=== PATIENT | female | born 1945 | race Caucasian/White ===

== ENCOUNTER 2020-08-12 20:52 | Inpatient (IN) | payer MEDICARE, SELFPAY ==
[2020-08-13] VITALS (10 sets, daily range): BP systolic 101–152; BP diastolic 46–88; PULSE 74–117; RESP 18–28; TEMP 36.3–37.1; O2SAT 94–100; BMI 12.9
[2020-08-13] MEDS: LORazepam 1 MG TABLET PO (00:25)
[2020-08-13] MEDS: methylPREDNISolone Sod Succ/PF 125 MG/2 ML VIAL 60 MG IVPUSH (05:23)
--- NOTE | 2020-08-13 05:42 | P.HPIM_ITS ---
History of Present Illness Date of Service: 08/12/20 Chief Complaint: shortness of breath this is a pleasant 74-year-old female who presents to the hospice with complaints of shortness of breath for the past 2 days. Patient has underlying COPD and is on baseline 2-3 L of oxygen she reports an increase in her cough and sputum production. She has no fever and chill, she is an active smoker, no recent sick contacts or travel. She denies any chest pain, any headache or change in vision, no palpitation, no abdominal pain nausea or vomiting, no urinary symptoms and no lower extremity edema. patient denies any melena or red blood per rectum On arrival to the ED patient hemodynamically stable with no significant abnormal vitals labs are significant for hemoglobin of 8.3 ( 11.7 on 07/02), hematocrit of 23 point and MCV of 96.3 guaiac negative patient received 1 unit of PRBC in the EDwill be admitted for COPD exacerbation and acute anemia past medical history: COPD, vertigo, anxiety and depression, past surgical history: I was unable to obtain this information social history: Comes from home, lives with her son,uses device to ambulate, currently smokes 5-10 cigarettes daily, denies any alcohol or illicit drugs Review of Systems Review of Systems: Yes all other systems are reviewed and are negative Meds Allergies Allergy/AdvReac Type Severity Reaction Status Date / Time No Known Allergies Allergy Unverified 07/30/20 14:53 [No Known Allergies*] Home Medications Medication Instructions Recorded Confirmed Type albuterol sulfate 1 inh INHALATION Q4-6H PRN 08/13/20 08/13/20 History buspirone 5 mg PO TID 08/13/20 08/13/20 History mgdyxzxvdvo-umjfdngug-lrroodml 1 puff INHALATION Q4-6H PRN 08/13/20 08/13/20 History ipratropium-albuterol 3 ml INHALATION Q6H PRN 08/13/20 08/13/20 History ipratropium-albuterol [Combivent 1 puff INHALATION BID 08/13/20 08/13/20 History Respimat] lorazepam 1 mg PO BEDTIME PRN 08/13/20 08/13/20 History meclizine 12.5 mg PO TID PRN 08/13/20 08/13/20 History metoprolol tartrate 12.5 mg PO BID 08/13/20 08/13/20 History omeprazole 20 mg PO DAILY 08/13/20 08/13/20 History oxycodone-acetaminophen 1 tab PO Q6H PRN 08/13/20 08/13/20 History Physical Exam Vital Signs and Narrative: Vital Signs: Last Vital Signs Temp 97.4 F 08/13/20 04:52 Pulse 117 H 08/13/20 04:52 Resp 28 H 08/13/20 04:52 BP 130/78 08/13/20 04:52 Pulse Ox 94 08/13/20 04:52 Body Mass Index 12.9 vital significant for temp of 99? per warm, pulse of 110, respiratory rate of 28, blood pressure 122/34, pulse ox 100% on 3 L of oxygen Eyes: General: appearance normal, both eyes and all related structures Resp: Other: tachycardia, minimal wheezing Results Labs Labs: Laboratory Tests 08/12/20 08/12/20 08/12/20 17:05 17:05 17:05 WBC 8.8 RBC 2.44 L Hgb 8.3 L Hct 23.5 L MCV 96.3 MCH 34.0 H MCHC 35.3 H RDW Coeff of Joe 18.0 H Plt Count 261 MPV 10.4 Immature Gran % (Auto) 0.3 Neut % (Auto) 62.1 Lymph % (Auto) 12.7 L [place] % (Auto) 9.5 Eos % (Auto) 14.7 H Baso % (Auto) 0.7 Abs Immat Gran (auto) 0.03 Absolute Lymphs (auto) 1.1 L Absolute Monos (auto) 0.8 Absolute Eos (auto) 1.3 H Absolute Basos (auto) 0.1 Absolute Nucleated RBC 0.000 Nucleated RBC % (auto) 0.0 Absolute Neutrophils 5.4 PT INR APTT Hold Blue Top Sodium 140 Potassium 3.9 Chloride 99 Bicarbonate 36 H Anion Gap 9 L BUN 7 L D Creatinine 0.58 Estimated Creat Clear 43.9 Est GFR (Non-Af Amer) > 60 Random Glucose 86 Lactic Acid Iron 49 TIBC 318 Iron Saturation 15 Ferritin 19 Total Bilirubin 1.1 H Direct Bilirubin 0.6 H AST 18 ALT 9 Alkaline Phosphatase 58 Troponin I High Sens < 3.5 D B-Natriuretic Peptide 126 H Total Protein 6.2 L Albumin 3.8 Vitamin B12 Folate Urine Color Urine Appearance Urine pH Ur Specific [place] Urine Protein Urine Glucose (UA) Urine Ketones Urine Blood Urine Nitrite Urine WBC (Auto) Stool Occult Blood ABO Group Blood Bank Comment 08/12/20 08/12/20 08/12/20 17:05 17:53 17:53 WBC RBC Hgb Hct MCV MCH MCHC RDW Coeff of Joe Plt Count MPV Immature Gran % (Auto) Neut % (Auto) Lymph % (Auto) [place] % (Auto) Eos % (Auto) Baso % (Auto) Abs Immat Gran (auto) Absolute Lymphs (auto) Absolute Monos (auto) Absolute Eos (auto) Absolute Basos (auto) Absolute Nucleated RBC Nucleated RBC % (auto) Absolute Neutrophils PT 13.5 H D INR 1.1 APTT 38.0 Hold Blue Top SEE NOTE Sodium Potassium Chloride Bicarbonate Anion Gap BUN Creatinine Estimated Creat Clear Est GFR (Non-Af Amer) Random Glucose Lactic Acid 0.6 Iron TIBC Iron Saturation Ferritin Total Bilirubin Direct Bilirubin AST ALT Alkaline Phosphatase Troponin I High Sens B-Natriuretic Peptide Total Protein Albumin Vitamin B12 Folate Urine Color YELLOW Urine Appearance CLEAR Urine pH 7.0 Ur Specific [place] 1.010 Urine Protein NEG Urine Glucose (UA) NEG Urine Ketones NEG Urine Blood NEG Urine Nitrite NEG Urine WBC (Auto) NEG Stool Occult Blood ABO Group Blood Bank Comment 08/12/20 08/12/20 08/12/20 19:03 19:50 19:59 WBC RBC Hgb Hct MCV MCH MCHC RDW Coeff of Joe Plt Count MPV Immature Gran % (Auto) Neut % (Auto) Lymph % (Auto) [place] % (Auto) Eos % (Auto) Baso % (Auto) Abs Immat Gran (auto) Absolute Lymphs (auto) Absolute Monos (auto) Absolute Eos (auto) Absolute Basos (auto) Absolute Nucleated RBC Nucleated RBC % (auto) Absolute Neutrophils PT INR APTT Hold Blue Top Sodium Potassium Chloride Bicarbonate Anion Gap BUN Creatinine Estimated Creat Clear Est GFR (Non-Af Amer) Random Glucose Lactic Acid Iron TIBC Iron Saturation Ferritin Total Bilirubin Direct Bilirubin AST ALT Alkaline Phosphatase Troponin I High Sens B-Natriuretic Peptide Total Protein Albumin Vitamin B12 Folate Urine Color Urine Appearance Urine pH Ur Specific [place] Urine Protein Urine Glucose (UA) Urine Ketones Urine Blood Urine Nitrite Urine WBC (Auto) Stool Occult Blood NEG ABO Group T&S/BLOOD AVAILABLE Blood Bank Comment PRODUCT AVAILABLE 08/13/20 08/13/20 07:00 07:00 WBC Cancelled RBC Cancelled Hgb Cancelled Hct Cancelled MCV Cancelled MCH Cancelled MCHC Cancelled RDW Coeff of Joe Cancelled Plt Count Cancelled MPV Cancelled Immature Gran % (Auto) Cancelled Neut % (Auto) Cancelled Lymph % (Auto) Cancelled [place] % (Auto) Cancelled Eos % (Auto) Cancelled Baso % (Auto) Cancelled Abs Immat Gran (auto) Cancelled Absolute Lymphs (auto) Cancelled Absolute Monos (auto) Cancelled Absolute Eos (auto) Cancelled Absolute Basos (auto) Cancelled Absolute Nucleated RBC Cancelled Nucleated RBC % (auto) Cancelled Absolute Neutrophils PT INR APTT Hold Blue Top Sodium Potassium Chloride Bicarbonate Anion Gap BUN Creatinine Estimated Creat Clear Est GFR (Non-Af Amer) Random Glucose Lactic Acid Iron TIBC Iron Saturation Ferritin Total Bilirubin Direct Bilirubin AST ALT Alkaline Phosphatase Troponin I High Sens B-Natriuretic Peptide Total Protein Albumin Vitamin B12 Cancelled Folate Cancelled Urine Color Urine Appearance Urine pH Ur Specific [place] Urine Protein Urine Glucose (UA) Urine Ketones Urine Blood Urine Nitrite Urine WBC (Auto) Stool Occult Blood ABO Group Blood Bank Comment Assessment and Plan (1) COPD with exacerbation: Status: Acute cough, dyspnea, sputum production on baseline 3 L of oxygen currently not requiring more chest x-ray negative for any acute infection or pulmonary congestion Plan: - Start patient on Solu-Medrol IV 40 b.i.d. had - DuoNeb q.i.d., schedule as well as p.r.n - O2 as required - azithromycin (2) Normocytic anemia: Status: Acute - unclear etiology at this time - hemoglobin dropped from 11 to 8 now within the span of 1 month - patient guaiac negative - denies taking any NSAIDs, denies any recent significant weight - no evidence of abdominal pain, GI bleed Plan - will obtain ferritin - B12 and folic acid - may need colonoscopy on outpatient basis (3) Anxiety: Status: Acute continue buspar and lorazepam
[2020-08-13 06:52] LABS: Basophils Percent Auto 0.3 % (0-2); Hematocrit 33.1 % (37-47); Hemoglobin 11.2 g/dl (12.0-16.0); Imm Gran Abs Auto 0.06 X10*3/uL (0.00-0.03); Imm Gran Pct Auto 0.8 % (0.0-0.4); Lymphocytes Absolute Auto 0.6 X10*3/uL (1.2-4.9); Lymphocytes Percent Auto 7.5 % (20-40); MANUAL DIFF FLAG SCAN; Mean Corpuscular HGB Conc 33.8 g/dl (31.0-35.0); Mean Corpuscular Hemoglobin 32.5 pg (27.0-33.0); Mean Corpuscular Volume 95.9 fL (80-98); Mean Platelet Volume 10.9 fL (9.4-12.3); Monocytes Absolute Auto 0.1 X10*3/uL (0.1-1.2); Monocytes Percent Auto 1.7 % (2-11); Neutrophils Absolute Auto 6.7 X10*3/uL (2.0-8.3); Neutrophils Percent Auto 89.7 % (45-73); Platelet Count 305 X10*3/uL (160-400); Red Blood Count 3.45 X10*6/uL (4.20-5.50); Red Cell Distribution Width 17.6 % (11.0-16.0); SCAN SMEAR FLAG 1; White Blood Count 7.4 X10*3/uL (4.8-10.8)
[2020-08-13] MEDS: 0.9 % Sodium Chloride Flush 3 ML SYRINGE 2 ML IVFLUSH ×3 (07:53→21:25)
[2020-08-13] MEDS: Metoprolol Tartrate 12.5 MG HALFTAB PO ×2 (07:55→21:25)
[2020-08-13] MEDS: busPIRone HCl 5 MG TABLET PO ×3 (07:57→21:32)
[2020-08-13 08:03] LABS: Folate 5.2 ng/mL (> or = 4.0); Vitamin B12 1099 pg/mL (200-900)
[2020-08-13] MEDS: Albuterol/Iprat 2.5/0.5MG 3 ML AMPUL.NEB INHALE ×4 (08:08→20:13)
[2020-08-13 08:22] LABS: SLIDE REVIEW VERIFIED
--- NOTE | 2020-08-13 10:08 | MHC.CM.PN ---
CM spoke with Son/HCP/Thien because Patient was sound asleep. Patient lives in a house with her Son and she has a walker PRN. Patient is active with [facility] and the goal is to return home with these services.CM has initiated and will follow for dc planning.Patient's O2 is from [facility]. IMM addressed and original will be mailed certified letter to Son and a copy has been placed on the chart.
--- NOTE | 2020-08-13 12:48 | P.PNIM_ITS ---
Subjective Subjective Date of Service: 08/13/20 Interval History: patient seen and examined at bedside patient still reporting shortness of breath patient was little anxious Constitutional Constitutional: Reports weakness Cardiovascular Cardiovascular: Reports dyspnea Respiratory Respiratory: Reports chest congestion and Reports dyspnea Neurologic Neurologic: Reports weakness Physical Exam Vital Signs and I&O and Narrative: Vital Signs and I&O: Vital Signs Temp 98.4 F 08/13/20 11:37 Pulse 83 08/13/20 11:37 Resp 20 08/13/20 11:37 BP 115/58 L 08/13/20 11:37 Pulse Ox 100 08/13/20 11:37 Intake & Output 08/12/20 08/13/20 08/13/20 18:59 06:59 18:59 Output Total 440 / 440 Balance -440 / -440 Urine Output (Aver age ml/kg/hr) 1.10 1.10 Weight 33.2 kg Output: Output, Urine Am ount 440 / 440 Other: Number of Incont inent Voids 1 Number of Bowel Movements 1 Urine Bedpan incontinet Urine Color Yellow Stool Bedpan Stool Color Dark Brown Stool Consistenc y Semi Formed Body Mass Index 12.9 Const: General: anxious Resp: Effort & Inspection: audible wheezes Auscultation: wheezes Cardio: Jugular venous distension: no JVD Objective Data Current Medications Generic Name Dose Route Start Last Admin Trade Name Freq PRN Reason Stop Dose Admin Acetaminophen 650 mg 08/13/20 03:41 Acetaminophen 325 Mg Tablet PO Q6H PRN Pain, Mild (Pain Scale 1-3) Albuterol/Ipratropium 3 ml 08/13/20 08:00 08/13/20 11:17 Albuterol/Iprat 2.5/0.5mg 3 Ml Ampul.Neb INHALE 3 ml RQ4H WHILE AWAKE MARCOS Administration Albuterol/Ipratropium 3 ml 08/13/20 03:42 Albuterol/Iprat 2.5/0.5mg 3 Ml Ampul.Neb INHALE RQ4H PRN Wheezing Buspirone HCl 5 mg 08/13/20 09:00 08/13/20 07:57 Buspirone Hcl 5 Mg Tablet PO 5 mg TID MARCOS Administration Docusate Sodium 100 mg 08/13/20 03:44 Docusate Sodium 100 Mg Capsule PO Q24H PRN Constipation Lorazepam 0.5 mg 08/13/20 03:45 Lorazepam 0.5 Mg Tablet PO DAILY PRN Anxiety Lorazepam 1 mg 08/13/20 21:00 08/13/20 00:25 Lorazepam 1 Mg Tablet PO 1 mg BEDTIME PRN Administration Sleep Meclizine HCl 12.5 mg 08/13/20 03:47 Meclizine Hcl 12.5 Mg Tablet PO TID PRN DIZZINESS Methylprednisolone Sodium Succinate 40 mg 08/13/20 08:30 08/13/20 09:19 Methylprednisolone Sod Succ/Pf 40 Mg/Ml Vial IVPUSH 40 mg Q12H MARCOS Administration Metoprolol Tartrate 12.5 mg 08/13/20 09:00 08/13/20 07:55 Metoprolol Tartrate 12.5 Mg Halftab PO 12.5 mg BID MARCOS Administration Protocol Omeprazole 20 mg 08/13/20 06:30 08/13/20 05:27 Omeprazole 20 Mg Capsule.Dr PO Not Given DAILY@0630 [facility] Ondansetron HCl 4 mg 08/13/20 03:49 Ondansetron Hcl 4 Mg/2 Ml Vial IVPUSH Q8H PRN Nausea and Vomiting Sodium Chloride 2 ml 08/13/20 08:00 08/13/20 07:53 0.9 % Sodium Chloride Flush 3 Ml Syringe IVFLUSH 2 ml QSHIFT [facility] Administration Labs CBC & Chem 7: 08/13/20 05:45 08/12/20 17:05 Labs: Laboratory Results - last 24 hr 08/12/20 08/12/20 08/12/20 17:05 17:05 17:05 MCV 96.3 MCH 34.0 H MCHC 35.3 H RDW RDW Coeff of Joe 18.0 H Plt Count 261 MPV 10.4 Immature Gran % (Auto) 0.3 Neut % (Auto) 62.1 Lymph % (Auto) 12.7 L [place] % (Auto) 9.5 Eos % (Auto) 14.7 H Baso % (Auto) 0.7 Neut # (Auto) Lymph # (Auto) [place] # (Auto) Eos # (Auto) Baso # (Auto) Abs Immat Gran (auto) 0.03 Absolute Lymphs (auto) 1.1 L Absolute Monos (auto) 0.8 Absolute Eos (auto) 1.3 H Absolute Basos (auto) 0.1 Absolute Nucleated RBC 0.000 Nucleated RBC % (auto) 0.0 Absolute Neutrophils 5.4 Smear Tech's Comments PT INR APTT Hold Blue Top Bicarbonate 36 H Anion Gap 9 L Estimated Creat Clear 43.9 Est GFR (Non-Af Amer) > 60 Random Glucose 86 Lactic Acid Iron 49 TIBC 318 Iron Saturation 15 Ferritin 19 Total Bilirubin 1.1 H Direct Bilirubin 0.6 H AST 18 ALT 9 Alkaline Phosphatase 58 Troponin I High Sens < 3.5 D B-Natriuretic Peptide 126 H Total Protein 6.2 L Albumin 3.8 Vitamin B12 Folate Urine Color Urine Appearance Urine pH Ur Specific [place] Urine Protein Urine Glucose (UA) Urine Ketones Urine Blood Urine Nitrite Urine WBC (Auto) Stool Occult Blood Blood Type ABO Group Antibody Screen Blood Bank Comment 08/12/20 08/12/20 08/12/20 17:05 17:53 17:53 MCV MCH MCHC RDW RDW Coeff of Joe Plt Count MPV Immature Gran % (Auto) Neut % (Auto) Lymph % (Auto) [place] % (Auto) Eos % (Auto) Baso % (Auto) Neut # (Auto) Lymph # (Auto) [place] # (Auto) Eos # (Auto) Baso # (Auto) Abs Immat Gran (auto) Absolute Lymphs (auto) Absolute Monos (auto) Absolute Eos (auto) Absolute Basos (auto) Absolute Nucleated RBC Nucleated RBC % (auto) Absolute Neutrophils Smear Tech's Comments PT 13.5 H D INR 1.1 APTT 38.0 Hold Blue Top SEE NOTE Bicarbonate Anion Gap Estimated Creat Clear Est GFR (Non-Af Amer) Random Glucose Lactic Acid 0.6 Iron TIBC Iron Saturation Ferritin Total Bilirubin Direct Bilirubin AST ALT Alkaline Phosphatase Troponin I High Sens B-Natriuretic Peptide Total Protein Albumin Vitamin B12 Folate Urine Color YELLOW Urine Appearance CLEAR Urine pH 7.0 Ur Specific [place] 1.010 Urine Protein NEG Urine Glucose (UA) NEG Urine Ketones NEG Urine Blood NEG Urine Nitrite NEG Urine WBC (Auto) NEG Stool Occult Blood Blood Type ABO Group Antibody Screen Blood Bank Comment 08/12/20 08/12/20 08/12/20 19:03 19:50 19:59 MCV MCH MCHC RDW RDW Coeff of Joe Plt Count MPV Immature Gran % (Auto) Neut % (Auto) Lymph % (Auto) [place] % (Auto) Eos % (Auto) Baso % (Auto) Neut # (Auto) Lymph # (Auto) [place] # (Auto) Eos # (Auto) Baso # (Auto) Abs Immat Gran (auto) Absolute Lymphs (auto) Absolute Monos (auto) Absolute Eos (auto) Absolute Basos (auto) Absolute Nucleated RBC Nucleated RBC % (auto) Absolute Neutrophils Smear Tech's Comments PT INR APTT Hold Blue Top Bicarbonate Anion Gap Estimated Creat Clear Est GFR (Non-Af Amer) Random Glucose Lactic Acid Iron TIBC Iron Saturation Ferritin Total Bilirubin Direct Bilirubin AST ALT Alkaline Phosphatase Troponin I High Sens B-Natriuretic Peptide Total Protein Albumin Vitamin B12 Folate Urine Color Urine Appearance Urine pH Ur Specific [place] Urine Protein Urine Glucose (UA) Urine Ketones Urine Blood Urine Nitrite Urine WBC (Auto) Stool Occult Blood NEG Blood Type ABO Group T&S/BLOOD AVAILABLE Antibody Screen Blood Bank Comment PRODUCT AVAILABLE 08/12/20 08/13/20 08/13/20 19:59 05:45 05:45 MCV 95.9 MCH 32.5 MCHC 33.8 RDW 17.6 H RDW Coeff of Joe Plt Count 305 MPV 10.9 Immature Gran % (Auto) 0.8 H Neut % (Auto) 89.7 H Lymph % (Auto) 7.5 L [place] % (Auto) 1.7 L Eos % (Auto) 0.0 Baso % (Auto) 0.3 Neut # (Auto) 6.7 Lymph # (Auto) 0.6 L [place] # (Auto) 0.1 Eos # (Auto) 0.0 Baso # (Auto) 0.0 Abs Immat Gran (auto) 0.06 H Absolute Lymphs (auto) Absolute Monos (auto) Absolute Eos (auto) Absolute Basos (auto) Absolute Nucleated RBC 0.000 Nucleated RBC % (auto) 0.0 Absolute Neutrophils Smear Tech's Comments VERIFIED PT INR APTT Hold Blue Top Bicarbonate Anion Gap Estimated Creat Clear Est GFR (Non-Af Amer) Random Glucose Lactic Acid Iron TIBC Iron Saturation Ferritin Total Bilirubin Direct Bilirubin AST ALT Alkaline Phosphatase Troponin I High Sens B-Natriuretic Peptide Total Protein Albumin Vitamin B12 1099 H Folate 5.2 Urine Color Urine Appearance Urine pH Ur Specific [place] Urine Protein Urine Glucose (UA) Urine Ketones Urine Blood Urine Nitrite Urine WBC (Auto) Stool Occult Blood Blood Type O Positive ABO Group Antibody Screen NEGATIVE Blood Bank Comment 08/13/20 08/13/20 07:00 07:00 MCV Cancelled MCH Cancelled MCHC Cancelled RDW RDW Coeff of Joe Cancelled Plt Count Cancelled MPV Cancelled Immature Gran % (Auto) Cancelled Neut % (Auto) Cancelled Lymph % (Auto) Cancelled [place] % (Auto) Cancelled Eos % (Auto) Cancelled Baso % (Auto) Cancelled Neut # (Auto) Lymph # (Auto) [place] # (Auto) Eos # (Auto) Baso # (Auto) Abs Immat Gran (auto) Cancelled Absolute Lymphs (auto) Cancelled Absolute Monos (auto) Cancelled Absolute Eos (auto) Cancelled Absolute Basos (auto) Cancelled Absolute Nucleated RBC Cancelled Nucleated RBC % (auto) Cancelled Absolute Neutrophils Smear Tech's Comments PT INR APTT Hold Blue Top Bicarbonate Anion Gap Estimated Creat Clear Est GFR (Non-Af Amer) Random Glucose Lactic Acid Iron TIBC Iron Saturation Ferritin Total Bilirubin Direct Bilirubin AST ALT Alkaline Phosphatase Troponin I High Sens B-Natriuretic Peptide Total Protein Albumin Vitamin B12 Cancelled Folate Cancelled Urine Color Urine Appearance Urine pH Ur Specific [place] Urine Protein Urine Glucose (UA) Urine Ketones Urine Blood Urine Nitrite Urine WBC (Auto) Stool Occult Blood Blood Type ABO Group Antibody Screen Blood Bank Comment
--- NOTE | 2020-08-13 15:10 | MHC.CLN ---
PT IS MODERATELY MALNOURISHED WILL ADD ESNURE TO INCREASE KCALS SEE ALSO NUTRITION ASSESSMENT
[2020-08-13] MEDS: oxyCODONE HCl Immed Release 5 MG TABLET 10 MG PO (17:16)
[2020-08-14] VITALS (10 sets, daily range): BP systolic 93–133; BP diastolic 45–64; PULSE 74–82; RESP 18–20; TEMP 36.6–37.2; O2SAT 92–99; BMI 14.7
[2020-08-14] MEDS: oxyCODONE HCl Immed Release 5 MG TABLET 10 MG PO ×4 (00:13→20:58)
[2020-08-14] MEDS: LORazepam 1 MG TABLET PO ×2 (00:37→20:13)
[2020-08-14] MEDS: Omeprazole 20 MG CAPSULE.DR PO (05:20)
[2020-08-14] MEDS: LORazepam 0.5 MG TABLET PO (05:22)
[2020-08-14] MEDS: Albuterol/Iprat 2.5/0.5MG 3 ML AMPUL.NEB INHALE ×3 (07:44→19:59)
[2020-08-14] MEDS: Flu Vacc QS2020-21(6mos up)/PF 0.5 ML SYRINGE IM (08:00)
[2020-08-14] MEDS: Metoprolol Tartrate 12.5 MG HALFTAB PO ×2 (08:01→20:12)
[2020-08-14] MEDS: 0.9 % Sodium Chloride Flush 3 ML SYRINGE 2 ML IVFLUSH ×2 (08:01→15:13)
[2020-08-14] MEDS: busPIRone HCl 5 MG TABLET PO ×3 (08:04→20:13)
--- NOTE | 2020-08-14 13:58 | HO.PM.IMPN ---
Subjective Subjective Date of Service: 08/13/20 Interval History: patient seen and examined at bedside patient still reporting shortness of breath some improvement Constitutional Constitutional: Reports weakness Cardiovascular Cardiovascular: Reports dyspnea Respiratory Respiratory: Reports chest congestion and Reports dyspnea Neurologic Neurologic: Reports weakness Physical Exam Vital Signs and I&O and Narrative: Vital Signs and I&O: Vital Signs Temp 98.6 F 08/14/20 11:29 Pulse 79 08/14/20 11:29 Resp 20 08/14/20 11:29 BP 114/53 L 08/14/20 11:29 Pulse Ox 96 08/14/20 11:29 Intake & Output 08/13/20 08/14/20 08/14/20 18:59 06:59 18:59 Intake Total 360 / 360 120 / 120 Output Total 0 / 1200 1200 / 1200 300 / 300 Balance 0 / -840 -840 / -840 -180 / -180 Urine Output (Aver age ml/kg/hr) 0.00 3.01 0.75 Weight 33.2 kg Intake: Intake, Oral [place] unt 360 / 360 120 / 120 Output: Output, Urine Am ount 0 / 1000 1000 / 1000 300 / 300 Output, Urine Am ount (Catheter) 200 / 200 Female Externa l 200 / 200 Other: Meal Refused No NPO No Lunch % Eaten 25% Dinner % Eaten 50% Number of Incont inent Voids 1 Number of Bowel Movements 3 Urine incontinet PUREWICK PUREWICK Urine Color Yellow Yellow Stool Bedpan Stool Color Black ([place]) Body Mass Index 12.9 Objective Data Current Medications Generic Name Dose Route Start Last Admin Trade Name Noeq PRN Reason Stop Dose Admin Acetaminophen 650 mg 08/13/20 03:41 Acetaminophen 325 Mg Tablet PO Q6H PRN Pain, Mild (Pain Scale 1-3) Albuterol/Ipratropium 3 ml 08/13/20 03:42 Albuterol/Iprat 2.5/0.5mg 3 Ml Ampul.Neb INHALE RQ4H PRN Wheezing Albuterol/Ipratropium 3 ml 08/14/20 08:00 08/14/20 11:31 Albuterol/Iprat 2.5/0.5mg 3 Ml Ampul.Neb INHALE 3 ml RQ4H WHILE AWAKE MARCOS Administration Buspirone HCl 5 mg 08/13/20 09:00 08/14/20 08:04 Buspirone Hcl 5 Mg Tablet PO 5 mg TID MARCOS Administration Docusate Sodium 100 mg 08/13/20 03:44 Docusate Sodium 100 Mg Capsule PO Q24H PRN Constipation Lorazepam 0.5 mg 08/13/20 03:45 08/14/20 05:22 Lorazepam 0.5 Mg Tablet PO 0.5 mg DAILY PRN Administration Anxiety Lorazepam 1 mg 08/13/20 21:00 08/14/20 00:37 Lorazepam 1 Mg Tablet PO 1 mg BEDTIME PRN Administration Sleep Lorazepam 1 mg 08/14/20 13:56 Lorazepam 1 Mg Tablet PO BEDTIME PRN Insomnia Meclizine HCl 12.5 mg 08/13/20 03:47 Meclizine Hcl 12.5 Mg Tablet PO TID PRN DIZZINESS Methylprednisolone Sodium Succinate 40 mg 08/13/20 08:30 08/14/20 08:01 Methylprednisolone Sod Succ/Pf 40 Mg/Ml Vial IVPUSH 40 mg Q12H MARCOS Administration Metoprolol Tartrate 12.5 mg 08/13/20 09:00 08/14/20 08:01 Metoprolol Tartrate 12.5 Mg Halftab PO 12.5 mg BID MARCOS Administration Protocol Omeprazole 20 mg 08/13/20 06:30 08/14/20 05:20 Omeprazole 20 Mg Capsule.Dr PO 20 mg DAILY@0630 MARCOS Administration Omeprazole 20 mg 08/15/20 09:00 Omeprazole 20 Mg/10 Ml Susp.Recon PO DAILY [facility] Ondansetron HCl 4 mg 08/13/20 03:49 Ondansetron Hcl 4 Mg/2 Ml Vial IVPUSH Q8H PRN Nausea and Vomiting Oxycodone HCl 10 mg 08/13/20 16:55 08/14/20 08:14 Oxycodone Hcl Immed Release 5 Mg Tablet PO 10 mg Q6H PRN Administration Pain, Moderate (Pain Scale 4-6 Sodium Chloride 2 ml 08/13/20 08:00 08/14/20 08:01 0.9 % Sodium Chloride Flush 3 Ml Syringe IVFLUSH 2 ml QSHIFT MARCOS Administration Labs CBC & Chem 7: 08/13/20 05:45 08/12/20 17:05 Assessment and Plan (1) COPD with exacerbation: Status: Acute Assessment and Plan: Still short of breath and wheezy some improvement continue IV steroids and nebulizer for 1 more day continue oxygen supplementation as need continue supportive management (2) Normocytic anemia: Status: Acute Assessment and Plan: hemoglobin was 8 on admission repeat hemoglobin around 11 no active bleeding monitor H&H (3) Anxiety: Status: Acute Assessment and Plan: continue home medication DVT prophylaxis mechanical devices given anemia
[2020-08-15] VITALS (10 sets, daily range): BP systolic 98–137; BP diastolic 48–56; PULSE 73–94; RESP 18–20; TEMP 36.3–37.2; O2SAT 95–100
[2020-08-15] MEDS: 0.9 % Sodium Chloride Flush 3 ML SYRINGE 2 ML IVFLUSH ×4 (00:17→23:53)
[2020-08-15] MEDS: oxyCODONE HCl Immed Release 5 MG TABLET 10 MG PO ×4 (05:03→23:52)
[2020-08-15] MEDS: busPIRone HCl 5 MG TABLET PO ×3 (07:30→20:18)
[2020-08-15] MEDS: Metoprolol Tartrate 12.5 MG HALFTAB PO ×2 (07:31→20:19)
[2020-08-15] MEDS: LORazepam 0.5 MG TABLET PO (07:34)
[2020-08-15] MEDS: Albuterol/Iprat 2.5/0.5MG 3 ML AMPUL.NEB INHALE ×4 (07:41→20:14)
--- NOTE | 2020-08-15 14:09 | HO.PM.IMPN ---
Subjective Subjective Interval History: patient seen and examined at bedside patient still reporting shortness of breath improving Physical Exam Vital Signs and I&O and Narrative: Vital Signs and I&O: Vital Signs Temp 97.8 F 08/15/20 11:44 Pulse 87 08/15/20 11:44 Resp 18 08/15/20 11:44 BP 137/56 L 08/15/20 11:44 Pulse Ox 95 08/15/20 11:44 Intake & Output 08/14/20 08/15/20 08/15/20 18:59 06:59 18:59 Intake Total 240 / 600 360 / 600 250 / 250 Output Total 300 / 1100 800 / 1100 550 / 550 Balance -60 / -500 -440 / -500 -300 / -300 Urine Output (Aver age ml/kg/hr) 0.75 1.76 1.21 Weight 37.8 kg Intake: Intake, Oral Anuj unt 240 / 360 120 / 360 250 / 250 Intake, Intraper itoneal Amount 240 / 240 Output: Output, Urine Am ount 300 / 1100 800 / 1100 550 / 550 Other: Meal Refused No Breakfast % Eate n 100% Lunch % Eaten 25% 50% Number of Incont inent Voids 1 Urine PUREWICK Bedpan Bedside Commode Urine Color Yellow Yellow Yellow Body Mass Index 14.7 Const: General: anxious Eyes: General: appearance normal, both eyes and all related structures Resp: Other: tachycardia, minimal wheezing Effort & Inspection: audible wheezes Auscultation: wheezes Cardio: Jugular venous distension: no JVD GI: Inspection: Yes normal to inspection Objective Data Current Medications Generic Name Dose Route Start Last Admin Trade Name Noeq PRN Reason Stop Dose Admin Acetaminophen 650 mg 08/13/20 03:41 Acetaminophen 325 Mg Tablet PO Q6H PRN Pain, Mild (Pain Scale 1-3) Albuterol/Ipratropium 3 ml 08/13/20 03:42 Albuterol/Iprat 2.5/0.5mg 3 Ml Ampul.Neb INHALE RQ4H PRN Wheezing Albuterol/Ipratropium 3 ml 08/14/20 08:00 08/15/20 11:22 Albuterol/Iprat 2.5/0.5mg 3 Ml Ampul.Neb INHALE 3 ml RQ4H WHILE AWAKE MARCOS Administration Buspirone HCl 5 mg 08/13/20 09:00 08/15/20 07:30 Buspirone Hcl 5 Mg Tablet PO 5 mg TID MARCOS Administration Docusate Sodium 100 mg 08/13/20 03:44 Docusate Sodium 100 Mg Capsule PO Q24H PRN Constipation Lorazepam 0.5 mg 08/13/20 03:45 08/15/20 07:34 Lorazepam 0.5 Mg Tablet PO 0.5 mg DAILY PRN Administration Anxiety Lorazepam 1 mg 08/13/20 21:00 08/14/20 20:13 Lorazepam 1 Mg Tablet PO 1 mg BEDTIME PRN Administration Sleep Lorazepam 1 mg 08/14/20 13:56 Lorazepam 1 Mg Tablet PO BEDTIME PRN Insomnia Meclizine HCl 12.5 mg 08/13/20 03:47 Meclizine Hcl 12.5 Mg Tablet PO TID PRN DIZZINESS Methylprednisolone Sodium Succinate 40 mg 08/13/20 08:30 08/15/20 07:30 Methylprednisolone Sod Succ/Pf 40 Mg/Ml Vial IVPUSH 40 mg Q12H MARCOS Administration Metoprolol Tartrate 12.5 mg 08/13/20 09:00 08/15/20 07:31 Metoprolol Tartrate 12.5 Mg Halftab PO 12.5 mg BID MARCOS Administration Protocol Omeprazole 20 mg 08/15/20 06:30 08/15/20 05:05 Omeprazole 20 Mg/10 Ml Susp.Recon PO 20 mg DAILY@0630 MARCOS Administration Ondansetron HCl 4 mg 08/13/20 03:49 Ondansetron Hcl 4 Mg/2 Ml Vial IVPUSH Q8H PRN Nausea and Vomiting Oxycodone HCl 10 mg 08/13/20 16:55 08/15/20 11:16 Oxycodone Hcl Immed Release 5 Mg Tablet PO 10 mg Q6H PRN Administration Pain, Moderate (Pain Scale 4-6 Sodium Chloride 2 ml 08/13/20 08:00 08/15/20 07:31 0.9 % Sodium Chloride Flush 3 Ml Syringe IVFLUSH 2 ml QSHIFT MARCOS Administration Labs CBC & Chem 7: 08/13/20 05:45 08/12/20 17:05 Assessment and Plan (1) COPD with exacerbation: Status: Acute Assessment and Plan: shortness of breath and wheezing improving continue IV steroids and nebulizer for 1 more day continue oxygen supplementation as need continue supportive management (2) Normocytic anemia: Status: Acute Assessment and Plan: hemoglobin was 8 on admission repeat hemoglobin around 11 no active bleeding monitor H&H (3) Anxiety: Status: Acute Assessment and Plan: continue home medication DVT prophylaxis mechanical devices given anemia
[2020-08-15] MEDS: LORazepam 1 MG TABLET PO (20:18)
[2020-08-16 04:00] VITALS: BP 110/52; PULSE 76; RESP 17; TEMP 36.4; O2SAT 100
[2020-08-16] MEDS: oxyCODONE HCl Immed Release 5 MG TABLET 10 MG PO (05:56)
[2020-08-16 07:32] VITALS: BP 100/50; PULSE 73; RESP 20; TEMP 36.7; O2SAT 95
[2020-08-16] MEDS: Albuterol/Iprat 2.5/0.5MG 3 ML AMPUL.NEB INHALE ×2 (07:46→11:21)
[2020-08-16] MEDS: 0.9 % Sodium Chloride Flush 3 ML SYRINGE 2 ML IVFLUSH (09:40)
[2020-08-16 09:41] VITALS: PULSE 88
[2020-08-16] MEDS: LORazepam 0.5 MG TABLET PO (09:41)
[2020-08-16] MEDS: Metoprolol Tartrate 12.5 MG HALFTAB PO (09:41)
[2020-08-16] MEDS: busPIRone HCl 5 MG TABLET PO (09:41)
[2020-08-16 11:40] VITALS: BP 125/69; PULSE 73; RESP 20; TEMP 36.6; O2SAT 96
--- NOTE | 2020-08-16 12:03 | PM.DS ---
DS: Providers Provider Date of admission: 08/12/20 20:52 Primary care physician: Ca Hurst MD DS: Diagnosis Discharge Diagnosis (1) COPD with exacerbation: Status: Acute (2) Normocytic anemia: Status: Acute (3) Anxiety: Status: Acute (4) Anticoagulated on Coumadin: Status: Acute DS: Summary Hospital Course Hospital Course: 74-year-old female admitted with COPD exacerbation , patient was started on IV steroid nebulizer treatment and oxygen supplementation, shortness of breath and wheezing improved slowly, patient was stable switched to p.o. prednisone and doxycycline on discharge patient was also found to have anemia with hemoglobin around 8.2, previous hemoglobin was 9.3, patient was given 1 unit of PRBCs in the ER, hemoglobin improved to 11, no active bleeding was found, stool occult was negative. H&H remained stable, patient was continued on PPI, and started on iron tablets, patient was continued on Coumadin on discharge, patient will need follow-up with Gastroenterology as outpatient, patient will need repeat CBC and PT INR next week ordered on patient was stable discharged home with resumption of visiting nurse services Time Spent with Patient Time attestation: Total time spent providing and/or coordinating discharge services: Physical Exam Vital Signs and I&O and Narrative: Vital Signs and I&O: Vital Signs Temp 97.8 F 08/16/20 11:40 Pulse 73 08/16/20 11:40 Resp 20 08/16/20 11:40 BP 125/69 08/16/20 11:40 Pulse Ox 96 08/16/20 11:40 Intake & Output 08/15/20 08/16/20 08/16/20 18:59 06:59 18:59 Intake Total 370 / 850 480 / 850 Output Total 550 / 750 200 / 750 Balance -180 / 100 280 / 100 Urine Output (Aver age ml/kg/hr) 1.21 0.44 Intake: Intake, Oral [place] unt 370 / 850 480 / 850 Output: Output, Urine Am ount 550 / 750 200 / 750 Other: Meal Refused No Breakfast % Eate n 100% Lunch % Eaten 50% Dinner % Eaten 75% Urine Bedside Commode Bedside Commode Urine Color Yellow Yellow Body Mass Index 14.7 Discharge Plan Discharge Patient Disposition: Home Health Service Referrals: [facility] [Outside] aC Hurst MD [Primary Care Provider] - Discharge Medications: New lorazepam 1 mg Tablet 1 mg PO BEDTIME PRN (Reason: Insomnia) 10 Days RF: 0 prednisone 20 mg tablet 40 mg PO DAILY Qty: 10 RF: 0 doxycycline hyclate 100 mg capsule 100 mg PO BID Qty: 10 RF: 0 ferrous sulfate 325 mg (65 mg iron) tablet 325 mg PO BID Qty: 60 RF: 0 Continued buspirone 5 mg Tablet 5 mg PO TID RF: 0 ipratropium-albuterol 0.5 mg-3 mg(2.5 mg base)/3 mL Solution For Nebulization 3 ml INHALATION Q6H PRN (Reason: Dyspnea) RF: 0 meclizine 12.5 mg Tablet 12.5 mg PO TID PRN (Reason: Dizziness) RF: 0 oxycodone-acetaminophen 10-325 mg Tablet 1 tab PO Q6H PRN (Reason: Mild Pain (Scale Score 1-4)) RF: 0 albuterol sulfate 90 mcg/actuation Hfa Aerosol Inhaler 1 inh INHALATION Q4-6H PRN (Reason: Dyspnea) RF: 0 metoprolol tartrate 25 mg Tablet 12.5 mg PO BID RF: 0 Combivent Respimat 20-100 mcg/actuation Mist 1 puff INHALATION BID RF: 0 [id number] 1 puff inhalation Q4-6H PRN (Reason: Dyspnea) RF: 0 omeprazole 20 mg Capsule,Delayed Release(Dr/Ec) 20 mg PO DAILY Qty: 30 RF: 0 Discharge Orders: Discharge Order (Routine); Ordered 08/16/20 Ordered By: Fito Coley Diet: advance to your usual diet Activity on Discharge: As tolerated Patient Instructions: Iron Supplements (By mouth), Doxycycline (By mouth), Lorazepam (By mouth), Prednisone (By mouth) Stand Alone Forms: Community Support Discharge Date/Time: 08/16/20 14:57 Other Ambulatory Orders: Complete Blood Count Auto Diff (Routine) Timeframe: 20200819 Facility: [facility] - Location: [address]-Lab Ordered By: Fito Coley Prothrombin Time INR (Routine) Timeframe: 20200820 Facility: [facility] - Location: [address]-Lab Ordered By: Fito Coley Visit Report Forms: Patient Portal Discharge page Care Plan Goals: see discharge instructions Health Concerns: see discharge instructions Plan of Treatment: see discharge instructions
--- NOTE | 2020-08-16 12:07 | MHC.CM.PN ---
Patient has been medically cleared for dc to home today with resumption of [facility], who has been notified of today's dc.Second IMM addressed.
== END 2020-08-16 14:57 | disposition home health service (06) | DRG 192 ==
LOC: HO.ED 23:13 → HO.IMC 08-13 00:14
PROVIDERS: Admitting Provider Internal Medicine; Emergency Provider Internal Medicine; PCP Internal Medicine; Visit Provider Internal Medicine
DX: J44.1 Chronic obstructive pulmonary disease with (acute) exacerbation (principal); D64.9 Anemia, unspecified; F41.9 Anxiety disorder, unspecified; F17.210 Nicotine dependence, cigarettes, uncomplicated; Z71.6 Tobacco abuse counseling; Z99.81 Dependence on supplemental oxygen; Z79.51 Long term (current) use of inhaled steroids; Z79.891 Long term (current) use of opiate analgesic; Z79.899 Other long term (current) drug therapy; Z23 Encounter for immunization
CPT/HCPCS: 36415; 71045; 80051; 80076; 81003; 82272; 82565; 82607; 82728; 82746; 82947; 83540; 83550; 83605; 83880; 84484; 84520; 85025; 85610; 85730; 86850; 86900; 86901; 87040; 90471; 90686; 94640; 96365; 96367; 96375; 97162; 99285; J2920; J2930; P9016

== ENCOUNTER 2020-10-01 12:10 | Inpatient (IN) | payer MEDICARE, SELFPAY ==
[2020-10-01] VITALS (9 sets, daily range): BP systolic 96–109; BP diastolic 32–52; PULSE 80–105; RESP 16–20; TEMP 36.4–36.9; O2SAT 97–100; BMI 12.8
--- NOTE | 2020-10-01 12:18 | ED_ITS ---
HPI - Weakness General Chief complaint: Weakness Stated complaint: abnormal labs, weakness Time Seen by Provider: 10/01/20 12:17 Source: patient Mode of arrival: ambulatory History of Present Illness HPI Narrative: 74 y/o female with history of COPD on 3L NC, active smoker, vertigo, anxiety, depression, afib on Eliquis who presents from home with anemia and generalized weakness. She states about 1 week ago she had blood work done by here PCP and she was called today and told that her counts were low. She was admitted here in August, was found to be anemic with H/H 8.3/23.5 and was given 1 unit PRBC with improvement to 11.2/33.1 Guiaic stool was negative, she was continued on Coumadin on discharge. She was changed to Elqiuis a few days ago per her report because the INR monitoring was too much for me. She denies melena, BRBPR, hematuria. She has not had a BM in 2-3 days. She also reports a fall in the bathroom about 1 week ago as well. She states she fell onto her left side when she stood up. She denies dizziness, lightheadedness at the time and does not recall why she fell. She denies hitting her head or losing consciousness. She reports left sided rib pain since the fall. No abdominal pain, no extremity pain, no headaches. She has had a significant decrease in appetite per family. Related Data Home Medications Medication Instructions Recorded Confirmed Combivent Respimat 1 puff INHALATION BID 08/13/20 08/13/20 albuterol sulfate 1 inh INHALATION Q4-6H PRN 08/13/20 08/13/20 buspirone 5 mg PO TID 08/13/20 08/13/20 [id number] 1 puff INHALATION Q4-6H PRN 08/13/20 08/13/20 ipratropium-albuterol 3 ml INHALATION Q6H PRN 08/13/20 08/13/20 meclizine 12.5 mg PO TID PRN 08/13/20 08/13/20 metoprolol tartrate 12.5 mg PO BID 08/13/20 08/13/20 oxycodone-acetaminophen 1 tab PO Q6H PRN 08/13/20 08/13/20 Previous Rx's Medication Instructions Recorded doxycycline hyclate 100 mg PO BID #10 cap 08/16/20 ferrous sulfate 325 mg PO BID #60 tab 08/16/20 lorazepam 1 mg PO BEDTIME PRN 10 Days tab 08/16/20 omeprazole 20 mg PO DAILY #30 cap 08/16/20 prednisone 40 mg PO DAILY #10 tab 08/16/20 Allergies Allergy/AdvReac Type Severity Reaction Status Date / Time No Known Allergies Allergy Unverified 07/30/20 14:53 [No Known Allergies*] Review of Systems Review of Systems: Constitutional: No Fever, + Chills ENT/Mouth: No sore throat, No Rhinorrhea, No Swallowing Difficulty Eyes: No Eye Pain, No Swelling, No Redness Cardiovascular: + Chest Pain, No SOB, No Orthopnea, No Edema Respiratory: + Cough, + Sputum, No Wheezing, No dyspnea Gastrointestinal: No Nausea, No Vomiting, No Diarrhea, No abdominal Pain, No Hematochezia, No Melena Genitourinary: No Dysuria, No Urinary Frequency, No Hematuria Musculoskeletal: No joint pain, No Myalgias Skin: No Skin Lesions, No rash Neuro: + Weakness, No Numbness, No Dizziness, No Headache Psych: No Anxiety/Panic, No Depression Heme/Lymph: + Bruising, No Lymphadenopathy Endocrine: No Polyuria, No Polydipsia PMFSH Past Medical History Attestation statement: The following information was validated with the patient. Medical History (Updated 10/01/20 @ 14:55 by GUS Brooks) Atrial fibrillation Chronic respiratory failure with hypoxia COPD (chronic obstructive pulmonary disease) Normocytic anemia Vertigo Social History Social History Household Members: Children Housing: House Alcohol intake: never Smoking Status: Current every day smoker Tobacco Type: Cigarette Second Hand Smoke Exposure: No Use of substances other than those prescribed or required for medical reasons: No Advance Directives: No Advance Directives Information Provided: Yes service: No Current occupational status: retired Physical Exam Vital Signs: Vital Signs: Last Vital Signs Temp 98.4 F 10/01/20 12:16 Pulse 105 H 10/01/20 12:16 Resp 18 10/01/20 12:16 BP 97/37 L 10/01/20 12:16 Pulse Ox 100 10/01/20 12:16 Body Mass Index 12.8 Appearance: Alert. Oriented X3. No acute distress. Cachectic, frail elderly female. Eyes: Pupils equal, round and reactive to light. ENT: Pharynx normal. Neck: Normal inspection. Neck supple. CVS: tachycardic, irregularly irregular. Pulses normal. Respiratory: No respiratory distress. Breath sounds coarse throughout. Abdomen: Softly distended and nontender. decreased +BS x4. Rectal exam: palpable stool ball deep in rectal vault, soft, dark brown in color. Skin: Skin warm and dry. Normal skin color. Normal skin turgor. No rashes. Extremities: No lower extremity edema. thin, warm. small scattered ecchymotic areas on bilateral upper extremitites Neuro: Oriented X 3. Generalized weakenss. No sensory deficit. Course Course Course Narrative: 74 y/o female with COPD on oxygen, afib on eliquis presenting with anemia and generalized weakness, s/p fall 1 week ago. Stool is dark brown, possible occult GI bleed however concern for possible RP bleed given recent trauma. Will panscan to evaluate for this as well as rib fractures and ICH. Slightly tachycardic on arrival with BP 90/50's, AAO x3. Will gently hydrate. Type and screen ordered along with basic blood work. Anticipate admission. Reevaluation(s) Reevaluation #1: CT scans negative for RP bleed or traumatic injury from fall. Hemoglobin 6.8. No signs of active bleeding. 1 unit PRBC ordered for now. Will admit for symptomatic anemia. Reevaluation #2: Spoke with Hospitalist who accepts. MDM - Weakness Differential Diagnosis Differential diagnosis: Likely UTI, anemia and dehydration Lab Data Attestation: I reviewed the patient's lab results. Result diagrams: 10/01/20 12:40 10/01/20 12:40 Labs: Lab Results 10/01/20 10/01/20 10/01/20 Range/Units 12:40 12:40 12:41 WBC 8.7 (4.8-10.8) X10*3/uL RBC 2.02 L D (4.20-5.50) X10*6/uL Hgb 6.8 L* D (12.0-16.0) g/dl Hct 19.7 L* D (37-47) % MCV 97.5 (80-98) fL MCH 33.7 H (27.0-33.0) pg MCHC 34.5 (31.0-35.0) g/dl RDW 18.2 H (11.0-16.0) % Plt Count 239 (160-400) X10*3/uL MPV 10.6 (9.4-12.3) fL Immature Gran % (Auto) 1.0 H (0.0-0.4) % Neut % (Auto) 75.9 H (45-73) % Lymph % (Auto) 7.9 L (20-40) % [place] % (Auto) 10.1 (2-11) % Eos % (Auto) 4.6 H (0-4) % Baso % (Auto) 0.5 (0-2) % Lymph # (Auto) 0.7 L (1.2-4.9) X10*3/uL [place] # (Auto) 0.9 (0.1-1.2) X10*3/uL Eos # (Auto) 0.4 (0.0-0.4) X10*3/uL Baso # (Auto) 0.0 (0.0-0.2) X10*3/uL Abs Immat Gran (auto) 0.09 H (0.00-0.03) X10*3/uL Absolute Neuts (auto) 6.6 (2.0-8.3) X10*3/uL Absolute Nucleated RBC 0.000 (0.0-0.012) X10*3/uL Nucleated RBC % (auto) 0.0 (0.0-0.2) /100WBC Smear Tech's Comments VERIFIED PT 13.7 H (10.8-13.0) SEC INR 1.2 H (0.9-1.1) APTT 35.9 (24.1-38.0) SEC Sodium 143 (135-145) mmol/L Potassium 3.8 (3.3-5.1) mmol/l Chloride 98 (96-108) mmol/L Carbon Dioxide 38 H (22-29) mmol/L Anion Gap 11 L (12-20) BUN 20 H (9-16) mg/dL Creatinine 0.82 (0.5-1.4) mg/dL Estim Creat Clear Calc 29.7 Estimated GFR > 60 Random Glucose 93 (60-115) mg/dL Calcium 8.6 (8.4-10.2) mg/dL Magnesium 1.9 (1.6-2.6) mg/dL Total Bilirubin 1.5 H (0.0-1.0) mg/dL Direct Bilirubin 0.6 H (0.0-0.5) mg/dL AST 12 (5-31) U/L ALT 6 (0-31) U/L Alkaline Phosphatase 60 (39-117) U/L Troponin I High Sens (<3.5-17.0) ng/L Total Protein 6.0 L (6.5-8.0) g/dL Albumin 3.7 (3.5-5.0) g/dL Stool Occult Blood (NEG) COVID-19 (NASEEM) (Negative) COVID-19 Clin Com Blood Type Antibody Screen Crossmatch 10/01/20 10/01/20 10/01/20 Range/Units 12:41 12:41 12:45 WBC (4.8-10.8) X10*3/uL RBC (4.20-5.50) X10*6/uL Hgb (12.0-16.0) g/dl Hct (37-47) % MCV (80-98) fL MCH (27.0-33.0) pg MCHC (31.0-35.0) g/dl RDW (11.0-16.0) % Plt Count (160-400) X10*3/uL MPV (9.4-12.3) fL Immature Gran % (Auto) (0.0-0.4) % Neut % (Auto) (45-73) % Lymph % (Auto) (20-40) % [place] % (Auto) (2-11) % Eos % (Auto) (0-4) % Baso % (Auto) (0-2) % Lymph # (Auto) (1.2-4.9) X10*3/uL [place] # (Auto) (0.1-1.2) X10*3/uL Eos # (Auto) (0.0-0.4) X10*3/uL Baso # (Auto) (0.0-0.2) X10*3/uL Abs Immat Gran (auto) (0.00-0.03) X10*3/uL Absolute Neuts (auto) (2.0-8.3) X10*3/uL Absolute Nucleated RBC (0.0-0.012) X10*3/uL Nucleated RBC % (auto) (0.0-0.2) /100WBC Smear Tech's Comments PT (10.8-13.0) SEC INR (0.9-1.1) APTT (24.1-38.0) SEC Sodium (135-145) mmol/L Potassium (3.3-5.1) mmol/l Chloride (96-108) mmol/L Carbon Dioxide (22-29) mmol/L Anion Gap (12-20) BUN (9-16) mg/dL Creatinine (0.5-1.4) mg/dL Estim Creat Clear Calc Estimated GFR Random Glucose (60-115) mg/dL Calcium (8.4-10.2) mg/dL Magnesium (1.6-2.6) mg/dL Total Bilirubin (0.0-1.0) mg/dL Direct Bilirubin (0.0-0.5) mg/dL AST (5-31) U/L ALT (0-31) U/L Alkaline Phosphatase (39-117) U/L Troponin I High Sens 8.2 (<3.5-17.0) ng/L Total Protein (6.5-8.0) g/dL Albumin (3.5-5.0) g/dL Stool Occult Blood NEG (NEG) COVID-19 (NASEEM) Negative (Negative) COVID-19 Clin Com See Note Blood Type Antibody Screen Crossmatch 10/01/20 Range/Units 13:42 WBC (4.8-10.8) X10*3/uL RBC (4.20-5.50) X10*6/uL Hgb (12.0-16.0) g/dl Hct (37-47) % MCV (80-98) fL MCH (27.0-33.0) pg MCHC (31.0-35.0) g/dl RDW (11.0-16.0) % Plt Count (160-400) X10*3/uL MPV (9.4-12.3) fL Immature Gran % (Auto) (0.0-0.4) % Neut % (Auto) (45-73) % Lymph % (Auto) (20-40) % [place] % (Auto) (2-11) % Eos % (Auto) (0-4) % Baso % (Auto) (0-2) % Lymph # (Auto) (1.2-4.9) X10*3/uL [place] # (Auto) (0.1-1.2) X10*3/uL Eos # (Auto) (0.0-0.4) X10*3/uL Baso # (Auto) (0.0-0.2) X10*3/uL Abs Immat Gran (auto) (0.00-0.03) X10*3/uL Absolute Neuts (auto) (2.0-8.3) X10*3/uL Absolute Nucleated RBC (0.0-0.012) X10*3/uL Nucleated RBC % (auto) (0.0-0.2) /100WBC Smear Tech's Comments PT (10.8-13.0) SEC INR (0.9-1.1) APTT (24.1-38.0) SEC Sodium (135-145) mmol/L Potassium (3.3-5.1) mmol/l Chloride (96-108) mmol/L Carbon Dioxide (22-29) mmol/L Anion Gap (12-20) BUN (9-16) mg/dL Creatinine (0.5-1.4) mg/dL Estim Creat Clear Calc Estimated GFR Random Glucose (60-115) mg/dL Calcium (8.4-10.2) mg/dL Magnesium (1.6-2.6) mg/dL Total Bilirubin (0.0-1.0) mg/dL Direct Bilirubin (0.0-0.5) mg/dL AST (5-31) U/L ALT (0-31) U/L Alkaline Phosphatase (39-117) U/L Troponin I High Sens (<3.5-17.0) ng/L Total Protein (6.5-8.0) g/dL Albumin (3.5-5.0) g/dL Stool Occult Blood (NEG) COVID-19 (NASEEM) (Negative) COVID-19 Clin Com Blood Type O Positive Antibody Screen NEGATIVE Crossmatch See Detail ECG Data Attestation: I personally reviewed and interpreted this ECG as follows: Interpretation: sinus rhythm with marked sinus arrythmia, possible multifocal atrial tachycardia, HR 99 bpm, normal UT interval, normal QTc Critical Care Time Critical Care Time Critical Care Time: Yes Total Critical Care Time: 35 Attestation: I attest to Critical Care time taking care of this patient. Discharge Plan Discharge Clinical Impression: Symptomatic anemia Patient Disposition: Admitted As Inpatient
--- NOTE | 2020-10-01 12:20 | ECG_ITS ---
Test Reason : WEAKNESS Blood Pressure : / mmHG Vent. Rate : 099 BPM Atrial Rate : 099 BPM P-R Int : 156 ms QRS Dur : 082 ms QT Int : 320 ms P-R-T Axes : 055 071 066 degrees QTc Int : 410 ms Sinus rhythm with marked sinus arrhythmia with occasional Premature atrial complexes Moderate voltage criteria for LVH, may be normal variant Cannot rule out Septal infarct (cited on or before 17-JUN-2020) Abnormal ECG When compared with ECG of 12-AUG-2020 17:04, No significant change was found Referred By: Alyson Canchola Electronically Signed By:HUMPHREY ALBRIGHT MD
--- NOTE | 2020-10-01 12:33 | CT_ITS ---
EXAMINATION: CT CHEST WITHOUT CONTRAST CT ABDOMEN AND PELVIS WITHOUT CONTRAST CLINICAL INFORMATION: Fall with left-sided rib pain. Acute anemia. COMPARISON: 06/24/2020 and TECHNIQUE: Multidetector volumetric imaging was performed through the chest, abdomen and pelvis without contrast. Sagittal and coronal reformatted images were obtained on the technologist's workstation. Axial MIP volume rendering provided. This CT examination was performed using dose optimization techniques as appropriate, variously including the following: *Automated exposure control *Adjustment of mA and/or kV according to patient size (this includes techniques or standardized protocols for targeted exams where dose is matched to indication/reason for exam; i.e. extremities or head) *Use of iterative reconstruction technique DLP: 374 mGy-cm. FINDINGS: CHEST: Lungs: Secretions noted in the trachea. The central airways are otherwise patent. Bronchial filling defects are noted in the left lower lobe. There is severe centrilobular and paraseptal emphysema, greatest in the upper lobes. Patchy left lower lobe consolidation. This is mostly new from prior. Minimal right basilar patchy opacities as well dependently. Biapical scarring is again noted. No pneumothorax or pleural effusion. Mediastinum: The heart is of normal size. There is no pericardial effusion. Coronary artery calcifications are present. No hilar or mediastinal lymphadenopathy. Chest Wall/Axilla: No lymphadenopathy. No chest wall mass. ABDOMEN/PELVIS: Liver, Gallbladder, Biliary Tree: The liver is normal in size, shape, and attenuation. There is a 1 cm cyst in the right lobe of the liver. No intrahepatic biliary ductal dilatation is present. The gallbladder is not seen. Dilated common bile duct measuring 0.9 cm. No ductal filling defect. Pancreas: Lack of intra-abdominal fat limits evaluation. No gross pancreatic abnormality. Spleen: Unremarkable. Adrenal Glands: Unremarkable. Kidneys and Ureters: The kidneys are normal in size, shape, and attenuation. No hydronephrosis, hydroureter or calculi seen. No perinephric stranding. Bladder: Unremarkable. Gastrointestinal Tract: Lack of intra-abdominal fat and lack of IV contrast limits evaluation. The stomach is grossly unremarkable. Normal caliber small bowel. There is no obstruction. Stool distends the rectum. Scattered diverticulosis without diverticulitis. No colonic wall thickening. No free air. No significant free fluid. There is stranding in the presacral fat. Abdominal Wall: There is no significant hernia seen. Minimal subcutaneous fat is present. Mild atrophy of the paraspinal musculature 11/20/2016. No retroperitoneal hematoma. Lymphovascular Structures: Lymph nodes: Normal. Vascular: Normal caliber aorta with moderate atherosclerotic calcification. There is significant calcification resulting in stenosis at the upper abdominal aorta. This appears to have progressed since the 2017 study. Pelvic Viscera: Uterus is not seen. No adnexal mass. OSSEOUS STRUCTURES: No acute fracture is seen. The visualized ribs are intact. Scoliotic curvature of the spine. Multilevel thoracic vertebral body mild compression deformities are noted. This includes T5, T6, T7, T8, and T12. Compression at T5, T7, and T12 appear new from 11/20/2016, but are unchanged from 06/24/2020. There is kyphoplasty cement in place at L3. The pelvis is intact. Osteopenia. Mild degenerative changes at the hips. CT/CT abdomen pelvis wo con IMPRESSION: No acute traumatic finding of the chest, abdomen, or pelvis. No acute rib fracture. There are multiple thoracic vertebral body compression deformities, unchanged from prior. Moderate atherosclerotic calcifications throughout the aorta. This includes prominent calcification within the lumen of the upper abdominal aorta causing progressive stenosis from prior imaging. Bronchial filling defects within the left lower lobe with increased consolidation. This may represent pneumonia or aspiration. Severe emphysema. No retroperitoneal hematoma.
--- NOTE | 2020-10-01 12:33 | CT_ITS ---
EXAMINATION: CT HEAD WITHOUT CONTRAST CLINICAL INFORMATION: Fall, trauma. On Eliquis. COMPARISON: Report MRI brain 06/19/2006. TECHNIQUE: Contiguous axial imaging was performed from the skull base to vertex without intravenous administration of contrast. Additional 2-D coronal and sagittal reformatted images are generated on the CT workstation and uploaded to PACS. This CT examination was performed using dose optimization techniques as appropriate, variously including the following: *Automated exposure control *Adjustment of mA and/or kV according to patient size (this includes techniques or standardized protocols for targeted exams where dose is matched to indication/reason for exam; i.e. extremities or head) *Use of iterative reconstruction technique DLP: 626 mGy-cm FINDINGS: There is no intracranial hemorrhage, hematoma, or extra-axial fluid collection. The ventricles are normal in size. There is no hydrocephalus, edema, or mass effect. The avila-white matter differentiation appears symmetric. There is no visible acute territorial infarct or mass lesion. The calvarium appears intact. There is no pneumocephalus or orbital emphysema. The visualized sinuses and middle ears and mastoid air cells show no significant mucosal thickening. There are no air-fluid levels. CT/CT head/brain wo con IMPRESSION: No acute intracranial abnormality.
[2020-10-01 12:53] LABS: OBS Int Ctl Valid YES; OBS1 NEG (NEG)
[2020-10-01 12:55] LABS: Basophils Percent Auto 0.5 % (0-2); Eosinophils Absolute Auto 0.4 X10*3/uL (0.0-0.4); Eosinophils Percent Auto 4.6 % (0-4); Imm Gran Abs Auto 0.09 X10*3/uL (0.00-0.03); Lymphocytes Absolute Auto 0.7 X10*3/uL (1.2-4.9); Lymphocytes Percent Auto 7.9 % (20-40); MANUAL DIFF FLAG SCAN; Mean Corpuscular HGB Conc 34.5 g/dl (31.0-35.0); Mean Corpuscular Hemoglobin 33.7 pg (27.0-33.0); Mean Corpuscular Volume 97.5 fL (80-98); Mean Platelet Volume 10.6 fL (9.4-12.3); Monocytes Absolute Auto 0.9 X10*3/uL (0.1-1.2); Monocytes Percent Auto 10.1 % (2-11); Neutrophils Absolute Auto 6.6 X10*3/uL (2.0-8.3); Neutrophils Percent Auto 75.9 % (45-73); Platelet Count 239 X10*3/uL (160-400); Red Blood Count 2.02 X10*6/uL (4.20-5.50); Red Cell Distribution Width 18.2 % (11.0-16.0); SCAN SMEAR FLAG 1; White Blood Count 8.7 X10*3/uL (4.8-10.8)
[2020-10-01 12:57] LABS: INTERNATIONAL NORM RATIO 1.2 (0.9-1.1); Prothrombin Time 13.7 SEC (10.8-13.0)
[2020-10-01 13:00] LABS: Partial Thromboplastin Time 35.9 SEC (24.1-38.0)
[2020-10-01 13:08] LABS: COVID-19 Test Negative (Negative)
[2020-10-01 13:09] LABS: Hematocrit 19.7 % (37-47); Hemoglobin 6.8 g/dl (12.0-16.0)
[2020-10-01 13:16] LABS: Alanine Aminotransferase 6 U/L (0-31); Albumin Level 3.7 g/dL (3.5-5.0); Alkaline Phosphatase 60 U/L (39-117); Anion Gap 11 (12-20); Aspartate Amino Transferase 12 U/L (5-31); Bilirubin Direct 0.6 mg/dL (0.0-0.5); Bilirubin Total 1.5 mg/dL (0.0-1.0); Blood Urea Nitrogen 20 mg/dL (9-16); Calcium 8.6 mg/dL (8.4-10.2); Carbon Dioxide 38 mmol/L (22-29); Chloride 98 mmol/L (96-108); Creatinine Clr Calc Pharmacy 29.7; Estimated Glomerular Filt Rate > 60; Glucose Random 93 mg/dL (60-115); Magnesium 1.9 mg/dL (1.6-2.6); Potassium 3.8 mmol/l (3.3-5.1); Sodium 143 mmol/L (135-145)
[2020-10-01 13:20] LABS: Troponin-I High Sensitivity 8.2 ng/L (<3.5-17.0)
[2020-10-01 13:35] LABS: SLIDE REVIEW VERIFIED
--- NOTE | 2020-10-01 13:47 | PC.NURSE ---
consent obtained for blood admin
--- NOTE | 2020-10-01 16:18 | P.HPHOSP_ITS ---
History of Present Illness Date of Service: 10/01/20 Chief Complaint: weakness, anemia this is a 74-year-old female who was sent to the emergency department today due to abnormal labs. She was recently changed from Coumadin to Eliquis for her atrial fibrillation. She had routine labs checked as an outpatient and was noted to be anemic. She reports generalized weakness. She denies any chest pain, shortness of breath, dizziness. She denies any dark or bloody stools. H/ H in the ED was 6.8/19.7 which is down from 11.2/33.1 on August 13. 1 unit of blood was ordered to the emergency department. Of note patient was admitted in August for anemia and received blood transfusion. But she was discharged home the plan was for her to follow up with GI. She has not yet done so. of note she did fall this past weekend and therefore she had a CT scan of her chest and abdomen which did not show any retroperitoneal hematoma or other injury. Her brain CT was also negative for bleed. She denies ever having a colonoscopy in the past. Review of Systems Review of Systems: generalized weakness Yes all other systems are reviewed and are negative Constitutional: Constitutional: Denies chills and Denies fever(s) Cardiovascular: Cardiovascular: Denies chest pain Respiratory: Respiratory: Denies cough Gastrointestinal: Gastrointestinal: Denies abdominal pain [facility] Medical History (Updated 10/01/20 @ 16:23 by GUS Marks) Atrial fibrillation Chronic respiratory failure with hypoxia COPD (chronic obstructive pulmonary disease) Depression GERD (gastroesophageal reflux disease) Normocytic anemia Vertigo Pertinent family history: no h/o colon ca Family history: reviewed and not pertinent Social History (Updated 10/01/20 @ 16:24 by GUS Marks) Household Members: Children Housing: House Alcohol intake: never Smoking Status: Current every day smoker Tobacco Type: Cigarette Packs Per Day: 1 Second Hand Smoke Exposure: No Use of substances other than those prescribed or required for medical reasons: No Advance Directives: No Advance Directives Information Provided: Yes service: No Current occupational status: retired Meds Allergies Allergy/AdvReac Type Severity Reaction Status Date / Time No Known Allergies Allergy Unverified 07/30/20 14:53 [No Known Allergies*] Home Medications Medication Instructions Recorded Confirmed Type Combivent Respimat 1 puff INHALATION BID 08/13/20 10/01/20 History albuterol sulfate 1 inh INHALATION Q4-6H PRN 08/13/20 10/01/20 History buspirone 5 mg PO TID 08/13/20 10/01/20 History meclizine 12.5 mg PO TID PRN 08/13/20 10/01/20 History metoprolol tartrate 12.5 mg PO BID 08/13/20 10/01/20 History oxycodone-acetaminophen 1 tab PO Q6H PRN 08/13/20 10/01/20 History apixaban [Eliquis] 1 tab PO BID 10/01/20 10/01/20 History riokaiorcsi-kmuztecbq-fcmniphw 1 inh INHALATION DAILY 10/01/20 10/01/20 History [Trelegy Ellipta] lorazepam 1 tab PO Q8H PRN 10/01/20 10/01/20 History zolpidem 1 tab PO BEDTIME PRN 10/01/20 10/01/20 History Physical Exam Vital Signs and Narrative: Vital Signs: Last Vital Signs Temp 98.4 F 10/01/20 12:16 Pulse 105 H 10/01/20 12:16 Resp 18 10/01/20 12:16 BP 97/37 L 10/01/20 12:16 Pulse Ox 100 10/01/20 12:16 Body Mass Index 12.8 Const: Nutritional Appearance: cachectic Orientation/consciousness: patient oriented x3 HENMT: Head: Yes normocephalic and Yes atraumatic Eyes: Sclerae: sclerae normal Chest: Chest palpation & inspection: normal inspection of the chest Resp: Effort & Inspection: normal respiratory effort and no respiratory distress Auscultation: clear to auscultation bilaterally Cardio: Rate: regular rate Rhythm: regular rhythm GI: Palpation (GI): Soft to palpation and nontender Skin: General skin exam: no rashes or lesions noted Neuro: General: patient oriented x3 Cranial nerves: Yes CN's II-XII intact bilaterally and Yes Bilaterally intact EOM present Extrem: General: Yes normal to inspection Results Labs CBC and Chem 7: 10/01/20 12:40 10/01/20 12:40 Labs: Laboratory Results - last 24 hr 10/01/20 10/01/20 10/01/20 12:40 12:40 12:41 MCV 97.5 MCH 33.7 H MCHC 34.5 RDW 18.2 H Plt Count 239 MPV 10.6 Immature Gran % (Auto) 1.0 H Neut % (Auto) 75.9 H Lymph % (Auto) 7.9 L [place] % (Auto) 10.1 Eos % (Auto) 4.6 H Baso % (Auto) 0.5 Lymph # (Auto) 0.7 L [place] # (Auto) 0.9 Eos # (Auto) 0.4 Baso # (Auto) 0.0 Abs Immat Gran (auto) 0.09 H Absolute Neuts (auto) 6.6 Absolute Nucleated RBC 0.000 Nucleated RBC % (auto) 0.0 Smear Tech's Comments VERIFIED PT 13.7 H INR 1.2 H APTT 35.9 Anion Gap 11 L Estim Creat Clear Calc 29.7 Estimated GFR > 60 Random Glucose 93 Calcium 8.6 Magnesium 1.9 Total Bilirubin 1.5 H Direct Bilirubin 0.6 H AST 12 ALT 6 Alkaline Phosphatase 60 Troponin I High Sens Total Protein 6.0 L Albumin 3.7 Stool Occult Blood COVID-19 (NASEEM) COVID-Welocalize Blood Type Antibody Screen Crossmatch 10/01/20 10/01/20 10/01/20 12:41 12:41 12:45 MCV MCH MCHC RDW Plt Count MPV Immature Gran % (Auto) Neut % (Auto) Lymph % (Auto) [place] % (Auto) Eos % (Auto) Baso % (Auto) Lymph # (Auto) [place] # (Auto) Eos # (Auto) Baso # (Auto) Abs Immat Gran (auto) Absolute Neuts (auto) Absolute Nucleated RBC Nucleated RBC % (auto) Smear Tech's Comments PT INR APTT Anion Gap Estim Creat Clear Calc Estimated GFR Random Glucose Calcium Magnesium Total Bilirubin Direct Bilirubin AST ALT Alkaline Phosphatase Troponin I High Sens 8.2 Total Protein Albumin Stool Occult Blood NEG COVID-19 (NASEEM) Negative COVID-Welocalize See Note Blood Type Antibody Screen Crossmatch 10/01/20 13:42 MCV MCH MCHC RDW Plt Count MPV Immature Gran % (Auto) Neut % (Auto) Lymph % (Auto) [place] % (Auto) Eos % (Auto) Baso % (Auto) Lymph # (Auto) [place] # (Auto) Eos # (Auto) Baso # (Auto) Abs Immat Gran (auto) Absolute Neuts (auto) Absolute Nucleated RBC Nucleated RBC % (auto) Smear Tech's Comments PT INR APTT Anion Gap Estim Creat Clear Calc Estimated GFR Random Glucose Calcium Magnesium Total Bilirubin Direct Bilirubin AST ALT Alkaline Phosphatase Troponin I High Sens Total Protein Albumin Stool Occult Blood COVID-19 (NASEEM) COVID-19 Clin Com Blood Type O Positive Antibody Screen NEGATIVE Crossmatch See Detail Imaging Radiologist's Impressions: Impressions Abdomen/Pelvis CT 10/01/20 12:33 IMPRESSION: No acute traumatic finding of the chest, abdomen, or pelvis. No acute rib fracture. There are multiple thoracic vertebral body compression deformities, unchanged from prior. Moderate atherosclerotic calcifications throughout the aorta. This includes prominent calcification within the lumen of the upper abdominal aorta causing progressive stenosis from prior imaging. Bronchial filling defects within the left lower lobe with increased consolidation. This may represent pneumonia or aspiration. Severe emphysema. No retroperitoneal hematoma. Chest CT 10/01/20 12:33 IMPRESSION: No acute traumatic finding of the chest, abdomen, or pelvis. No acute rib fracture. There are multiple thoracic vertebral body compression deformities, unchanged from prior. Moderate atherosclerotic calcifications throughout the aorta. This includes prominent calcification within the lumen of the upper abdominal aorta causing progressive stenosis from prior imaging. Bronchial filling defects within the left lower lobe with increased consolidation. This may represent pneumonia or aspiration. Severe emphysema. No retroperitoneal hematoma. Head CT 10/01/20 12:33 IMPRESSION: No acute intracranial abnormality. Assessment and Plan (1) Normocytic anemia: Status: Acute This is a 74-year-old female with a history of chronic respiratory failure on 3 L of home oxygen who presents to the emergency department after being found to be anemic as an outpatient. Normocytic anemia Heme neg, denies rectal bleeding blood transfusion, 1 unit ordered follow CBC iron studies, retic count continue iron supplementation atrial fibrillation Continue metoprolol continue anticoagulation with Eliquis for now GERD continue omeprazole chronic vertigo continue meclizine mood Continue buspirone, Ativan COPD no acute exacerbation continue home inhalers sleep patient was recently started on Ambien, she has had multiple falls since starting will hold DVT prophylaxis -Eliquis Code status-DNR /DNI This case was discussed with Dr. Corrigan
--- NOTE | 2020-10-01 17:02 | PM.EVENT ---
Event Note Date of Service: 10/01/20 Event Note: Admission note the patient was seen and evaluated with GUS Pittman. I agree with her note, assessment and plan with the following. In summary, a 74 years old lady with PMH of AFib on Eliquis, COPD on O2, depression, GERD among other who presents to the hospital with increased lethargy and weakness. She had routine labs check as outpatient which was concerning for drop in her hemoglobin to 6.8 from baseline of around 10-11. No source of bleeding identified according to the patient. She never had colonoscopy done before. She did receive blood transfusion on prior admissions. Occult blood came back negative. Admitted for further evaluation and treatment. Symptomatic anemia Secondary to bleeding, bone marrow disorder, Transfuse a unit of blood to check iron studies, retic count continue iron supplement To repeat occult stool in the morning To get Hematology evaluation Rest of evaluations by PA note.
--- NOTE | 2020-10-01 17:36 | PC.NURSE ---
attempt to give report to s3
[2020-10-01 18:20] LABS: Iron 81 mcg/dL (30-160); Percent Iron Saturation 38 % (15-50); Total Iron Binding Capacity 214 mcg/dL (228-428); Unsaturated Iron Binding 133 ug/dL
[2020-10-01 18:31] LABS: Immature Retic Fraction 13.2 % (3.0-15.9); Reticulocyte Percent 6.4 % (0.5-1.8); Reticulocytes Absolute 0.128 X10*6/uL (0.026-0.095)
[2020-10-01] MEDS: oxyCODONE HCl Immed Release 5 MG TABLET 10 MG PO (18:34)
[2020-10-01] MEDS: 0.9 % Sodium Chloride Flush 3 ML SYRINGE IVFLUSH ×2 (18:36→21:10)
[2020-10-01 18:41] LABS: Ferritin 169 ng/mL (10-250)
[2020-10-01] MEDS: Ferrous Sulfate 324 MG TABLET.DR PO (21:09)
[2020-10-01] MEDS: Apixaban 2.5 MG TABLET PO (21:09)
[2020-10-01] MEDS: busPIRone HCl 5 MG TABLET PO (21:09)
[2020-10-01] MEDS: Albuterol/Iprat 2.5/0.5MG 3 ML AMPUL.NEB 1 ML INHALE (23:18)
[2020-10-02] VITALS (7 sets, daily range): BP systolic 94–99; BP diastolic 43–48; PULSE 70–94; RESP 16–18; TEMP 36.5–37.2; O2SAT 90–100; BMI 12.8
[2020-10-02] MEDS: oxyCODONE HCl Immed Release 5 MG TABLET 10 MG PO ×3 (01:21→13:44)
[2020-10-02 03:16] LABS: Glucose Urine UA NEG (NEG); Leukocyte Esterase Urine NEG (NEG); Nitrite Urine NEG (NEG); Urine Blood NEG (NEG); Urine Ketones NEG (NEG); Urine Protein TRACE MG/DL (NEG-TRACE)
[2020-10-02 03:45] LABS: Appearance Urine CLEAR; Color Urine YELLOW
[2020-10-02] MEDS: Omeprazole 20 MG CAPSULE.DR PO (05:50)
[2020-10-02] MEDS: Acetaminophen 325 MG TABLET 650 MG PO (05:52)
[2020-10-02 06:13] LABS: Basophils Percent Auto 0.3 % (0-2); Eosinophils Absolute Auto 0.3 X10*3/uL (0.0-0.4); Eosinophils Percent Auto 3.5 % (0-4); Hematocrit 23.7 % (37-47); Hemoglobin 8.2 g/dl (12.0-16.0); Imm Gran Abs Auto 0.07 X10*3/uL (0.00-0.03); Imm Gran Pct Auto 0.8 % (0.0-0.4); Lymphocytes Absolute Auto 0.5 X10*3/uL (1.2-4.9); Lymphocytes Percent Auto 5.9 % (20-40); MANUAL DIFF FLAG SCAN; Mean Corpuscular HGB Conc 34.6 g/dl (31.0-35.0); Mean Corpuscular Hemoglobin 33.7 pg (27.0-33.0); Mean Corpuscular Volume 97.5 fL (80-98); Mean Platelet Volume 10.9 fL (9.4-12.3); Monocytes Absolute Auto 0.7 X10*3/uL (0.1-1.2); Monocytes Percent Auto 7.7 % (2-11); Neutrophils Absolute Auto 7.3 X10*3/uL (2.0-8.3); Neutrophils Percent Auto 81.8 % (45-73); Platelet Count 202 X10*3/uL (160-400); Red Blood Count 2.43 X10*6/uL (4.20-5.50); Red Cell Distribution Width 17.2 % (11.0-16.0); SCAN SMEAR FLAG 1
[2020-10-02] MEDS: Albuterol/Iprat 2.5/0.5MG 3 ML AMPUL.NEB INHALE ×2 (06:25→11:16)
[2020-10-02 06:47] LABS: Anion Gap 9 (12-20); Blood Urea Nitrogen 16 mg/dL (9-16); Carbon Dioxide 39 mmol/L (22-29); Chloride 100 mmol/L (96-108); Creatinine Clr Calc Pharmacy 35.3; Estimated Glomerular Filt Rate > 60; Glucose Random 84 mg/dL (60-115); Potassium 3.8 mmol/l (3.3-5.1); Sodium 144 mmol/L (135-145)
[2020-10-02 07:22] LABS: SLIDE REVIEW VERIFIED
[2020-10-02] MEDS: Ferrous Sulfate 324 MG TABLET.DR PO (07:32)
[2020-10-02] MEDS: busPIRone HCl 5 MG TABLET PO ×2 (07:32→13:44)
[2020-10-02] MEDS: Apixaban 2.5 MG TABLET PO (07:32)
[2020-10-02] MEDS: 0.9 % Sodium Chloride Flush 3 ML SYRINGE IVFLUSH (07:35)
[2020-10-02 08:06] LABS: Lactate Dehydrogenase 134 U/L (122-220)
--- NOTE | 2020-10-02 08:14 | P.CNHO_ITS ---
Subjective - Subjective Chief complaint: consult for anemia. Patient: new to practice Consult date: 10/02/20 Requesting Physician: Fabricio Palmer. Primary Care Provider: michelle. Medical Summary: DIAGNOSIS: ANEMIA. GI BLEEDING. ON WARFARIN. HPI - Consult Narrative Reason for consult: ANEMIA. Narrative: Obdulia Finney is a pleasant 74 year old lady who was sent to the emergency department yesterday due to abnormal labs. She was recently changed from Coumadin to Eliquis for her atrial fibrillation. She Tells me that she had not been sleeping well. Ambien was prescribed. She tells me, that did me in. She was confused. She mentions that she fell. She tells me she had left rib fractures. That hurts her. She had routine labs checked as an outpatient and was noted to be Anemic. She reports generalized weakness. She denies any chest pain, shortness of breath, dizziness. She denies abdominal pain nausea vomiting heartburn or indigestion. She denies any dark or bloody stools. H/ H in the ED was 6.8/19.7 which is down from 11.2/33.1 on August 13. One unit of blood was given in the ER, 1 unit on the floor. Of note patient was admitted in August for anemia and received blood transfusion. But she was discharged home the plan was for her to follow up with GI. She has not yet done so. She denies ever having a colonoscopy in the past. CBC from 10/01: WBC 8.7, HGB 6.8, HCT 19.7, MCV is 97.5, PLT 239. Retic 6.4, LDH 139. Iron studies: 81/214/38/169. PT 13.7, INR 1.2. PTT 35.9. Chest CT 10/01/20 12:33 IMPRESSION: No acute traumatic finding of the chest, abdomen, or pelvis. No acute rib fra cture. There are multiple thoracic vertebral body compression deformities, unchanged from prior. Moderate atherosclerotic calcifications throughout the aorta. This includes prominent calcification within the lumen of the upper abdominal aorta causing progressive stenosis from prior imaging. Bronchial filling defects within the left lower lobe with increased consolidation. This may represent pneumonia or aspiration. Severe emphysema. No retroperitoneal hematoma. Head CT 10/01/20 12:33 IMPRESSION: No acute intracranial abnormality. Review of Systems - Constitutional Reports anorexia, Reports fatigue, Reports lack of energy, Reports malaise, Reports weakness, Reports weight loss, Denies fever(s) - Eyes Denies blurry vision - ENT Reports system reviewed and no additional complaints, except as documented - Cardiovascular Reports lightheadedness, Reports shortness of breath, Denies chest pain at rest - Respiratory Denies chest congestion - Gastrointestinal Reports constipation, Denies abdominal pain, Denies change in bowel habits, Denies coffee ground vomit - Genitourinary Comments: decreased frequency of micturition - Musculoskeletal Reports joint pain Comments: right shoulder pain left chest pain from fall leading to rib fractures - Integumentary/Breasts Skin/Breast: Denies bleeding lesions - Neurologic Reports system reviewed and no additional complaints, except as documented Comments: leg weakness - Psychiatric Reports change in appetite, Denies anxiety - Endocrine Denies cold intolerance - Hematologic/Lymphatic Reports easy bleeding, Denies easy bruising - Allergic/Immunologic Denies GI upset with certain foods PMFSH Medical History: Medical History (Last Updated 10/01/20 @ 16:23 by GUS Marks) Atrial fibrillation Chronic respiratory failure with hypoxia COPD (chronic obstructive pulmonary disease) Depression GERD (gastroesophageal reflux disease) Normocytic anemia Vertigo Functional capacity: uses cane/walker Patient : No Family history: reviewed and not pertinent Smoking status: Current every day smoker Home Medications and Allergies Current Medications: Current Medications Generic Name Dose Route Start Last Admin Trade Name Freq PRN Reason Stop Dose Admin Acetaminophen 650 mg 10/01/20 18:00 10/02/20 05:52 Acetaminophen 325 Mg Tablet PO 650 mg Q6H PRN Administration Pain, Mild (Pain Scale 1-3) Albuterol Sulfate 1 puff 10/01/20 18:00 Albuterol Sulfate 90 Mcg 8 Gm Inhaler INHALE Q4H PRN Dyspnea Albuterol/Ipratropium 3 ml 10/02/20 06:00 10/02/20 06:25 Albuterol/Iprat 2.5/0.5mg 3 Ml Ampul.Neb INHALE 3 ml RQ6H MARCOS Administration Apixaban 2.5 mg 10/01/20 21:00 10/02/20 07:32 Apixaban 2.5 Mg Tablet PO 2.5 mg BID MARCOS Administration Buspirone HCl 5 mg 10/01/20 21:00 10/02/20 07:32 Buspirone Hcl 5 Mg Tablet PO 5 mg TID [facility] Administration Docusate Sodium 100 mg 10/01/20 18:00 Docusate Sodium 100 Mg Capsule PO DAILY PRN Constipation Ferrous Sulfate 324 mg 10/01/20 21:00 10/02/20 07:32 Ferrous Sulfate 324 Mg Tablet. PO 324 mg BID [facility] Administration Fluticasone/Vilanterol 1 puff 10/02/20 08:00 Fluticasone/Vilanterol 100/25 Blst.W.Dev INHALE RDAILY [facility] Lorazepam 0.5 mg 10/01/20 18:00 Lorazepam 0.5 Mg Tablet PO Q8H PRN anxiety Meclizine HCl 12.5 mg 10/01/20 18:00 Meclizine Hcl 12.5 Mg Tablet PO TID PRN Dizziness Metoprolol Tartrate 12.5 mg 10/01/20 21:00 10/02/20 07:32 Metoprolol Tartrate 25 Mg Tablet PO Not Given BID [facility] Protocol Omeprazole 20 mg 10/02/20 06:30 10/02/20 05:50 Omeprazole 20 Mg Capsule. PO 20 mg DAILY@0630 [facility] Administration Ondansetron HCl 4 mg 10/01/20 18:00 Ondansetron Hcl 4 Mg/2 Ml Vial IVPUSH Q8H PRN Nausea and Vomiting Oxycodone HCl 10 mg 10/01/20 18:22 10/02/20 07:31 Oxycodone Hcl Immed Release 5 Mg Tablet PO 10 mg Q6H PRN Administration Mild Pain (Scale Score 1-4) Sodium Chloride 3 ml 10/01/20 18:00 10/02/20 07:35 0.9 % Sodium Chloride Flush 3 Ml Syringe IVFLUSH 3 ml QSHIFT [facility] Administration Tiotropium [place] 1 puff 10/02/20 08:00 Tiotropium [place] 18 Mcg Cap.W.Dev INHALE RDAILY [facility] Home Medications Medication Instructions Recorded Confirmed Type Combivent Respimat 1 puff INHALATION BID 08/13/20 10/01/20 History albuterol sulfate 1 inh INHALATION Q4-6H PRN 08/13/20 10/01/20 History buspirone 5 mg PO TID 08/13/20 10/01/20 History meclizine 12.5 mg PO TID PRN 08/13/20 10/01/20 History metoprolol tartrate 12.5 mg PO BID 08/13/20 10/01/20 History oxycodone-acetaminophen 1 tab PO Q6H PRN 08/13/20 10/01/20 History Eliquis 1 tab PO BID 10/01/20 10/01/20 History Trelegy Ellipta 1 inh INHALATION DAILY 10/01/20 10/01/20 History lorazepam 1 tab PO Q8H PRN 10/01/20 10/01/20 History zolpidem 1 tab PO BEDTIME PRN 10/01/20 10/01/20 History Allergies Allergy/AdvReac Type Severity Reaction Status Date / Time No Known Allergies Allergy Unverified 07/30/20 14:53 [No Known Allergies*] Physical Exam Vital signs: Vital Signs Temp 97.8 F 10/02/20 07:22 Pulse 82 10/02/20 07:22 Resp 16 10/02/20 07:22 BP 94/44 L 10/02/20 07:22 Pulse Ox 100 10/02/20 07:22 Intake & Output 10/01/20 10/02/20 10/02/20 18:59 06:59 18:59 Intake Total 280 / 790 510 / 790 Output Total 200 / 200 Balance 280 / 590 310 / 590 Urine Output (Average ml/kg/hr) 0.52 Intake: Intake, Oral Amount 510 / 510 Intake (Blood Product) Amount 280 / 280 Red Blood Cells Aph ([id number]) 280 / 280 Unit [id number] Output: Output, Urine Amount 200 / 200 Other: Urine Bathroom Urine Color [place] Tinged Weight 31.751 kg Weight 31.751 kg - Constitutional Present: no acute distress - Routine HEENT Exam Head: Present: normal inspection ENT: Present: mucous membranes moist - Routine Neck Exam Present: supple - Routine Respiratory Exam Present: CTAB - Routine Cardiovascular Exam Cardiovascular: Present: RRR, S1, S2, irregularly irregular - Routine Abdominal Exam Present: soft, nontender - Routine Extremities Exam Present: nontender - Routine Skin Exam Present: intact - Routine Neurological Exam Present: alert, oriented X3 - Detailed Neurological Exam: Coma Scale Eye Opening: Spontaneous (4) Verbal Response: Oriented (5) Motor Response: Obeys commands (6) Charlie Coma Scale Total: 15 - Routine Psychiatric Exam Present: normal affect Hem/Onc Consult Result - Labs CBC & Chem 7: 10/02/20 05:50 10/02/20 05:50 Labs: Short CBC 10/01/20 10/02/20 Range/Units 12:40 05:50 WBC 8.7 9.0 (4.8-10.8) X10*3/uL Hgb 6.8 L* D 8.2 L D (12.0-16.0) g/dl Hct 19.7 L* D 23.7 L D (37-47) % Plt Count 239 202 (160-400) X10*3/uL BMP 10/01/20 10/02/20 12:40 05:50 Sodium 143 144 Potassium 3.8 3.8 Chloride 98 100 Carbon Dioxide 38 H 39 H BUN 20 H 16 Creatinine 0.82 0.69 Calcium 8.6 8.0 L D Liver Function 10/01/20 Range/Units 12:40 Total Bilirubin 1.5 H (0.0-1.0) mg/dL Direct Bilirubin 0.6 H (0.0-0.5) mg/dL AST 12 (5-31) U/L ALT 6 (0-31) U/L Alkaline Phosphatase 60 (39-117) U/L Albumin 3.7 (3.5-5.0) g/dL Urine 10/02/20 Range/Units 02:32 Urine Color YELLOW Urine Appearance CLEAR Urine pH 6.0 (5.0-8.0) Ur Specific [place] 1.020 (1.005-1.025) Urine Protein TRACE (NEG-TRACE) MG/DL Urine Glucose (UA) NEG (NEG) MG/DL Assessment and Plan (1) Symptomatic anemia Status: Acute This is a pleasant 74-year-old lady who tells me she presented after a fall. She mentions that some ribs were cracked. She was noted to be significantly anemic with a hemoglobin of 6.8. She was given blood transfusion. She has a history of chronic respiratory failure on 3 L of home oxygen who presents to the emergency department after being found to be anemic as an outpatient. Normocytic anemia: Differential Diagnosis: 1. IRON DEFICIENCY ANEMIA: from occult GI bleeding. However she is Heme neg, Denies rectal bleeding. blood transfusion, 2 units given follow iron studies. Continue iron supplementation 2. HEMOLYTIC ANEMIA: possible : check retic count, hapto, LDH. 3. ACD: rellated to Kidney disease. 4. MYELO-INFILTRATIVE DO: MDS, VS M.M: check SIEP. PLAN: Will proceed with work up as outlined above. If concern is for Myelo-infiltrative DO, will proceed with a Bone Marrow exam. I will follow up as an out patient, if pt is planning to go home. Thanks. CC:
--- NOTE | 2020-10-02 08:51 | P.CDIC_ITS ---
CDI Concurrent Query Service Date: 10/02/20 Documentation Clarification: Please clarify if you are treating a proba ble/suspected/likely or confirmed: Acute blood loss anemia Please specify if known Provider Response: Other Other Diagnosis: Symptomatic anemia of unclear etiology PLEASE DO NOT DELETE/MODIFY EXISTING CONTENT Additional information is needed in order to code to the highest accuracy and a ppropriate Severity of Illness (SOI). Please clarify the information noted below in your progress notes and discharge summary. Risk Factors/Clinical Indicators/Treatments Symptomatic anemia, dehydration, generalized weakness, given 1 unit PRBC in ED. HGB 6.8 improved w transfusion 8.2 HCT 19.7 BP 94/44 Falling at home, smoker PN: Symptomatic anemia, secondary to bleeding, bone marrow disorder. Oncology: Diagnosis: Anemia, GI bleed on Warfarin. CDS: Payton Conrad CCS, CDIS Contact Number: [phone] Please Review the information above and exercise your independent professional judgment in responding to the query. If you concur, pleas document in the PROGRESS NOTES and DISCHARGE SUMMARY. If you do not agree with the query, please document in the query above. THIS QUERY IS PART OF THE PERMANENT MEDICAL RECORD
--- NOTE | 2020-10-02 08:57 | P.CDIC_ITS ---
CDI Concurrent Query Service Date: 10/02/20 Documentation Clarification: Please clarify if you are treating a proba ble/suspected/likely or confirmed: BODY MASS INDEX: Protein calorie malnutrition, mild, moderate or severe Underweight Please specify if known Provider Response: Moderate Protein-Calorie Malnutrition PLEASE DO NOT DELETE/MODIFY EXISTING CONTENT Additional information is needed in order to code to the highest accuracy and appropriate Severity of Illness (SOI). Please clarify the information noted below in your progress notes and discharge summary. Risk Factors/Clinical Indicators/Treatments BMI: 12.8 generalized weakness, falling, cachectic, anemia BP 94/44 Total protein 6.0 Albumin 3.7 CDS: Payton Conrad CCS, CDIS Contact Number: [phone] Please Review the information above and exercise your independent professional judgment in responding to the query. If you concur, pleas document in the PROGRESS NOTES and DISCHARGE SUMMARY. If you do not agree with the query, please document in the query above. THIS QUERY IS PART OF THE PERMANENT MEDICAL RECORD
[2020-10-02 10:19] LABS: Folate 3.8 ng/mL (> or = 4.0); Vitamin B12 1140 pg/mL (200-900)
[2020-10-02] MEDS: Fluticasone/Vilanterol 100/25 BLST.W.DEV 1 PUFF INHALE (11:08)
--- NOTE | 2020-10-02 13:11 | MHC.CM.PN ---
Met with pt. Very pleasant and talkative. Pt currently has services with [facility] and has home O2 through [facility]. Pt's son lives with her and is he HCP, Thien ([phone]). She has no other services. IMM reviewed and signed.Referral placed with [facility]. She is active with them and they will follow. Per MD rounds, will check in with hematology and possible D/C home later this afternoon. Transportation will be provided by son, Thien. CM to call him when pt is discharged.
[2020-10-02] MEDS: LORazepam 0.5 MG TABLET PO (13:44)
--- NOTE | 2020-10-02 13:59 | MHC.CM.PN ---
Pt states her PCP is Dr. Hurst
--- NOTE | 2020-10-02 14:38 | MHC.CLN ---
PT IS SEVERELY MALNOURISHED WILL START ENSURE BID TO INCREASE KCALS SEE ALSO NUTRITION ASSESSMENT
--- NOTE | 2020-10-02 15:14 | P.DS_ITS ---
DS: Providers Provider Date of admission: 10/01/20 16:00 Primary care physician: Unknown Physician Consults: 10/01/20 17:07 Consult to Hematology / Oncology Routine Consulting Provider: Billie Yusuf Reason for consultation: Symptomatic anemia, on anticoagulation no GI bleed, for your kind pe[place] DS: Diagnosis Discharge Diagnosis (1) Symptomatic anemia: Status: Acute (2) Atrial fibrillation: Status: Acute (3) Chronic respiratory failure with hypoxia: Status: Acute (4) Moderate protein malnutrition: Status: Acute DS: Medications Discharge Medications Home Medications: Home Medications Medication Instructions Recorded Confirmed Combivent Respimat 1 puff INHALATION BID 08/13/20 10/01/20 albuterol sulfate 1 inh INHALATION Q4-6H PRN 08/13/20 10/01/20 buspirone 5 mg PO TID 08/13/20 10/01/20 meclizine 12.5 mg PO TID PRN 08/13/20 10/01/20 metoprolol tartrate 12.5 mg PO BID 08/13/20 10/01/20 oxycodone-acetaminophen 1 tab PO Q6H PRN 08/13/20 10/01/20 Eliquis 1 tab PO BID 10/01/20 10/01/20 Trelegy Ellipta 1 inh INHALATION DAILY 10/01/20 10/01/20 lorazepam 1 tab PO Q8H PRN 10/01/20 10/01/20 zolpidem 1 tab PO BEDTIME PRN 10/01/20 10/01/20 Previous Rx's Medication Instructions Recorded ferrous sulfate 325 mg PO BID #60 tab 08/16/20 omeprazole 20 mg PO DAILY #30 cap 08/16/20 DS: Summary Hospital Course Hospital Course: Admission note HPI this is a 74-year-old female who was sent to the emergency department today due to abnormal labs. She was recently changed from Coumadin to Eliquis for her atrial fibrillation. She had routine labs checked as an outpatient and was noted to be anemic. She reports generalized weakness. She denies any chest pain, shortness of breath, dizziness. She denies any dark or bloody stools. H/ H in the ED was 6.8/19.7 which is down from 11.2/33.1 on August 13. 1 unit of blood was ordered to the emergency department. Of note patient was admitted in August for anemia and received blood transfusion. But she was discharged home the plan was for her to follow up with GI. She has not yet done so. of note she did fall this past weekend and therefore she had a CT scan of her chest and abdomen which did not show any retroperitoneal hematoma or other injury. Her brain CT was also negative for bleed. She denies ever having a colonoscopy in the past. Hospital course The patient was admitted to the hospital for evaluation of symptomatic anemia as her hemoglobin dropped from 10-11 baseline to 6.8 at time of presentation. No clear source of bleeding identified. Images were negative for any hematoma. She tested negative for occult stool. She received a unit of blood with good response as her hemoglobin improved above 8. Hematology consulted and recommended outpatient follow-up as the rest of her blood test still pending. Advised to continue home medications at this point To repeat blood test area next week Advised to come back to the emergency for any shortness of breath or bleeding Time Spent with Patient Time attestation: Total time spent providing and/or coordinating discharge services: Physical Exam Vital Signs: Vital Signs: Last Vital Signs Temp 98.9 F 10/02/20 11:46 Pulse 70 10/02/20 12:13 Resp 16 10/02/20 11:46 BP 99/48 L 10/02/20 11:46 Pulse Ox 100 10/02/20 11:46 Body Mass Index 12.8 Constitutional : Alert, oriented, not in distress, very thin and looks malnourished Neck : Normal inspection, Supple Cardiovascular : RRR, S1 S2, no lower extremity edema Respiratory : Good bilateral air entry, no crackles, wheezes or rhonchi Gastrointestinal: soft, lax, Normal bowel sounds, Non tender Skin : Warm/Dry, No rash Neurological : Alert & oriented x3, No focal deficit DS: Data Data Completed and Pending Completed studies during hospitalization [Text1]: Procedures Transfusion of Nonautologous Red Blood Cells into Peripheral Vein, Percutaneous Approach (08/12/20) Labs on day of discharge: 10/01/20 12:20 ECG 12 lead EKG Stat EKG Documentation DIRECTED 10/01/20 12:33 CT abdomen pelvis wo con Stat CT chest wo con Stat CT head/brain wo con Stat 10/01/20 12:40 Basic Metabolic Panel Stat Ferritin Stat IRON PROFILE Stat Liver Panel Stat Magnesium Stat 10/01/20 12:41 COVID-19 ID NOW (Go) Stat Partial Thromboplastin Time Stat Prothrombin Time INR Stat Troponin-I High Sensitivity Stat 10/01/20 12:45 [id number] Stat 10/01/20 13:42 Red Blood Cells Stat Type and Screen Stat 10/01/20 15:54 Transfer Order Routine 10/01/20 16:32 Consult Rx Perform Med Rec 1 each MISCELLANE ONCE PRN 10/01/20 18:21 Add Laboratory Test Stat 10/01/20 22:40 UA CC w/rflx Micro + Cult Stat 10/02/20 00:00 Albuterol/Iprat 2.5/0.5MG 3 ML [Duoneb] 1 ml INHALE RQ6H 10/02/20 05:50 Basic Metabolic Panel DAILY@0600 Complete Blood Count Auto Diff DAILY@0600 Lactate Dehydrogenase Routine SLIDE REVIEW Routine Vitamin B12 and Folate Routine 10/02/20 07:58 Add Laboratory Test Urgent 10/02/20 08:00 Albuterol/Iprat 2.5/0.5MG 3 ML [Duoneb] 3 ml INHALE RQ6H WHILE AWAKE 10/02/20 09:00 [id number] [Trelegy Ellipta] 1 inhalation INHALE DAILY 10/02/20 09:28 Add Laboratory Test Routine Laboratory Last Values WBC 9.0 X10*3/uL (4.8-10.8) 10/02/20 05:50 RBC 2.43 X10*6/uL (4.20-5.50) L D 10/02/20 05:50 Hgb 8.2 g/dl (12.0-16.0) L D 10/02/20 05:50 Hct 23.7 % (37-47) L D 10/02/20 05:50 MCV 97.5 fL (80-98) 10/02/20 05:50 MCH 33.7 pg (27.0-33.0) H 10/02/20 05:50 MCHC 34.6 g/dl (31.0-35.0) 10/02/20 05:50 RDW 17.2 % (11.0-16.0) H 10/02/20 05:50 Plt Count 202 X10*3/uL (160-400) 10/02/20 05:50 MPV 10.9 fL (9.4-12.3) 10/02/20 05:50 Immature Gran % (Auto) 0.8 % (0.0-0.4) H 10/02/20 05:50 Neut % (Auto) 81.8 % (45-73) H 10/02/20 05:50 Lymph % (Auto) 5.9 % (20-40) L 10/02/20 05:50 [place] % (Auto) 7.7 % (2-11) 10/02/20 05:50 Eos % (Auto) 3.5 % (0-4) 10/02/20 05:50 Baso % (Auto) 0.3 % (0-2) 10/02/20 05:50 Lymph # (Auto) 0.5 X10*3/uL (1.2-4.9) L 10/02/20 05:50 [place] # (Auto) 0.7 X10*3/uL (0.1-1.2) 10/02/20 05:50 Eos # (Auto) 0.3 X10*3/uL (0.0-0.4) 10/02/20 05:50 Baso # (Auto) 0.0 X10*3/uL (0.0-0.2) 10/02/20 05:50 Abs Immat Gran (auto) 0.07 X10*3/uL (0.00-0.03) H 10/02/20 05:50 Absolute Neuts (auto) 7.3 X10*3/uL (2.0-8.3) 10/02/20 05:50 Absolute Nucleated RBC 0.000 X10*3/uL (0.0-0.012) 10/02/20 05:50 Nucleated RBC % (auto) 0.0 /100WBC (0.0-0.2) 10/02/20 05:50 Smear Tech's Comments VERIFIED 10/02/20 05:50 Absolute Retic 0.128 X10*6/uL (0.026-0.095) H 10/01/20 12:40 Percent Retic 6.4 % (0.5-1.8) H 10/01/20 12:40 Immature Retic Fraction 13.2 % (3.0-15.9) 10/01/20 12:40 Retic Hgb Equivalent 36.0 pg (30.0-35.0) H 10/01/20 12:40 PT 13.7 SEC (10.8-13.0) H 10/01/20 12:41 INR 1.2 (0.9-1.1) H 10/01/20 12:41 APTT 35.9 SEC (24.1-38.0) 10/01/20 12:41 Sodium 144 mmol/L (135-145) 10/02/20 05:50 Potassium 3.8 mmol/l (3.3-5.1) 10/02/20 05:50 Chloride 100 mmol/L (96-108) 10/02/20 05:50 Carbon Dioxide 39 mmol/L (22-29) H 10/02/20 05:50 Anion Gap 9 (12-20) L 10/02/20 05:50 BUN 16 mg/dL (9-16) 10/02/20 05:50 Creatinine 0.69 mg/dL (0.5-1.4) 10/02/20 05:50 Estim Creat Clear Calc 35.3 10/02/20 05:50 Estimated GFR > 60 10/02/20 05:50 Random Glucose 84 mg/dL (60-115) 10/02/20 05:50 Calcium 8.0 mg/dL (8.4-10.2) L D 10/02/20 05:50 Magnesium 1.9 mg/dL (1.6-2.6) 10/01/20 12:40 Iron 81 mcg/dL (30-160) 10/01/20 12:40 TIBC 214 mcg/dL (228-428) L 10/01/20 12:40 % Saturation 38 % (15-50) 10/01/20 12:40 Unsat Iron Binding 133 ug/dL 10/01/20 12:40 Ferritin 169 ng/mL (10-250) 10/01/20 12:40 Total Bilirubin 1.5 mg/dL (0.0-1.0) H 10/01/20 12:40 Direct Bilirubin 0.6 mg/dL (0.0-0.5) H 10/01/20 12:40 AST 12 U/L (5-31) 10/01/20 12:40 ALT 6 U/L (0-31) 10/01/20 12:40 Alkaline Phosphatase 60 U/L (39-117) 10/01/20 12:40 Lactate Dehydrogenase 134 U/L (122-220) 10/02/20 05:50 Troponin I High Sens 8.2 ng/L (<3.5-17.0) 10/01/20 12:41 Total Protein 6.0 g/dL (6.5-8.0) L 10/01/20 12:40 Albumin 3.7 g/dL (3.5-5.0) 10/01/20 12:40 Vitamin B12 1140 pg/mL (200-900) H 10/02/20 05:50 Folate 3.8 ng/mL (> or = 4.0) L 10/02/20 05:50 Urine Color YELLOW 10/02/20 02:32 Urine Appearance CLEAR 10/02/20 02:32 Urine pH 6.0 (5.0-8.0) 10/02/20 02:32 Ur Specific [employer] 1.020 (1.005-1.025) 10/02/20 02:32 Urine Protein TRACE MG/DL (NEG-TRACE) 10/02/20 02:32 Urine Glucose (UA) NEG MG/DL (NEG) 10/02/20 02:32 Urine Ketones NEG MG/DL (NEG) 10/02/20 02:32 Urine Blood NEG (NEG) 10/02/20 02:32 Urine Nitrite NEG (NEG) 10/02/20 02:32 Ur Leukocyte Esterase NEG (NEG) 10/02/20 02:32 Stool Occult Blood NEG (NEG) 10/01/20 12:45 COVID-19 (NASE[facility]) Negative (Negative) 10/01/20 12:41 COVID-19 Clin Com See Note 10/01/20 12:41 Blood Type O Positive 10/01/20 13:42 Antibody Screen NEGATIVE 10/01/20 13:42 Crossmatch See Detail 10/01/20 13:42 Discharge Plan Discharge Patient Disposition: Home, Self-Care Referrals: Physician,Unknown [Primary Care Provider] - Discharge Medications: Continued buspirone 5 mg Tablet 5 mg PO TID RF: 0 meclizine 12.5 mg Tablet 12.5 mg PO TID PRN (Reason: Dizziness) RF: 0 oxycodone-acetaminophen 10-325 mg Tablet 1 tab PO Q6H PRN (Reason: Mild Pain (Scale Score 1-4)) RF: 0 albuterol sulfate 90 mcg/actuation Hfa Aerosol Inhaler 1 inh INHALATION Q4-6H PRN (Reason: Dyspnea) RF: 0 metoprolol tartrate 25 mg Tablet 12.5 mg PO BID RF: 0 Combivent Respimat 20-100 mcg/actuation Mist 1 puff INHALATION BID RF: 0 omeprazole 20 mg Capsule,Delayed Release(Dr/Ec) 20 mg PO DAILY Qty: 30 RF: 0 ferrous sulfate 325 mg (65 mg iron) tablet 325 mg PO BID Qty: 60 RF: 0 lorazepam 0.5 mg tablet 1 tab PO Q8H PRN (Reason: anxiety) RF: 0 zolpidem 5 mg tablet 1 tab PO BEDTIME PRN (Reason: insomnia) RF: 0 Eliquis 2.5 mg tablet 1 tab PO BID RF: 0 Trelegy Ellipta 100-62.5-25 mcg blister with device 1 inh inhalation DAILY RF: 0 Discharge Orders: Discharge Order (Routine); Ordered 10/02/20 Ordered By: Russ Corrigan Diet: advance to usual diet Activity on Discharge: As tolerated Visit Report Forms: Patient Portal Discharge page Care Plan Goals: To read below Health Concerns: Read below Plan of Treatment: You were admitted to the hospital for evaluation of acute anemia. Blood work did not show any source of bleeding. You received 1 unit of blood with fair response. Continue home medications as prescribed To follow-up with Dr. Yusuf in the clinic. Please call [phone] for appointment Please come back to the hospital for any worsening shortness of breath or blood with the stool
--- NOTE | 2020-10-02 15:34 | MHC.CM.PN ---
Pt to be discharged. Pt callled son, Thien to pick her up at 1630.
[2020-10-03 17:16] LABS: Haptoglobin 68 mg/dL (43-212)
[2020-10-06 12:22] LABS: IgA 261 mg/dL (70-320); IgG 882 mg/dL (600-1540); IgM 82 mg/dL (50-300)
== END 2020-10-02 17:18 | disposition home or self-care (01) | DRG 812 ==
LOC: HO.ED 14:55 → HO.S3 17:02
PROVIDERS: Internal Medicine Medical Oncology; Physician Assistant; Physician Assistant Medical; Admitting Provider Student in an Organized Health Care Education/Training Program; Emergency Provider Emergency Medicine; Visit Provider Student in an Organized Health Care Education/Training Program
DX: D64.9 Anemia, unspecified (principal); N39.0 Urinary tract infection, site not specified; J96.11 Chronic respiratory failure with hypoxia; E44.0 Moderate protein-calorie malnutrition; Z68.1 Body mass index [BMI] 19.9 or less, adult; I48.91 Unspecified atrial fibrillation; F17.210 Nicotine dependence, cigarettes, uncomplicated; Z71.6 Tobacco abuse counseling; K21.9 Gastro-esophageal reflux disease without esophagitis; Z20.828 Contact with and (suspected) exposure to other viral communicable diseases; F41.9 Anxiety disorder, unspecified; F32.9 Major depressive disorder, single episode, unspecified; Z99.81 Dependence on supplemental oxygen; J44.9 Chronic obstructive pulmonary disease, unspecified; E86.0 Dehydration; Z79.01 Long term (current) use of anticoagulants; Z79.891 Long term (current) use of opiate analgesic; Z79.899 Other long term (current) drug therapy; Z66 Do not resuscitate
CPT/HCPCS: 36415; 36430; 70450; 71250; 74176; 80048; 80076; 81003; 82272; 82607; 82728; 82746; 82784; 83010; 83540; 83615; 83735; 84484; 85025; 85045; 85060; 85610; 85730; 86334; 86850; 86900; 86901; 86920; 86923; 87635; 93005; 94640; 99285; 99291; P9016

== ENCOUNTER 2020-10-21 15:30 | Inpatient (IN) | payer MEDICARE, SELFPAY ==
--- NOTE | 2020-10-21 | ECG_ITS ---
Test Reason : AFIB Blood Pressure : / mmHG Vent. Rate : 092 BPM Atrial Rate : 092 BPM P-R Int : 164 ms QRS Dur : 068 ms QT Int : 336 ms P-R-T Axes : 070 080 077 degrees QTc Int : 415 ms Sinus rhythm with Premature atrial complexes Septal infarct , age undetermined Abnormal ECG When compared with ECG of 21-OCT-2020 16:28, No significant changes seen Referred By: Naif Bell Electronically Signed By:SHANIQUE DE OLIVEIRA
[2020-10-21 15:41] VITALS: BP 92/35; BP 99/46; PULSE 89; PULSE 95; RESP 22; TEMP 36.9; O2SAT 98; O2SAT 99; BMI 12.2
[2020-10-21 15:50] VITALS: BP 92/35; PULSE 83; RESP 17; TEMP 36.9; O2SAT 99
--- NOTE | 2020-10-21 16:12 | ECG_ITS ---
Test Reason : SOB Blood Pressure : / mmHG Vent. Rate : 082 BPM Atrial Rate : 082 BPM P-R Int : 178 ms QRS Dur : 068 ms QT Int : 352 ms P-R-T Axes : 079 069 060 degrees QTc Int : 411 ms Normal sinus rhythm Normal ECG When compared with ECG of 01-OCT-2020 13:33, Premature atrial complexes are no longer Present Referred By: Naif Bell Electronically Signed By:SHANIQUE DE OLIVEIRA
--- NOTE | 2020-10-21 16:12 | XR_ITS ---
EXAMINATION: XR CHEST CLINICAL INFORMATION: Shortness of breath COMPARISON: Chest radiograph 08/12/[address] 10/01/2020 TECHNIQUE: Frontal view of the chest was obtained. FINDINGS: Again noted is hyperinflation and COPD. Coarse interstitial markings remain. Slight increased density seen overlying the right first rib most likely secondary to a compilation of shadows and/or apical scarring which was seen on the CT scan. No focal consolidations or effusions are seen. Vertebral plasty changes again noted in the lumbar spine. No acute finding is seen XR/XR chest 1V IMPRESSION: COPD with no acute intrathoracic disease.
--- NOTE | 2020-10-21 16:24 | ED.GENADULT ---
HPI - General Adult General Chief complaint: General Medical Stated complaint: SOB X 2 DAYS Time Seen by Provider: 10/21/20 15:49 Source: patient and EMS Mode of arrival: ambulatory Limitations: no limitations History of Present Illness HPI narrative: 74 y/o female presents to ED for SOB and SCHAFER x 2 days, one episode of substernal chest pain yesterday which was mild and lasted 15 minutes without associated symptoms, constipation x1 week and bilateral leg swelling. The patient has a history of COPD on 2.5 L via NC who continues to smoke 1/2 pack per day. The patient states that she has worsening SOB and SCHAFER above her baseline. She has an occasional cough productive of yellow sputum. She has chronic constipation. She has not moved her bowels in over 1 week.She states that she can walk with a walker but can only walk 10 feet before becoming SOB. Her son lives with her, she has not left her house in over 1 year. MD complaint: shortness of breath Onset (ago): day(s) (2) Related Data Home Medications Medication Instructions Recorded Confirmed Combivent Respimat 1 puff INHALATION QID PRN 08/13/20 10/21/20 albuterol sulfate 1 inh INHALATION Q4-6H PRN 08/13/20 10/21/20 buspirone 5 mg PO TID 08/13/20 10/21/20 meclizine 12.5 mg PO TID PRN 08/13/20 10/21/20 metoprolol tartrate 12.5 mg PO BID 08/13/20 10/21/20 oxycodone-acetaminophen 1 tab PO Q6H PRN 08/13/20 10/21/20 Eliquis 2.5 mg PO BID 10/01/20 10/21/20 Trelegy Ellipta 1 inh INHALATION DAILY 10/01/20 10/21/20 lorazepam 0.5 mg PO Q8H PRN 10/01/20 10/21/20 zolpidem 5 mg PO BEDTIME PRN 10/01/20 10/21/20 [id number] 1 puff PO DAILY 10/21/20 10/21/20 [Trelegy Ellipta] prednisone 10 mg PO DAILY 10/21/20 10/21/20 warfarin 1 - 2 tab PO DAILY 10/21/20 10/21/20 Previous Rx's Medication Instructions Recorded ferrous sulfate 325 mg PO BID #60 tab 08/16/20 omeprazole 20 mg PO DAILY #30 cap 08/16/20 Allergies Allergy/AdvReac Type Severity Reaction Status Date / Time No Known Allergies Allergy Unverified 07/30/20 14:53 [No Known Allergies*] Review of Systems Review of Systems: Yes all other systems are reviewed and are negative Constitutional: Constitutional: Reports as per HPI Eyes: Eyes: Reports as per HPI ENT: Reports as per HPI Cardiovascular: Cardiovascular: Reports as per HPI Respiratory: Respiratory: Reports as per HPI Gastrointestinal: Gastrointestinal: Reports as per HPI Genitourinary: Genitourinary: Reports as per HPI Musculoskeletal: Musculoskeletal: Reports as per HPI Integumentary/Breasts: Skin/Breast: Reports as per HPI Neurologic: Reports as per HPI and Reports Abnormal speech present Psychiatric: Psychiatric: Reports as per HPI Allergic/Immunologic: Allergic/Immunologic: Reports as per HPI [facility] Past Medical History [facility] Narrative: The patient's son lives with her. She continues to smoke 1/2 pack of cigarettes per day, denies tobacco alcohol use. Medical History Atrial fibrillation Chronic respiratory failure with hypoxia COPD (chronic obstructive pulmonary disease) Depression GERD (gastroesophageal reflux disease) Normocytic anemia Symptomatic anemia Vertigo Social History Social History Household Members: Children Housing: House Alcohol intake: never Smoking Status: Current every day smoker Tobacco Type: Cigarette Packs Per Day: 1 Smoked in Last 30 Days: No Second Hand Smoke Exposure: No Use of substances other than those prescribed or required for medical reasons: No Advance Directives: No Advance Directives Information Provided: No service: No Current occupational status: retired Physical Exam Vital Signs: Vital Signs: Last Vital Signs Temp 98.1 F 10/21/20 22:05 Pulse 79 10/21/20 22:05 Resp 11 L 10/21/20 22:05 BP 97/40 L 10/21/20 22:05 Pulse Ox 99 10/21/20 22:05 Body Mass Index 12.2 Const: General: cooperative, no acute distress, alert and awake Nutritional Appearance: thin (Cachectic) Orientation/consciousness: oriented to person and oriented to place Limitations: no limitations HENMT: Head: Yes normal to inspection, Yes normocephalic and Yes atraumatic Ears: external ears normal General nose exam: Normal external nose present Face and sinus: Yes normal facial exam Mouth: Normal oral and palatal mucosa present Throat: Yes posterior oropharynx normal Eyes: General: appearance normal, both eyes and all related structures Periorbital: periorbital findings normal Eyelids: Yes eyelids normal Conjunctivae: conjunctivae normal Sclerae: sclerae normal Corneas: corneas normal Pupils: Equal, round and reactive pupils present Direct Ophthalmoscopy: normal light reflex Neck: Neck: Yes normal visual inspection and Yes supple Lymphatic: no lymphadenopathy noted Chest: Chest palpation & inspection: normal inspection of the chest and normal palpation of entire chest wall Resp: Effort & Inspection: normal respiratory effort, abnormal respiratory pattern, no audible wheezes and no respiratory distress Auscultation: clear to auscultation bilaterally, no crackles, no rales, no rhonchi and no wheezes Cardio: Rate: regular rate Rhythm: regular rhythm Heart sounds: S1 normal heart sound present, S2 normal heart sound present and no murmurs GI: Inspection: No distended Palpation (GI): Soft to palpation, nontender, no guarding and No hepatosplenomegaly present Auscultation: normal bowel sounds Rectal Exam - Female: other (Dark, loose stool independent, patient was impacted with hard stool) : General: Yes no CVA tenderness Back/Spine/Pelvis: Back: no CVA tenderness Skin: General skin exam: no rashes or lesions noted Lesions: no lesions Rashes: no rashes Wounds: no wounds Neuro: General: oriented to person and oriented to place Cranial nerves: Yes CN's II-XII intact bilaterally and Yes Equal, round and reactive pupils present Cognition (Neuro): normal cognition Speech: Abnormal speech present Motor exam (neuro): 5/5 motor strength present throughout Extrem: General: Yes normal to inspection, Yes full ROM, Yes no pedal edema and Yes no calf tenderness Psych: Appearance: grossly normal Mental Status: mental status grossly normal Speech and movement: Clear speech present Affect: normal affect Thought process: Normal thought process present Course Course Course Narrative: 74-year-old female who presents to the emergency department for evaluation of shortness of breath x2 days, worsening dyspnea on exertion, occasional productive cough, no bowel movement x1 week. Physical examination did reveal a cachectic elderly woman. Rectal examination did reveal dark stool which was Hemoccult positive, she also had hard stool and I disempact her. The patient's laboratory evaluation [place] [id number] and anemia with an H&H of 7.5 and 22.1. Patient also has a slight elevation in BUN of 26. The patient had similar anemia 1 month prior. The patient's troponin was not elevated. Her urinalysis was negative. Her chest x-ray did reveal interstitial infiltrates but I suspect that this is more consistent with her COPD as opposed to an infectious process. She was COVID-19 negative. Her lactate was not elevated. I did discuss the patient's presentation with the covering hospitalist, Dr. Alarcon. Given her dyspnea on exertion I am concerned that her symptoms may be secondary to anemia especially since she is Hemoccult positive. It is possible that she may have an infectious process however I think this is less likely. Given the fact that she does have COPD with an occasional cough she will be treated with Zithromax 500 mg orally for possible bronchitis. This patient does meet SIRS criteria but he did not think that she has sepsis and that her symptoms are better explained by her severe anemia. Medical Decision Making Lab Data Result diagrams: 10/21/20 17:03 10/21/20 17:03 Labs: Lab Results 10/21/20 10/21/20 10/21/20 Range/Units 17:03 17:03 17:03 WBC 12.1 H (4.8-10.8) X10*3/uL RBC 2.16 L (4.20-5.50) X10*6/uL Hgb 7.5 L (12.0-16.0) g/dl Hct 22.1 L (37-47) % MCV 102.3 H (80-98) fL MCH 34.7 H (27.0-33.0) pg MCHC 33.9 (31.0-35.0) g/dl RDW 19.5 H (11.0-16.0) % Plt Count 259 D (160-400) X10*3/uL MPV 11.2 (9.4-12.3) fL Immature Gran % (Auto) Cancelled Neut % (Auto) Cancelled Lymph % (Auto) Cancelled [place] % (Auto) Cancelled Eos % (Auto) Cancelled Baso % (Auto) Cancelled Lymph # (Auto) Cancelled [place] # (Auto) Cancelled Eos # (Auto) Cancelled Baso # (Auto) Cancelled Abs Immat Gran (auto) Cancelled Absolute Neuts (auto) Cancelled Absolute Nucleated RBC 0.000 (0.0-0.012) X10*3/uL Nucleated RBC % (auto) 0.0 (0.0-0.2) /100WBC Neutrophils % (Manual) 96 H (45-73) % Band Neutrophils % 2 L (3-5) % Monocytes % (Manual) 2 (2-11) % Abs Neuts (Manual) 11.9 H (2.2-7.9) X10*3/uL Monocytes # (Manual) 0.2 (0.0-1.2) X10*3/uL Platelet Estimate NORMAL (NORMAL) Plt Morphology Comment NORMAL RBC Morphology NORMAL PT 14.8 H (10.8-13.0) SEC INR 1.2 H (0.9-1.1) APTT 33.6 (24.1-38.0) SEC Sodium 141 (135-145) mmol/L Potassium 4.7 D (3.3-5.1) mmol/l Chloride 94 L (96-108) mmol/L Carbon Dioxide 38 H (22-29) mmol/L Anion Gap 14 (12-20) BUN 26 H D (9-16) mg/dL Creatinine 0.77 (0.5-1.4) mg/dL Estim Creat Clear Calc 30.3 Estimated GFR > 60 Random Glucose 101 (60-115) mg/dL Lactic Acid (0.5-2.0) mmol/L Calcium 8.5 D (8.4-10.2) mg/dL Total Bilirubin 2.0 H (0.0-1.0) mg/dL Direct Bilirubin 0.8 H (0.0-0.5) mg/dL AST 18 D (5-31) U/L ALT 9 (0-31) U/L Alkaline Phosphatase 77 D (39-117) U/L Troponin I High Sens (<3.5-17.0) ng/L B-Natriuretic Peptide (<100) pg/mL Total Protein 6.5 (6.5-8.0) g/dL Albumin 4.1 (3.5-5.0) g/dL Urine Color Urine Appearance Urine pH (5.0-8.0) Ur Specific [place] (1.005-1.025) Urine Protein (NEG-TRACE) MG/DL Urine Glucose (UA) (NEG) MG/DL Urine Ketones (NEG) MG/DL Urine Blood (NEG) Urine Nitrite (NEG) Ur Leukocyte Esterase (NEG) Urine RBC (0) /HPF Urine WBC (0-4) /HPF Ur Squamous Epith Cells /LPF Urine Bacteria /LPF Stool Occult Blood (NEG) Coronavirus (PCR) (Negative) Influenza Type A (PCR) (Negative) Influenza Type B (PCR) (Negative) RSV RNA Qual (PCR) (Negative) 10/21/20 10/21/20 10/21/20 Range/Units 17:03 17:03 17:03 WBC (4.8-10.8) X10*3/uL RBC (4.20-5.50) X10*6/uL Hgb (12.0-16.0) g/dl Hct (37-47) % MCV (80-98) fL MCH (27.0-33.0) pg MCHC (31.0-35.0) g/dl RDW (11.0-16.0) % Plt Count (160-400) X10*3/uL MPV (9.4-12.3) fL Immature Gran % (Auto) Neut % (Auto) Lymph % (Auto) [place] % (Auto) Eos % (Auto) Baso % (Auto) Lymph # (Auto) [place] # (Auto) Eos # (Auto) Baso # (Auto) Abs Immat Gran (auto) Absolute Neuts (auto) Absolute Nucleated RBC (0.0-0.012) X10*3/uL Nucleated RBC % (auto) (0.0-0.2) /100WBC Neutrophils % (Manual) (45-73) % Band Neutrophils % (3-5) % Monocytes % (Manual) (2-11) % Abs Neuts (Manual) (2.2-7.9) X10*3/uL Monocytes # (Manual) (0.0-1.2) X10*3/uL Platelet Estimate (NORMAL) Plt Morphology Comment RBC Morphology PT (10.8-13.0) SEC INR (0.9-1.1) APTT (24.1-38.0) SEC Sodium (135-145) mmol/L Potassium (3.3-5.1) mmol/l Chloride (96-108) mmol/L Carbon Dioxide (22-29) mmol/L Anion Gap (12-20) BUN (9-16) mg/dL Creatinine (0.5-1.4) mg/dL Estim Creat Clear Calc Estimated GFR Random Glucose (60-115) mg/dL Lactic Acid 0.9 (0.5-2.0) mmol/L Calcium (8.4-10.2) mg/dL Total Bilirubin (0.0-1.0) mg/dL Direct Bilirubin (0.0-0.5) mg/dL AST (5-31) U/L ALT (0-31) U/L Alkaline Phosphatase (39-117) U/L Troponin I High Sens 6.9 (<3.5-17.0) ng/L B-Natriuretic Peptide 69 (<100) pg/mL Total Protein (6.5-8.0) g/dL Albumin (3.5-5.0) g/dL Urine Color Urine Appearance Urine pH (5.0-8.0) Ur Specific [place] (1.005-1.025) Urine Protein (NEG-TRACE) MG/DL Urine Glucose (UA) (NEG) MG/DL Urine Ketones (NEG) MG/DL Urine Blood (NEG) Urine Nitrite (NEG) Ur Leukocyte Esterase (NEG) Urine RBC (0) /HPF Urine WBC (0-4) /HPF Ur Squamous Epith Cells /LPF Urine Bacteria /LPF Stool Occult Blood (NEG) Coronavirus (PCR) NEGATIVE (Negative) Influenza Type A (PCR) NEGATIVE (Negative) Influenza Type B (PCR) NEGATIVE (Negative) RSV RNA Qual (PCR) NEGATIVE (Negative) 10/21/20 10/21/20 Range/Units 19:04 19:24 WBC (4.8-10.8) X10*3/uL RBC (4.20-5.50) X10*6/uL Hgb (12.0-16.0) g/dl Hct (37-47) % MCV (80-98) fL MCH (27.0-33.0) pg MCHC (31.0-35.0) g/dl RDW (11.0-16.0) % Plt Count (160-400) X10*3/uL MPV (9.4-12.3) fL Immature Gran % (Auto) Neut % (Auto) Lymph % (Auto) [place] % (Auto) Eos % (Auto) Baso % (Auto) Lymph # (Auto) [place] # (Auto) Eos # (Auto) Baso # (Auto) Abs Immat Gran (auto) Absolute Neuts (auto) Absolute Nucleated RBC (0.0-0.012) X10*3/uL Nucleated RBC % (auto) (0.0-0.2) /100WBC Neutrophils % (Manual) (45-73) % Band Neutrophils % (3-5) % Monocytes % (Manual) (2-11) % Abs Neuts (Manual) (2.2-7.9) X10*3/uL Monocytes # (Manual) (0.0-1.2) X10*3/uL Platelet Estimate (NORMAL) Plt Morphology Comment RBC Morphology PT (10.8-13.0) SEC INR (0.9-1.1) APTT (24.1-38.0) SEC Sodium (135-145) mmol/L Potassium (3.3-5.1) mmol/l Chloride (96-108) mmol/L Carbon Dioxide (22-29) mmol/L Anion Gap (12-20) BUN (9-16) mg/dL Creatinine (0.5-1.4) mg/dL Estim Creat Clear Calc Estimated GFR Random Glucose (60-115) mg/dL Lactic Acid (0.5-2.0) mmol/L Calcium (8.4-10.2) mg/dL Total Bilirubin (0.0-1.0) mg/dL Direct Bilirubin (0.0-0.5) mg/dL AST (5-31) U/L ALT (0-31) U/L Alkaline Phosphatase (39-117) U/L Troponin I High Sens (<3.5-17.0) ng/L B-Natriuretic Peptide (<100) pg/mL Total Protein (6.5-8.0) g/dL Albumin (3.5-5.0) g/dL Urine Color YELLOW Urine Appearance CLEAR Urine pH 7.0 (5.0-8.0) Ur Specific [place] 1.010 (1.005-1.025) Urine Protein 1+ H (NEG-TRACE) MG/DL Urine Glucose (UA) NEG (NEG) MG/DL Urine Ketones NEG (NEG) MG/DL Urine Blood 1+ H (NEG) Urine Nitrite NEG (NEG) Ur Leukocyte Esterase NEG (NEG) Urine RBC 1-4 (0) /HPF Urine WBC 0 (0-4) /HPF Ur Squamous Epith Cells NONE /LPF Urine Bacteria 1+ /LPF Stool Occult Blood POS (NEG) Coronavirus (PCR) (Negative) Influenza Type A (PCR) (Negative) Influenza Type B (PCR) (Negative) RSV RNA Qual (PCR) (Negative) Discharge Plan Discharge Clinical Impression: Anemia, Weakness, Bronchitis Patient Disposition: Admitted As Inpatient Prescriptions: No Action buspirone 5 mg Tablet 5 mg PO TID RF: 0 meclizine 12.5 mg Tablet 12.5 mg PO TID PRN (Reason: Dizziness) RF: 0 oxycodone-acetaminophen 10-325 mg Tablet 1 tab PO Q6H PRN (Reason: Mild Pain (Scale Score 1-4)) RF: 0 albuterol sulfate 90 mcg/actuation Hfa Aerosol Inhaler 1 inh INHALATION Q4-6H PRN (Reason: Dyspnea) RF: 0 metoprolol tartrate 25 mg Tablet 12.5 mg PO BID RF: 0 Combivent Respimat 20-100 mcg/actuation Mist 1 puff INHALATION QID PRN (Reason: Shortness Of Breath) RF: 0 omeprazole 20 mg Capsule,Delayed Release(Dr/Ec) 20 mg PO DAILY Qty: 30 RF: 0 ferrous sulfate 325 mg (65 mg iron) tablet 325 mg PO BID Qty: 60 RF: 0 prednisone 10 mg tablet 10 mg PO DAILY RF: 0 warfarin 2.5 mg tablet 1 - 2 tab PO DAILY RF: 0 Trelegy Ellipta 100-62.5-25 mcg blister with device 1 puff PO DAILY RF: 0 lorazepam 0.5 mg tablet 0.5 mg PO Q8H PRN (Reason: anxiety) RF: 0 zolpidem 5 mg tablet 5 mg PO BEDTIME PRN (Reason: insomnia) RF: 0 Eliquis 2.5 mg tablet 2.5 mg PO BID RF: 0 Trelegy Ellipta 100-62.5-25 mcg blister with device 1 inh inhalation DAILY RF: 0
[2020-10-21 17:24] LABS: Hematocrit 22.1 % (37-47); Hemoglobin 7.5 g/dl (12.0-16.0); Mean Corpuscular HGB Conc 33.9 g/dl (31.0-35.0); Mean Corpuscular Hemoglobin 34.7 pg (27.0-33.0); Mean Corpuscular Volume 102.3 fL (80-98); Mean Platelet Volume 11.2 fL (9.4-12.3); Platelet Count 259 X10*3/uL (160-400); Red Blood Count 2.16 X10*6/uL (4.20-5.50); Red Cell Distribution Width 19.5 % (11.0-16.0); White Blood Count 12.1 X10*3/uL (4.8-10.8)
[2020-10-21 17:25] LABS: INTERNATIONAL NORM RATIO 1.2 (0.9-1.1); Prothrombin Time 14.8 SEC (10.8-13.0)
[2020-10-21 17:28] LABS: Partial Thromboplastin Time 33.6 SEC (24.1-38.0)
[2020-10-21 17:44] LABS: Lactic Acid 0.9 mmol/L (0.5-2.0)
[2020-10-21 17:48] LABS: Alanine Aminotransferase 9 U/L (0-31); Albumin Level 4.1 g/dL (3.5-5.0); Alkaline Phosphatase 77 U/L (39-117); Anion Gap 14 (12-20); Aspartate Amino Transferase 18 U/L (5-31); Bilirubin Direct 0.8 mg/dL (0.0-0.5); Blood Urea Nitrogen 26 mg/dL (9-16); Calcium 8.5 mg/dL (8.4-10.2); Carbon Dioxide 38 mmol/L (22-29); Chloride 94 mmol/L (96-108); Creatinine Clr Calc Pharmacy 30.3; Estimated Glomerular Filt Rate > 60; Glucose Random 101 mg/dL (60-115); Potassium 4.7 mmol/l (3.3-5.1); Sodium 141 mmol/L (135-145); Total Protein 6.5 g/dL (6.5-8.0)
[2020-10-21 17:53] LABS: B Type Natriuretic Peptide 69 pg/mL (<100); Troponin-I High Sensitivity 6.9 ng/L (<3.5-17.0)
[2020-10-21 17:57] LABS: Band Neutrophils Percent 2 % (3-5); Monocytes Absolute Manual 0.2 X10*3/uL (0.0-1.2); Monocytes Percent Manual 2 % (2-11); Neutrophils Absolute Manual 11.9 X10*3/uL (2.2-7.9); Neutrophils Percent Manual 96 % (45-73)
[2020-10-21 17:58] LABS: Platelet Estimate NORMAL (NORMAL); Platelet Morphology Comment NORMAL; RBC Morphology NORMAL
[2020-10-21 18:25] LABS: Influenza A PCR NEGATIVE (Negative); Influenza B PCR NEGATIVE (Negative); Resp Syncy Virus RNA Qual PCR NEGATIVE (Negative); SARS COV2 PCR INHOUSE NEGATIVE (Negative)
[2020-10-21 18:56] VITALS: BP 101/29; PULSE 92; RESP 14; TEMP 37.1; O2SAT 98
[2020-10-21 19:05] VITALS: BP 101/35; PULSE 90
[2020-10-21 19:25] VITALS: BP 98/70; PULSE 75
[2020-10-21 20:07] LABS: Appearance Urine CLEAR; Color Urine YELLOW; Glucose Urine UA NEG (NEG); Leukocyte Esterase Urine NEG (NEG); Nitrite Urine NEG (NEG); Urine Blood 1+ (NEG); Urine Ketones NEG (NEG); Urine Protein 1+ MG/DL (NEG-TRACE)
[2020-10-21 20:10] LABS: OBS Int Ctl Valid YES; OBS1 POS (NEG)
[2020-10-21 20:15] LABS: Bacteria Urine 1+ /LPF; WBC Urine 0 /HPF (0-4)
--- NOTE | 2020-10-21 20:37 | PC.NURSE ---
PT'S DAUGHTER JUNIOR CALLS AT THIS TIME FOR UPDATE. RN INDISPOSED AND JUNIOR LEFT CALL BACK NUMBER [phone]
[2020-10-21] MEDS: Acetaminophen 325 MG TABLET 975 MG PO (20:55)
--- NOTE | 2020-10-21 21:06 | PC.NURSE ---
pt medicated per order
--- NOTE | 2020-10-21 21:26 | PC.NURSE ---
spoke with daughter Susan.
[2020-10-21 22:05] VITALS: BP 97/40; PULSE 79; RESP 11; TEMP 36.7; O2SAT 99
--- NOTE | 2020-10-21 22:33 | PC.NURSE ---
As per patient, no further information to be given to daughters only son.
[2020-10-21] MEDS: Azithromycin 500 MG TABLET PO (22:47)
[2020-10-22] VITALS (17 sets, daily range): BP systolic 93–108; BP diastolic 34–51; PULSE 70–94; RESP 15–18; TEMP 36.3–36.8; O2SAT 94–100; BMI 11.3
--- NOTE | 2020-10-22 00:23 | PC.NURSE ---
Pt resting in bed at this time, awake and alert, speaking full sentences. Pt denies SOB at this time, c/o chronic back pain due to L3 fusion. VSS. Awaiting bed assignment. Call duran within reach, continue to monitor.
--- NOTE | 2020-10-22 00:32 | PC.NURSE ---
This RN calling [facility], [facility] unable to take report at this time.
--- NOTE | 2020-10-22 01:38 | P.HPHOSP_ITS ---
History of Present Illness Date of Service: 10/21/20 Chief Complaint: Weakness, This is a 74-year-old female with past medical history of AFib, COPD, anxiety who presents to the hospital complaints of progressive shortness of breath. Patient is also complaining of increased cough and sputum production. She has n o fever but has some chills, she has stabbing chest pain that occurred few days ago but is no longer present, she is constipated for more than a week, patient has no recent travel, no recent sick contacts. She has no headache, change in vision, abdominal pain nausea or vomiting, no lower extremity, no urinary symptoms. Of note patient was discharged in September after be worked up for acute anemia. At that time hemoccult was negative and patient was supposed to follow-up with Hematology-Oncology outpatient pain On arrival to the ED hemodynamically stable no significant abnormal vitals excep t for a blood pressure of 92/35 other vitals within normal range blood pressure slightly better Labs are significant for hemoglobin of 7.5 which is around the same as the discharge in September, sodium of 141, chloride of 94, BUN of 26, total bili of 2, direct bili of 0.8, UA positive for protein some blood, negative COVID-19, Chest x-ray shows COPD with no acute intrathoracic disease. Patient was manually disimpacted in the ED on stool was Hemoccult positive. Past medical history: COPD, AFib Past surgical history: Cholecystectomy, total hysterectomy Family history: Denies Social history: Comes from home, smokes about 1 pack every 2 days, denies alcohol Review of Systems Review of Systems: Yes all other systems are reviewed and are negative Neurologic: Reports as per HPI and Reports Abnormal speech present [facility] Medical History Atrial fibrillation Chronic respiratory failure with hypoxia COPD (chronic obstructive pulmonary disease) Depression GERD (gastroesophageal reflux disease) Normocytic anemia Symptomatic anemia Vertigo Social History Household Members: Family Housing: House Alcohol intake: never Smoking Status: Current every day smoker Tobacco Type: Cigarette Packs Per Day: 0.5 Cigarettes Per Day: 10.0 Smoked in Last 30 Days: Yes Second Hand Smoke Exposure: No Use of substances other than those prescribed or required for medical reasons: No Advance Directives: No Advance Directives Information Provided: No Do you have thoughts of harming others: None Do you have a plan to hurt others: No Plan Recently lost weight without trying: Unsure service: No Current occupational status: retired [employer] Allergies Allergy/AdvReac Type Severity Reaction Status Date / Time No Known Allergies Allergy Verified 10/22/20 02:38 [No Known Allergies*] Home Medications Medication Instructions Recorded Confirmed Type Combivent Respimat 1 puff INHALATION QID PRN 08/13/20 10/21/20 History albuterol sulfate 1 inh INHALATION Q4-6H PRN 08/13/20 10/21/20 History buspirone 5 mg PO TID 08/13/20 10/21/20 History meclizine 12.5 mg PO TID PRN 08/13/20 10/21/20 History metoprolol tartrate 12.5 mg PO BID 08/13/20 10/21/20 History oxycodone-acetaminophen 1 tab PO Q6H PRN 08/13/20 10/21/20 History Eliquis 2.5 mg PO BID 10/01/20 10/21/20 History Trelegy Ellipta 1 inh INHALATION DAILY 10/01/20 10/21/20 History lorazepam 0.5 mg PO Q8H PRN 10/01/20 10/21/20 History zolpidem 5 mg PO BEDTIME PRN 10/01/20 10/21/20 History wooajdxmxqu-oqvztkbnc-nhdbcmug 1 puff PO DAILY 10/21/20 10/21/20 History [Trelegy Ellipta] prednisone 10 mg PO DAILY 10/21/20 10/21/20 History warfarin 1 - 2 tab PO DAILY 10/21/20 10/21/20 History Physical Exam Vital Signs and Narrative: Vital Signs: Last Vital Signs Temp 97.6 F 10/22/20 01:11 Pulse 75 10/22/20 00:19 Resp 18 10/22/20 01:11 BP 98/46 L 10/22/20 01:11 Pulse Ox 100 10/22/20 01:11 Body Mass Index 12.2 Const: Other: Appears significantly cachectic General: cooperative and no acute distress Orientation/consciousness: patient oriented x3 Eyes: General: appearance normal, both eyes and all related structures Pupils: Equal, round and reactive pupils present Resp: Effort & Inspection: normal respiratory effort and able to speak in complete sentences Auscultation: clear to auscultation bilaterally Cardio: Rate: regular rate Rhythm: regular rhythm GI: Palpation (GI): Soft to palpation Auscultation: normal bowel sounds Skin: General skin exam: no rashes or lesions noted Neuro: General: patient oriented x3 Cranial nerves: Yes Equal, round and reactive pupils present Cognition (Neuro): normal cognition Speech: Abnormal speech present Extrem: General: Yes normal to inspection and Yes no pedal edema Results Labs CBC and Chem 7: 10/21/20 17:03 10/21/20 17:03 Labs: Laboratory Results - last 24 hr 10/21/20 10/21/20 10/21/20 17:03 17:03 17:03 MCV 102.3 H MCH 34.7 H MCHC 33.9 RDW 19.5 H Plt Count 259 D MPV 11.2 Immature Gran % (Auto) Cancelled Neut % (Auto) Cancelled Lymph % (Auto) Cancelled [place] % (Auto) Cancelled Eos % (Auto) Cancelled Baso % (Auto) Cancelled Lymph # (Auto) Cancelled [place] # (Auto) Cancelled Eos # (Auto) Cancelled Baso # (Auto) Cancelled Abs Immat Gran (auto) Cancelled Absolute Neuts (auto) Cancelled Absolute Nucleated RBC 0.000 Nucleated RBC % (auto) 0.0 Neutrophils % (Manual) 96 H Band Neutrophils % 2 L Monocytes % (Manual) 2 Abs Neuts (Manual) 11.9 H Monocytes # (Manual) 0.2 Platelet Estimate NORMAL Plt Morphology Comment NORMAL RBC Morphology NORMAL PT 14.8 H INR 1.2 H APTT 33.6 Anion Gap 14 Estim Creat Clear Calc 30.3 Estimated GFR > 60 Random Glucose 101 Lactic Acid Calcium 8.5 D Total Bilirubin 2.0 H Direct Bilirubin 0.8 H AST 18 D ALT 9 Alkaline Phosphatase 77 D Troponin I High Sens B-Natriuretic Peptide Total Protein 6.5 Albumin 4.1 Urine Color Urine Appearance Urine pH Ur Specific Center [place] Urine Protein Urine Glucose (UA) Urine Ketones Urine Blood Urine Nitrite Ur Leukocyte Esterase Urine RBC Urine WBC Ur Squamous Epith Cells Urine Bacteria Stool Occult Blood Coronavirus (PCR) Influenza Type A (PCR) Influenza Type B (PCR) RSV RNA Qual (PCR) Blood Type Antibody Screen 10/21/20 10/21/20 10/21/20 17:03 17:03 17:03 MCV MCH MCHC RDW Plt Count MPV Immature Gran % (Auto) Neut % (Auto) Lymph % (Auto) [place] % (Auto) Eos % (Auto) Baso % (Auto) Lymph # (Auto) [place] # (Auto) Eos # (Auto) Baso # (Auto) Abs Immat Gran (auto) Absolute Neuts (auto) Absolute Nucleated RBC Nucleated RBC % (auto) Neutrophils % (Manual) Band Neutrophils % Monocytes % (Manual) Abs Neuts (Manual) Monocytes # (Manual) Platelet Estimate Plt Morphology Comment RBC Morphology PT INR APTT Anion Gap Estim Creat Clear Calc Estimated GFR Random Glucose Lactic Acid 0.9 Calcium Total Bilirubin Direct Bilirubin AST ALT Alkaline Phosphatase Troponin I High Sens 6.9 B-Natriuretic Peptide 69 Total Protein Albumin Urine Color Urine Appearance Urine pH Ur Specific Center [place] Urine Protein Urine Glucose (UA) Urine Ketones Urine Blood Urine Nitrite Ur Leukocyte Esterase Urine RBC Urine WBC Ur Squamous Epith Cells Urine Bacteria Stool Occult Blood Coronavirus (PCR) NEGATIVE Influenza Type A (PCR) NEGATIVE Influenza Type B (PCR) NEGATIVE RSV RNA Qual (PCR) NEGATIVE Blood Type Antibody Screen 10/21/20 10/21/20 10/21/20 19:04 19:24 23:39 MCV MCH MCHC RDW Plt Count MPV Immature Gran % (Auto) Neut % (Auto) Lymph % (Auto) [place] % (Auto) Eos % (Auto) Baso % (Auto) Lymph # (Auto) [place] # (Auto) Eos # (Auto) Baso # (Auto) Abs Immat Gran (auto) Absolute Neuts (auto) Absolute Nucleated RBC Nucleated RBC % (auto) Neutrophils % (Manual) Band Neutrophils % Monocytes % (Manual) Abs Neuts (Manual) Monocytes # (Manual) Platelet Estimate Plt Morphology Comment RBC Morphology PT INR APTT Anion Gap Estim Creat Clear Calc Estimated GFR Random Glucose Lactic Acid Calcium Total Bilirubin Direct Bilirubin AST ALT Alkaline Phosphatase Troponin I High Sens B-Natriuretic Peptide Total Protein Albumin Urine Color YELLOW Urine Appearance CLEAR Urine pH 7.0 Ur Specific Center [place] 1.010 Urine Protein 1+ H Urine Glucose (UA) NEG Urine Ketones NEG Urine Blood 1+ H Urine Nitrite NEG Ur Leukocyte Esterase NEG Urine RBC 1-4 Urine WBC 0 Ur Squamous Epith Cells NONE Urine Bacteria 1+ Stool Occult Blood POS Coronavirus (PCR) Influenza Type A (PCR) Influenza Type B (PCR) RSV RNA Qual (PCR) Blood Type O Positive Antibody Screen POSITIVE Imaging Radiologist's Impressions: Impressions Chest X-Ray 10/21/20 16:12 IMPRESSION: COPD with no acute intrathoracic disease. Assessment and Plan (1) Anemia: Qualifiers: Anemia type: unspecified type Qualified Code(s): D64.9 - Anemia, unspecified Status: Acute (2) Acute exacerbation of COPD with asthma: Status: Acute (3) GI bleed: Status: Acute (4) Atrial fibrillation: Status: Acute (5) Anticoagulated on Coumadin: Status: Acute This is a 74-year-old female with past medical history of COPD who presents to the hospital with shortness of breath found to have anemia, and COPD exacerbation. # dyspnea - most likely secondary to COPD exacerbation complicated by acute anemia - has hemoglobin of 7.5, has exertional dyspnea, increased sputum production increased cough - has mild leukocytosis, but otherwise afebrile Plan: - will transfuse 1 unit of PRBC, start Solu-Medrol 40 IV b.i.d., DuoNeb p.r.n., and scheduled - O2 as required - monitor volume status - received azithromycin in the ED, will continue azithromycin for COPD exacerbation # COPD exacerbation - has exertional dyspnea, increased cough and sputum production - active smoker Plan: - azithromycin, 40 IV b.i.d. of Solu-Medrol, Solu-Medrol p.r.n. and scheduled #microcytic anemia - on previous admission patient was found to be anemic and was transfused 1 unit of PRBC - workup was not conclusive on previous admission and patient was supposed to follow-up with Hematology-Oncology outpatient. - today her Hemoccult positive, and patient is on Eliquis for history of AFib Plan: - given her dyspnea, patient will be transfused 1 unit of PRBC -will stop Eliquis, start her on PPI 40 IV b.i.d., - NPO - will consult Gastroenterology for possible endoscopy/colonoscopy - follow CBC, will obtain B12 and folic acid # AFib - patient on Eliquis and metoprolol - continue metoprolol hold Eliquis in the setting of acute bleed DVT prophylaxis: SCDs
[2020-10-22] MEDS: cefTRIAXone sodium 1 GM in 0.9 % Sodium Chloride 50 ML IV (01:39)
[2020-10-22] MEDS: 0.9 % Sodium Chloride Flush 3 ML SYRINGE IVFLUSH ×4 (01:40→20:41)
[2020-10-22] MEDS: Pantoprazole Sodium 40 MG/10 ML VIAL IVPUSH ×2 (05:32→16:33)
[2020-10-22 07:43] LABS: Anion Gap 15 (12-20); Blood Urea Nitrogen 22 mg/dL (9-16); Carbon Dioxide 33 mmol/L (22-29); Chloride 98 mmol/L (96-108); Creatinine Clr Calc Pharmacy 34.3; Estimated Glomerular Filt Rate > 60; Glucose Random 89 mg/dL (60-115); Potassium 4.6 mmol/l (3.3-5.1); Sodium 141 mmol/L (135-145)
--- NOTE | 2020-10-22 07:56 | P.CDIC_ITS ---
CDI Concurrent Query Service Date: 10/22/20 Documentation Clarification: Please clarify if you are treating a proba ble/suspected/likely or confirmed: Protein calorie malnutrition, mild, moderate or severe Cachectic Please specify if known or other PLEASE DO NOT DELETE/MODIFY EXISTING CONTENT Additional information is needed in order to code to the highest accuracy and appropriate Severity of Illness (SOI). Please clarify the information noted below in your progress notes and discharge summary. Risk Factors/Clinical Indicators/Treatments BMI 12.2 cachectic, anemia, copd exacerbation, current smoker, weakness, BP 97/40 CDS: Payton Conrad CCS, CDIS Contact Number: [phone] Please Review the information above and exercise your independent professional judgment in responding to the query. If you concur, pleas document in the PROGRESS NOTES and DISCHARGE SUMMARY. If you do not agree with the query, please document in the query above. THIS QUERY IS PART OF THE PERMANENT MEDICAL RECORD
[2020-10-22 07:57] LABS: Basophils Percent Auto 0.1 % (0-2); Eosinophils Percent Auto 0.1 % (0-4); Hematocrit 26.4 % (37-47); Hemoglobin 9.1 g/dl (12.0-16.0); Imm Gran Abs Auto 0.12 X10*3/uL (0.00-0.03); Imm Gran Pct Auto 1.2 % (0.0-0.4); Lymphocytes Absolute Auto 0.2 X10*3/uL (1.2-4.9); Lymphocytes Percent Auto 1.9 % (20-40); MANUAL DIFF FLAG SCAN; Mean Corpuscular HGB Conc 34.5 g/dl (31.0-35.0); Mean Corpuscular Volume 101.5 fL (80-98); Mean Platelet Volume 11.7 fL (9.4-12.3); Monocytes Absolute Auto 0.1 X10*3/uL (0.1-1.2); Neutrophils Absolute Auto 9.7 X10*3/uL (2.0-8.3); Neutrophils Percent Auto 95.7 % (45-73); Platelet Count 186 X10*3/uL (160-400); Red Cell Distribution Width 17.7 % (11.0-16.0); SCAN SMEAR FLAG 1; White Blood Count 10.2 X10*3/uL (4.8-10.8)
[2020-10-22 09:07] LABS: Folate 5.6 ng/mL (> or = 4.0); Vitamin B12 726 pg/mL (200-900)
--- NOTE | 2020-10-22 09:10 | P.CDIC_ITS ---
CDI Concurrent Query Service Date: 10/22/20 Documentation Clarification: Please clarify if you are treating a proba ble/suspected/likely or confirmed: Consistency: SIRS poa Please specify if known or other PLEASE DO NOT DELETE/MODIFY EXISTING CONTENT Additional information is needed in order to code to the highest accuracy and appropriate Severity of Illness (SOI). Please clarify the information noted below in your progress notes and discharge summary. Risk Factors/Clinical Indicators/Treatments Ed: Course of care: patient met SIRS criteria but not sepsis with WBC 12.1. CDS: Payton Conrad CCS, CDIS Contact Number: [phone]. [phone] Please Review the information above and exercise your independent professional judgment in responding to the query. If you concur, pleas document in the PROGRESS NOTES and DISCHARGE SUMMARY. If you do not agree with the query, please document in the query above. THIS QUERY IS PART OF THE PERMANENT MEDICAL RECORD
[2020-10-22] MEDS: Albuterol/Iprat 2.5/0.5MG 3 ML AMPUL.NEB INHALE ×4 (09:18→19:57)
[2020-10-22] MEDS: busPIRone HCl 5 MG TABLET PO ×3 (10:24→20:40)
[2020-10-22 10:25] LABS: SLIDE REVIEW VERIFIED
--- NOTE | 2020-10-22 11:19 | MHC.CM.PN ---
CM met with patient at the bedside who reports she amb with a walker and lives with her son who helps patient with her IADL's. Patient does have a HCP son Thien [phone] and a copy is on file. Discussed discharge plan, home with resumption of services from [facility]. referral made via [facility]. [facility] will provide transport. IMM addressed. CM will continue to follow patient for discharge needs.
--- NOTE | 2020-10-22 11:50 | MHC.CLN ---
PT IS SEVERELY MALNOURISHED WILL ADD ENSURE BID WHEN DIET ADVANCES SEE ALSO CLINICAL NUTRITION ASSESSMENT
--- NOTE | 2020-10-22 13:36 | CONS_ITS ---
DATE OF SERVICE: 10/22/2020 REFERRING PHYSICIAN: Teresa Alarcon REASON FOR CONSULTATION: Anemia and Hemoccult-positive stools. HISTORY OF PRESENT ILLNESS: The patient is a pleasant 74-year-old woman, who was admitted to the hospital after presenting to the emergency room yesterday with complaints of shortness of breath, cough, and sputum production. She was noted to be anemic with a hematocrit of 22.1, slightly lower than her discharge hematocrit from September of 23.7. She was transfused 1 unit of packed red blood cells with improvement. She was noted to have stool that was Hemoccult positive and required manual disimpaction for constant rectal obstipation. She was hospitalized in September with anemia as well and Hemoccult negative stools and required 2 units of packed red blood cells and transfusion at that time. She reports stools have been black, but formed at home over the past week. She denies any abdominal pain. She does not use large doses of NSAIDs and denies a prior history of peptic ulcer disease. She does smoke. She has not undergone previous evaluation with colonoscopy for fear of the procedure. PAST MEDICAL HISTORY: 1. Atrial fibrillation, anticoagulated with Eliquis, last dose yesterday. 2. COPD. 3. Depression. 4. Gastroesophageal reflux disease. 5. Anemia. 6. Vertigo. CURRENT MEDICATIONS: Her current medication list is reviewed in the chart. ALLERGIES: THERE ARE NONE REPORTED. FAMILY HISTORY: This is reviewed with the patient. It is negative for GI malignancy. SOCIAL HISTORY: She continues to smoke cigarettes approximately 2 to 4 per day by her report. She denies alcohol use. REVIEW OF SYSTEMS: SKIN: No pruritus. HEENT: Negative. CARDIOPULMONARY: She denies shortness of breath currently. She did have this on admission. GASTROINTESTINAL: As above. GENITOURINARY: Negative. NEUROPSYCHIATRIC: Negative. PHYSICAL EXAMINATION: GENERAL: Shows a pleasant, elderly female, lying in bed. VITAL SIGNS: Stable. SKIN: Anicteric. HEENT: Temporal wasting. Oxygen tubing is in place below the nares. NECK: Without lymphadenopathy or thyromegaly. LUNGS: Clear with decreased breath sounds. HEART: Regular rate and rhythm. S1, S2. No murmur. ABDOMEN: Soft. No focal masses or tenderness. Bowel sounds are present. No organomegaly is noted. EXTREMITIES: Without edema. LABORATORY DATA: Reviewed. She did have a CT scan of the abdomen and pelvis on October 01, which showed no GI tract abnormalities. IMPRESSION: Anemia with Hemoccult-positive stools. She has not had any silvano melena by report, but is requiring blood transfusions. I did discuss with her upper endoscopy and colonoscopy for evaluation to rule out any GI source for blood loss and Hemoccult-positive stools. We discussed that she is at higher risk because of her underlying COPD, for which she is oxygen-dependent at home. She understands risks and benefits and agrees to proceed. This will be scheduled for tomorrow. Thanks for asking me to see her. I will follow her in the hospital with you. MD JOSEPH Pearce/CYDNEY / [id number]
[2020-10-22] MEDS: PEG 3350/Na Sulf,Bicarb,Cl/KCL 4,000 ML SOLN.RECON 4000 ML PO (14:26)
--- NOTE | 2020-10-22 14:47 | P.PNIM_ITS ---
Subjective Subjective Date of Service: 10/22/20 Interval History: no abd pain no hematochezia or melena no prior C-scope endorses dyspnea, lightheadedness transfused 1u pRBCs Physical Exam Vital Signs: Vital Signs: Last Vital Signs Temp 98.3 F 10/22/20 12:00 Pulse 82 10/22/20 12:38 Resp 16 10/22/20 12:00 BP 101/45 L 10/22/20 12:00 Pulse Ox 98 10/22/20 12:00 Body Mass Index 11.3 Gen: in no acute distress, cachectic HEENT: pale conjunctivae, moist mucus membranes Neck: supple Lungs: prolonged expiratory phase Heart: regular rate and rhythm, no murmurs Abd: soft, non-tender, non-distended Ext: no edema Skin: warm/well-perfused Neuro: alert and oriented x3, no focal findings Psych: appropriate affect Objective Data Current Medications Generic Name Dose Route Start Last Admin Trade Name Freq PRN Reason Stop Dose Admin Acetaminophen 650 mg 10/22/20 00:36 Acetaminophen 325 Mg Tablet PO Q6H PRN Pain, Mild (Pain Scale 1-3) Albuterol/Ipratropium 3 ml 10/22/20 08:00 10/22/20 12:35 Albuterol/Iprat 2.5/0.5mg 3 Ml Ampul.Neb INHALE 3 ml RQ4H WHILE AWAKE MARCOS Administration Albuterol/Ipratropium 3 ml 10/22/20 03:10 Albuterol/Iprat 2.5/0.5mg 3 Ml Ampul.Neb INHALE RQ4H PRN Shortness of Breath/Wheezing Azithromycin 500 mg 10/22/20 20:00 Azithromycin 500 Mg Tablet PO Q24H MARCOS Buspirone HCl 5 mg 10/22/20 09:00 10/22/20 14:26 Buspirone Hcl 5 Mg Tablet PO 5 mg TID MARCOS Administration Docusate Sodium 100 mg 10/22/20 00:36 Docusate Sodium 100 Mg Capsule PO DAILY PRN Constipation Lorazepam 0.5 mg 10/22/20 00:36 Lorazepam 0.5 Mg Tablet PO Q8H PRN anxiety Meclizine HCl 12.5 mg 10/22/20 00:36 Meclizine Hcl 12.5 Mg Tablet PO TID PRN Dizziness Methylprednisolone Sodium Succinate 40 mg 10/22/20 00:36 10/22/20 14:26 Methylprednisolone Sod Succ/Pf 40 Mg/Ml Vial IVPUSH 40 mg Q12H MARCOS Administration Metoprolol Tartrate 12.5 mg 10/22/20 09:00 10/22/20 10:24 Metoprolol Tartrate 25 Mg Tablet PO Not Given BID [facility] Protocol Ondansetron HCl 4 mg 10/22/20 00:36 Ondansetron Hcl 4 Mg/2 Ml Vial IVPUSH Q8H PRN Nausea and Vomiting Oxycodone HCl 10 mg 10/22/20 02:06 Oxycodone Hcl Immed Release 5 Mg Tablet PO Q6H PRN Mild Pain (Scale Score 1-4) Pantoprazole Sodium 40 mg 10/22/20 06:30 10/22/20 05:32 Pantoprazole Sodium 40 Mg/10 Ml Vial IVPUSH 40 mg BID@0630,1630 [facility] Administration Pharmacy Consult 1 each 10/21/20 21:37 Consult Rx Perform Med Rec MISCELLANE ONCE PRN Consult order Polyethylene Glycol 17 gm 10/22/20 09:00 10/22/20 10:24 Polyethylene Glycol 3350 17 Gm Powd.Pack PO Not Given DAILY [facility] Sodium Chloride 3 ml 10/22/20 00:36 10/22/20 10:24 0.9 % Sodium Chloride Flush 3 Ml Syringe IVFLUSH 3 ml QSHIFT [facility] Administration Zolpidem Tartrate 5 mg 10/22/20 00:36 Zolpidem Tartrate 5 Mg Tablet PO BEDTIME PRN insomnia Labs CBC & Chem 7: 10/22/20 06:12 10/22/20 06:12 Labs: Laboratory Results - last 24 hr 10/21/20 10/21/20 10/21/20 17:03 17:03 17:03 WBC 12.1 H RBC 2.16 L Hgb 7.5 L Hct 22.1 L MCV 102.3 H MCH 34.7 H MCHC 33.9 RDW 19.5 H Plt Count 259 D MPV 11.2 Immature Gran % (Auto) Cancelled Neut % (Auto) Cancelled Lymph % (Auto) Cancelled [place] % (Auto) Cancelled Eos % (Auto) Cancelled Baso % (Auto) Cancelled Lymph # (Auto) Cancelled [place] # (Auto) Cancelled Eos # (Auto) Cancelled Baso # (Auto) Cancelled Abs Immat Gran (auto) Cancelled Absolute Neuts (auto) Cancelled Absolute Nucleated RBC 0.000 Nucleated RBC % (auto) 0.0 Neutrophils % (Manual) 96 H Band Neutrophils % 2 L Monocytes % (Manual) 2 Abs Neuts (Manual) 11.9 H Monocytes # (Manual) 0.2 Platelet Estimate NORMAL Plt Morphology Comment NORMAL RBC Morphology NORMAL Smear Tech's Comments PT 14.8 H INR 1.2 H APTT 33.6 Sodium 141 Potassium 4.7 D Chloride 94 L Carbon Dioxide 38 H Anion Gap 14 BUN 26 H D Creatinine 0.77 Estim Creat Clear Calc 30.3 Estimated GFR > 60 Random Glucose 101 Lactic Acid Calcium 8.5 D Total Bilirubin 2.0 H Direct Bilirubin 0.8 H AST 18 D ALT 9 Alkaline Phosphatase 77 D Troponin I High Sens B-Natriuretic Peptide Total Protein 6.5 Albumin 4.1 Vitamin B12 Folate Urine Color Urine Appearance Urine pH Ur Specific [place] Urine Protein Urine Glucose (UA) Urine Ketones Urine Blood Urine Nitrite Ur Leukocyte Esterase Urine RBC Urine WBC Ur Squamous Epith Cells Urine Bacteria Stool Occult Blood Coronavirus (PCR) Influenza Type A (PCR) Influenza Type B (PCR) RSV RNA Qual (PCR) Blood Type Antibody Screen Antibody Identification Crossmatch Crossmatch ([facility]) 10/21/20 10/21/20 10/21/20 17:03 17:03 17:03 WBC RBC Hgb Hct MCV MCH MCHC RDW Plt Count MPV Immature Gran % (Auto) Neut % (Auto) Lymph % (Auto) [place] % (Auto) Eos % (Auto) Baso % (Auto) Lymph # (Auto) [place] # (Auto) Eos # (Auto) Baso # (Auto) Abs Immat Gran (auto) Absolute Neuts (auto) Absolute Nucleated RBC Nucleated RBC % (auto) Neutrophils % (Manual) Band Neutrophils % Monocytes % (Manual) Abs Neuts (Manual) Monocytes # (Manual) Platelet Estimate Plt Morphology Comment RBC Morphology Smear Tech's Comments PT INR APTT Sodium Potassium Chloride Carbon Dioxide Anion Gap BUN Creatinine Estim Creat Clear Calc Estimated GFR Random Glucose Lactic Acid 0.9 Calcium Total Bilirubin Direct Bilirubin AST ALT Alkaline Phosphatase Troponin I High Sens 6.9 B-Natriuretic Peptide 69 Total Protein Albumin Vitamin B12 Folate Urine Color Urine Appearance Urine pH Ur Specific [place] Urine Protein Urine Glucose (UA) Urine Ketones Urine Blood Urine Nitrite Ur Leukocyte Esterase Urine RBC Urine WBC Ur Squamous Epith Cells Urine Bacteria Stool Occult Blood Coronavirus (PCR) NEGATIVE Influenza Type A (PCR) NEGATIVE Influenza Type B (PCR) NEGATIVE RSV RNA Qual (PCR) NEGATIVE Blood Type Antibody Screen Antibody Identification Crossmatch Crossmatch ([facility]) 10/21/20 10/21/20 10/21/20 19:04 19:24 23:39 WBC RBC Hgb Hct MCV MCH MCHC RDW Plt Count MPV Immature Gran % (Auto) Neut % (Auto) Lymph % (Auto) [place] % (Auto) Eos % (Auto) Baso % (Auto) Lymph # (Auto) [place] # (Auto) Eos # (Auto) Baso # (Auto) Abs Immat Gran (auto) Absolute Neuts (auto) Absolute Nucleated RBC Nucleated RBC % (auto) Neutrophils % (Manual) Band Neutrophils % Monocytes % (Manual) Abs Neuts (Manual) Monocytes # (Manual) Platelet Estimate Plt Morphology Comment RBC Morphology Smear Tech's Comments PT INR APTT Sodium Potassium Chloride Carbon Dioxide Anion Gap BUN Creatinine Estim Creat Clear Calc Estimated GFR Random Glucose Lactic Acid Calcium Total Bilirubin Direct Bilirubin AST ALT Alkaline Phosphatase Troponin I High Sens B-Natriuretic Peptide Total Protein Albumin Vitamin B12 Folate Urine Color YELLOW Urine Appearance CLEAR Urine pH 7.0 Ur Specific [place] 1.010 Urine Protein 1+ H Urine Glucose (UA) NEG Urine Ketones NEG Urine Blood 1+ H Urine Nitrite NEG Ur Leukocyte Esterase NEG Urine RBC 1-4 Urine WBC 0 Ur Squamous Epith Cells NONE Urine Bacteria 1+ Stool Occult Blood POS Coronavirus (PCR) Influenza Type A (PCR) Influenza Type B (PCR) RSV RNA Qual (PCR) Blood Type O Positive Antibody Screen POSITIVE Antibody Identification Anti-Fya Crossmatch See Detail Crossmatch ([facility]) See Detail 10/22/20 10/22/20 10/22/20 06:12 06:12 06:12 WBC 10.2 RBC 2.60 L D Hgb 9.1 L D Hct 26.4 L MCV 101.5 H MCH 35.0 H MCHC 34.5 RDW 17.7 H Plt Count 186 D MPV 11.7 Immature Gran % (Auto) 1.2 H Neut % (Auto) 95.7 H Lymph % (Auto) 1.9 L [place] % (Auto) 1.0 L Eos % (Auto) 0.1 Baso % (Auto) 0.1 Lymph # (Auto) 0.2 L [place] # (Auto) 0.1 Eos # (Auto) 0.0 Baso # (Auto) 0.0 Abs Immat Gran (auto) 0.12 H Absolute Neuts (auto) 9.7 H Absolute Nucleated RBC 0.000 Nucleated RBC % (auto) 0.0 Neutrophils % (Manual) Band Neutrophils % Monocytes % (Manual) Abs Neuts (Manual) Monocytes # (Manual) Platelet Estimate Plt Morphology Comment RBC Morphology Smear Tech's Comments VERIFIED PT INR APTT Sodium 141 Potassium 4.6 Chloride 98 Carbon Dioxide 33 H Anion Gap 15 BUN 22 H Creatinine 0.63 Estim Creat Clear Calc 34.3 Estimated GFR > 60 Random Glucose 89 Lactic Acid Calcium 8.0 L Total Bilirubin Direct Bilirubin AST ALT Alkaline Phosphatase Troponin I High Sens B-Natriuretic Peptide Total Protein Albumin Vitamin B12 726 Folate 5.6 Urine Color Urine Appearance Urine pH Ur Specific [place] Urine Protein Urine Glucose (UA) Urine Ketones Urine Blood Urine Nitrite Ur Leukocyte Esterase Urine RBC Urine WBC Ur Squamous Epith Cells Urine Bacteria Stool Occult Blood Coronavirus (PCR) Influenza Type A (PCR) Influenza Type B (PCR) RSV RNA Qual (PCR) Blood Type Antibody Screen Antibody Identification Crossmatch Crossmatch ([facility]) Assessment and Plan (1) GI bleed: Status: Acute (2) Acute exacerbation of COPD with asthma: Status: Acute Assessment and Plan: hospital d#2 74yo F with COPD, recent admission for anemia during which she was FOBT-negative admitted for symptomatic anemia, FOBT-positive stool, and COPD exacerbation # anemia due to GI blood loss - GI consulted, plan EGD and C-scope tomorrow - empiric IV PPI BID - hold apixaban - Hb responded appropriately to 1u pRBCs transfused # COPD exacerbation - steroids, prn bronchodilators, azithromycin d#2 # pAF - continue metoprolol (held today for soft BP) - hold apixaban due to GI bleed # severe protein-calorie malnutrition - supplements when taking PO
[2020-10-22] MEDS: Acetaminophen 325 MG TABLET 650 MG PO (17:37)
[2020-10-22] MEDS: Azithromycin 500 MG TABLET PO (20:40)
[2020-10-23] VITALS (16 sets, daily range): BP systolic 85–129; BP diastolic 32–57; PULSE 62–100; RESP 14–20; TEMP 36.3–37.4; O2SAT 92–100; BMI 12.0
[2020-10-23] MEDS: Pantoprazole Sodium 40 MG/10 ML VIAL IVPUSH (05:25)
[2020-10-23 06:35] LABS: Hemoglobin 8.4 g/dl (12.0-16.0); Imm Gran Abs Auto 0.05 X10*3/uL (0.00-0.03); Imm Gran Pct Auto 0.6 % (0.0-0.4); Lymphocytes Absolute Auto 0.1 X10*3/uL (1.2-4.9); Lymphocytes Percent Auto 0.9 % (20-40); MANUAL DIFF FLAG SCAN; Mean Corpuscular HGB Conc 33.6 g/dl (31.0-35.0); Mean Corpuscular Hemoglobin 34.3 pg (27.0-33.0); Mean Platelet Volume 11.4 fL (9.4-12.3); Monocytes Absolute Auto 0.1 X10*3/uL (0.1-1.2); Monocytes Percent Auto 1.3 % (2-11); Neutrophils Absolute Auto 7.6 X10*3/uL (2.0-8.3); Neutrophils Percent Auto 97.2 % (45-73); Platelet Count 167 X10*3/uL (160-400); Red Blood Count 2.45 X10*6/uL (4.20-5.50); Red Cell Distribution Width 17.6 % (11.0-16.0); SCAN SMEAR FLAG 1; White Blood Count 7.9 X10*3/uL (4.8-10.8)
[2020-10-23 06:39] LABS: Prothrombin Time 11.7 SEC (10.8-13.0)
[2020-10-23 06:52] LABS: Anion Gap 13 (12-20); Blood Urea Nitrogen 17 mg/dL (9-16); Calcium 7.8 mg/dL (8.4-10.2); Carbon Dioxide 36 mmol/L (22-29); Chloride 96 mmol/L (96-108); Creatinine Clr Calc Pharmacy 38.6; Estimated Glomerular Filt Rate > 60; Glucose Random 110 mg/dL (60-115); Potassium 4.1 mmol/l (3.3-5.1); Sodium 141 mmol/L (135-145)
[2020-10-23] MEDS: 0.9 % Sodium Chloride Flush 3 ML SYRINGE IVFLUSH ×4 (07:38→20:51)
[2020-10-23] MEDS: busPIRone HCl 5 MG TABLET PO ×3 (07:40→20:16)
[2020-10-23] MEDS: LORazepam 0.5 MG TABLET PO (07:40)
[2020-10-23] MEDS: oxyCODONE HCl Immed Release 5 MG TABLET 10 MG PO ×3 (07:40→20:16)
[2020-10-23 07:54] LABS: SLIDE REVIEW VERIFIED
[2020-10-23] MEDS: Albuterol/Iprat 2.5/0.5MG 3 ML AMPUL.NEB INHALE ×3 (08:10→19:28)
--- NOTE | 2020-10-23 09:23 | P.CDIC_ITS ---
CDI Concurrent Query Service Date: 10/23/20 Documentation Clarification: Please clarify if you are treating a proba ble/suspected/likely or confirmed: Acute blood loss anemia Please specify if known PLEASE DO NOT DELETE/MODIFY EXISTING CONTENT Additional information is needed in order to code to the highest accuracy and appropriate Severity of Illness (SOI). Please clarify the information noted below in your progress notes and discharge summary. Risk Factors/Clinical Indicators/Treatments Anemia due to GI blood loss GI consult Hb responded appropriately to 1 unit PRBC transfused. EGD/Colonoscopy to find source of bleed. h/h 7.5/.1 CDS: Payton Conrad CCS, CDIS Contact Number: [phone] Please Review the information above and exercise your independent professional judgment in responding to the query. If you concur, pleas document in the PROGRESS NOTES and DISCHARGE SUMMARY. If you do not agree with the query, please document in the query above. THIS QUERY IS PART OF THE PERMANENT MEDICAL RECORD
--- NOTE | 2020-10-23 09:58 | P.CONAN_ITS ---
[facility] Past Medical History Medical History Atrial fibrillation Chronic respiratory failure with hypoxia COPD (chronic obstructive pulmonary disease) Depression GERD (gastroesophageal reflux disease) Normocytic anemia Symptomatic anemia Vertigo Social History Social History Household Members: Family Housing: House Alcohol intake: never Smoking Status: Current every day smoker Tobacco Type: Cigarette Packs Per Day: 0.5 Cigarettes Per Day: 10.0 Smoked in Last 30 Days: Yes Second Hand Smoke Exposure: No Use of substances other than those prescribed or required for medical reasons: No Currently Displaying Signs/Symptoms of Drug Intoxication Withdrawal: No Advance Directives: No Advance Directives Information Provided: No Do you have thoughts of harming others: None Do you have a plan to hurt others: No Plan Recently lost weight without trying: Unsure service: No Current occupational status: retired [employer] Allergies Allergy/AdvReac Type Severity Reaction Status Date / Time No Known Allergies Allergy Verified 10/22/20 02:38 [No Known Allergies*] Home Medications Medication Instructions Recorded Confirmed Type Combivent Respimat 1 puff INHALATION QID PRN 08/13/20 10/21/20 History albuterol sulfate 1 inh INHALATION Q4-6H PRN 08/13/20 10/21/20 History buspirone 5 mg PO TID 08/13/20 10/21/20 History meclizine 12.5 mg PO TID PRN 08/13/20 10/21/20 History metoprolol tartrate 12.5 mg PO BID 08/13/20 10/21/20 History oxycodone-acetaminophen 1 tab PO Q6H PRN 08/13/20 10/21/20 History Eliquis 2.5 mg PO BID 10/01/20 10/21/20 History Trelegy Ellipta 1 inh INHALATION DAILY 10/01/20 10/21/20 History lorazepam 0.5 mg PO Q8H PRN 10/01/20 10/21/20 History zolpidem 5 mg PO BEDTIME PRN 10/01/20 10/21/20 History eejjtohelqc-irexxodvx-htybtzmd 1 puff PO DAILY 10/21/20 10/21/20 History [Trelegy Ellipta] prednisone 10 mg PO DAILY 10/21/20 10/21/20 History warfarin 1 - 2 tab PO DAILY 10/21/20 10/21/20 History Exam Exam Date and Time: October 23, [id number] Height,Weight and Vital Signs: Height 5 ft 2 in Weight 29.7 kg Last Vital Signs Temp 97.8 F 10/23/20 08:00 Pulse 70 10/23/20 08:15 Resp 18 10/23/20 08:00 BP 92/40 L 10/23/20 08:00 Pulse Ox 92 10/23/20 08:00 Pertinent Lab Results Pertinent Lab Results: Laboratory Tests 10/21/20 10/21/20 10/21/20 17:03 17:03 17:03 WBC 12.1 H RBC 2.16 L Hgb 7.5 L Hct 22.1 L MCV 102.3 H MCH 34.7 H MCHC 33.9 RDW 19.5 H Plt Count 259 D MPV 11.2 Immature Gran % (Auto) Cancelled Neut % (Auto) Cancelled Lymph % (Auto) Cancelled [place] % (Auto) Cancelled Eos % (Auto) Cancelled Baso % (Auto) Cancelled Lymph # (Auto) Cancelled [place] # (Auto) Cancelled Eos # (Auto) Cancelled Baso # (Auto) Cancelled Abs Immat Gran (auto) Cancelled Absolute Neuts (auto) Cancelled Absolute Nucleated RBC 0.000 Nucleated RBC % (auto) 0.0 Neutrophils % (Manual) 96 H Band Neutrophils % 2 L Monocytes % (Manual) 2 Abs Neuts (Manual) 11.9 H Monocytes # (Manual) 0.2 Platelet Estimate NORMAL Plt Morphology Comment NORMAL RBC Morphology NORMAL Smear Tech's Comments PT 14.8 H INR 1.2 H APTT 33.6 Sodium 141 Potassium 4.7 D Chloride 94 L Carbon Dioxide 38 H Anion Gap 14 BUN 26 H D Creatinine 0.77 Estim Creat Clear Calc 30.3 Estimated GFR > 60 Random Glucose 101 Lactic Acid Calcium 8.5 D Total Bilirubin 2.0 H Direct Bilirubin 0.8 H AST 18 D ALT 9 Alkaline Phosphatase 77 D Troponin I High Sens B-Natriuretic Peptide Total Protein 6.5 Albumin 4.1 Prealbumin Vitamin B12 Folate Urine Color Urine Appearance Urine pH Ur Specific [place] Urine Protein Urine Glucose (UA) Urine Ketones Urine Blood Urine Nitrite Ur Leukocyte Esterase Urine RBC Urine WBC Ur Squamous Epith Cells Urine Bacteria Stool Occult Blood Coronavirus (PCR) Influenza Type A (PCR) Influenza Type B (PCR) RSV RNA Qual (PCR) Blood Type Antibody Screen Antibody Identification Crossmatch Crossmatch ([facility]) 10/21/20 10/21/20 10/21/20 17:03 17:03 17:03 WBC RBC Hgb Hct MCV MCH MCHC RDW Plt Count MPV Immature Gran % (Auto) Neut % (Auto) Lymph % (Auto) [place] % (Auto) Eos % (Auto) Baso % (Auto) Lymph # (Auto) [place] # (Auto) Eos # (Auto) Baso # (Auto) Abs Immat Gran (auto) Absolute Neuts (auto) Absolute Nucleated RBC Nucleated RBC % (auto) Neutrophils % (Manual) Band Neutrophils % Monocytes % (Manual) Abs Neuts (Manual) Monocytes # (Manual) Platelet Estimate Plt Morphology Comment RBC Morphology Smear Tech's Comments PT INR APTT Sodium Potassium Chloride Carbon Dioxide Anion Gap BUN Creatinine Estim Creat Clear Calc Estimated GFR Random Glucose Lactic Acid 0.9 Calcium Total Bilirubin Direct Bilirubin AST ALT Alkaline Phosphatase Troponin I High Sens 6.9 B-Natriuretic Peptide 69 Total Protein Albumin Prealbumin Vitamin B12 Folate Urine Color Urine Appearance Urine pH Ur Specific [place] Urine Protein Urine Glucose (UA) Urine Ketones Urine Blood Urine Nitrite Ur Leukocyte Esterase Urine RBC Urine WBC Ur Squamous Epith Cells Urine Bacteria Stool Occult Blood Coronavirus (PCR) NEGATIVE Influenza Type A (PCR) NEGATIVE Influenza Type B (PCR) NEGATIVE RSV RNA Qual (PCR) NEGATIVE Blood Type Antibody Screen Antibody Identification Crossmatch Crossmatch ([facility] 10/21/20 10/21/20 10/21/20 19:04 19:24 23:39 WBC RBC Hgb Hct MCV MCH MCHC RDW Plt Count MPV Immature Gran % (Auto) Neut % (Auto) Lymph % (Auto) [place] % (Auto) Eos % (Auto) Baso % (Auto) Lymph # (Auto) [place] # (Auto) Eos # (Auto) Baso # (Auto) Abs Immat Gran (auto) Absolute Neuts (auto) Absolute Nucleated RBC Nucleated RBC % (auto) Neutrophils % (Manual) Band Neutrophils % Monocytes % (Manual) Abs Neuts (Manual) Monocytes # (Manual) Platelet Estimate Plt Morphology Comment RBC Morphology Smear Tech's Comments PT INR APTT Sodium Potassium Chloride Carbon Dioxide Anion Gap BUN Creatinine Estim Creat Clear Calc Estimated GFR Random Glucose Lactic Acid Calcium Total Bilirubin Direct Bilirubin AST ALT Alkaline Phosphatase Troponin I High Sens B-Natriuretic Peptide Total Protein Albumin Prealbumin Vitamin B12 Folate Urine Color YELLOW Urine Appearance CLEAR Urine pH 7.0 Ur Specific [place] 1.010 Urine Protein 1+ H Urine Glucose (UA) NEG Urine Ketones NEG Urine Blood 1+ H Urine Nitrite NEG Ur Leukocyte Esterase NEG Urine RBC 1-4 Urine WBC 0 Ur Squamous Epith Cells NONE Urine Bacteria 1+ Stool Occult Blood POS Coronavirus (PCR) Influenza Type A (PCR) Influenza Type B (PCR) RSV RNA Qual (PCR) Blood Type O Positive Antibody Screen POSITIVE Antibody Identification Anti-Fya Crossmatch See Detail Crossmatch ([facility]) See Detail 10/22/20 10/22/20 10/22/20 06:12 06:12 06:12 WBC 10.2 RBC 2.60 L D Hgb 9.1 L D Hct 26.4 L MCV 101.5 H MCH 35.0 H MCHC 34.5 RDW 17.7 H Plt Count 186 D MPV 11.7 Immature Gran % (Auto) 1.2 H Neut % (Auto) 95.7 H Lymph % (Auto) 1.9 L [place] % (Auto) 1.0 L Eos % (Auto) 0.1 Baso % (Auto) 0.1 Lymph # (Auto) 0.2 L [place] # (Auto) 0.1 Eos # (Auto) 0.0 Baso # (Auto) 0.0 Abs Immat Gran (auto) 0.12 H Absolute Neuts (auto) 9.7 H Absolute Nucleated RBC 0.000 Nucleated RBC % (auto) 0.0 Neutrophils % (Manual) Band Neutrophils % Monocytes % (Manual) Abs Neuts (Manual) Monocytes # (Manual) Platelet Estimate Plt Morphology Comment RBC Morphology Smear Tech's Comments VERIFIED PT INR APTT Sodium 141 Potassium 4.6 Chloride 98 Carbon Dioxide 33 H Anion Gap 15 BUN 22 H Creatinine 0.63 Estim Creat Clear Calc 34.3 Estimated GFR > 60 Random Glucose 89 Lactic Acid Calcium 8.0 L Total Bilirubin Direct Bilirubin AST ALT Alkaline Phosphatase Troponin I High Sens B-Natriuretic Peptide Total Protein Albumin Prealbumin Vitamin B12 726 Folate 5.6 Urine Color Urine Appearance Urine pH Ur Specific [place] Urine Protein Urine Glucose (UA) Urine Ketones Urine Blood Urine Nitrite Ur Leukocyte Esterase Urine RBC Urine WBC Ur Squamous Epith Cells Urine Bacteria Stool Occult Blood Coronavirus (PCR) Influenza Type A (PCR) Influenza Type B (PCR) RSV RNA Qual (PCR) Blood Type Antibody Screen Antibody Identification Crossmatch Crossmatch ([facility]) 10/23/20 10/23/20 10/23/20 05:28 05:28 05:28 WBC 7.9 RBC 2.45 L Hgb 8.4 L Hct 25.0 L MCV 102.0 H MCH 34.3 H MCHC 33.6 RDW 17.6 H Plt Count 167 MPV 11.4 Immature Gran % (Auto) 0.6 H Neut % (Auto) 97.2 H Lymph % (Auto) 0.9 L [place] % (Auto) 1.3 L Eos % (Auto) 0.0 Baso % (Auto) 0.0 Lymph # (Auto) 0.1 L [place] # (Auto) 0.1 Eos # (Auto) 0.0 Baso # (Auto) 0.0 Abs Immat Gran (auto) 0.05 H Absolute Neuts (auto) 7.6 Absolute Nucleated RBC 0.000 Nucleated RBC % (auto) 0.0 Neutrophils % (Manual) Band Neutrophils % Monocytes % (Manual) Abs Neuts (Manual) Monocytes # (Manual) Platelet Estimate Plt Morphology Comment RBC Morphology Smear Tech's Comments VERIFIED PT 11.7 D INR 1.0 APTT Sodium Potassium Chloride Carbon Dioxide Anion Gap BUN Creatinine Estim Creat Clear Calc Estimated GFR Random Glucose Lactic Acid Calcium Total Bilirubin Direct Bilirubin AST ALT Alkaline Phosphatase Troponin I High Sens B-Natriuretic Peptide Total Protein Albumin Prealbumin 12.0 L Vitamin B12 Folate Urine Color Urine Appearance Urine pH Ur Specific [place] Urine Protein Urine Glucose (UA) Urine Ketones Urine Blood Urine Nitrite Ur Leukocyte Esterase Urine RBC Urine WBC Ur Squamous Epith Cells Urine Bacteria Stool Occult Blood Coronavirus (PCR) Influenza Type A (PCR) Influenza Type B (PCR) RSV RNA Qual (PCR) Blood Type Antibody Screen Antibody Identification Crossmatch Crossmatch ([facility] 10/23/20 05:28 WBC RBC Hgb Hct MCV MCH MCHC RDW Plt Count MPV Immature Gran % (Auto) Neut % (Auto) Lymph % (Auto) [place] % (Auto) Eos % (Auto) Baso % (Auto) Lymph # (Auto) [place] # (Auto) Eos # (Auto) Baso # (Auto) Abs Immat Gran (auto) Absolute Neuts (auto) Absolute Nucleated RBC Nucleated RBC % (auto) Neutrophils % (Manual) Band Neutrophils % Monocytes % (Manual) Abs Neuts (Manual) Monocytes # (Manual) Platelet Estimate Plt Morphology Comment RBC Morphology Smear Tech's Comments PT INR APTT Sodium 141 Potassium 4.1 Chloride 96 Carbon Dioxide 36 H Anion Gap 13 BUN 17 H Creatinine 0.59 Estim Creat Clear Calc 38.6 Estimated GFR > 60 Random Glucose 110 Lactic Acid Calcium 7.8 L Total Bilirubin Direct Bilirubin AST ALT Alkaline Phosphatase Troponin I High Sens B-Natriuretic Peptide Total Protein Albumin Prealbumin Vitamin B12 Folate Urine Color Urine Appearance Urine pH Ur Specific [place] Urine Protein Urine Glucose (UA) Urine Ketones Urine Blood Urine Nitrite Ur Leukocyte Esterase Urine RBC Urine WBC Ur Squamous Epith Cells Urine Bacteria Stool Occult Blood Coronavirus (PCR) Influenza Type A (PCR) Influenza Type B (PCR) RSV RNA Qual (PCR) Blood Type Antibody Screen Antibody Identification Crossmatch Crossmatch ([facility]) Airway Mallampati Class: II TM Dist: >3cm Neck ROM: Full Denture: Upper Heart: RRR Lungs: decrease breath sounds Assessment and Plan Assessment Anesthesia Assessment: Anesthesia Plan Discussed and Chart Reviewed Final Anesthetic Review NPO: Yes (Sip water with meds) ASA Class: III Final Preanesthetic Review: Meds/Allgs Chart Reviewed and Consent Obtained/Reviewed Patient Risk: Intermediate Procedure Risk: Intermediate Anesthetic Plan Anesthetic Plan: MAC: Disposition: Standard PACU
--- NOTE | 2020-10-23 10:04 | HO.ANESPROP2 ---
HPI - Anesthesia Eval Consult details Narrative: 74yo female patient here for colonoscopy for anemia. S/p EGD a few days ago. [facility] Past Medical History Medical History (Updated 10/27/20 @ 13:37 by Nena Osborne) Atrial fibrillation Chronic respiratory failure with hypoxia COPD (chronic obstructive pulmonary disease) Depression GERD (gastroesophageal reflux disease) Normocytic anemia Severely underweight adult Symptomatic anemia Vertigo Family History Family history of problems with anesthesia: No Surgical History Surgical History (Updated 10/27/20 @ 13:29 by Nena Osborne) History of esophagogastroduodenoscopy (EGD) Hx of appendectomy S/P cholecystectomy History of Problems with Anesthesia: No Social History Social History Household Members: Family Housing: House Alcohol intake: never Smoking Status: Current every day smoker Tobacco Type: Cigarette Packs Per Day: 0.5 Cigarettes Per Day: 4 Smoked in Last 30 Days: Yes Second Hand Smoke Exposure: No Use of substances other than those prescribed or required for medical reasons: Yes Currently Displaying Signs/Symptoms of Drug Intoxication Withdrawal: No Advance Directives: No Advance Directives Information Provided: No Do you have thoughts of harming others: None Do you have a plan to hurt others: No Plan Recently lost weight without trying: Unsure service: No Current occupational status: retired Meds Allergies Allergy/AdvReac Type Severity Reaction Status Date / Time No Known Allergies Allergy Verified 10/22/20 02:38 [No Known Allergies*] Home Medications Medication Instructions Recorded Confirmed Type Combivent Respimat 1 puff INHALATION QID PRN 08/13/20 10/21/20 History albuterol sulfate 1 inh INHALATION Q4-6H PRN 08/13/20 10/21/20 History buspirone 5 mg PO TID 08/13/20 10/21/20 History meclizine 12.5 mg PO TID PRN 08/13/20 10/21/20 History metoprolol tartrate 12.5 mg PO BID 08/13/20 10/21/20 History oxycodone-acetaminophen 1 tab PO Q6H PRN 08/13/20 10/21/20 History Eliquis 2.5 mg PO BID 10/01/20 10/21/20 History Trelegy Ellipta 1 inh INHALATION DAILY 10/01/20 10/21/20 History lorazepam 0.5 mg PO Q8H PRN 10/01/20 10/21/20 History zolpidem 5 mg PO BEDTIME PRN 10/01/20 10/21/20 History fdgmmquzeqk-mzkgppbhd-gaeykkpd 1 puff PO DAILY 10/21/20 10/21/20 History [Trelegy Ellipta] prednisone 10 mg PO DAILY 10/21/20 10/21/20 History warfarin 1 - 2 tab PO DAILY 10/21/20 10/21/20 History Exam Height,Weight and Vital Signs: Vital Signs Temp Pulse Resp BP Pulse Ox 10/27/20 12:40 98.8 F 91 16 110/34 L 100 10/27/20 11:08 96 F L 101 H 18 108/54 L 100 10/27/20 09:00 94 10/27/20 07:06 97 F 90 22 H 98/52 L 100 10/27/20 04:04 97.5 F 88 17 118/54 L 97 10/27/20 00:49 98 F 82 18 101/50 L 10/27/20 00:31 98.2 F 89 18 112/55 L 10/27/20 00:00 98.2 F 89 18 112/55 L 100 10/26/20 19:51 96.8 F 80 19 99/51 L 93 10/26/20 16:00 97.6 F 83 18 92/34 L 100 Pertinent Lab Results Pertinent Lab Results: Short CBC 10/27/20 Range/Units 09:23 Hgb 10.2 L D (12.0-16.0) g/dl Hct 29.7 L D (37-47) % S/p 2 units of PRBC since admission on 10/21/2020. Last unit early this am. Urine 10/21/20 Range/Units 19:24 Urine Color YELLOW Urine Appearance CLEAR Urine pH 7.0 (5.0-8.0) Ur Specific [place] 1.010 (1.005-1.025) Urine Protein 1+ H (NEG-TRACE) MG/DL Urine Glucose (UA) NEG (NEG) MG/DL Airway Mallampati Class: II TM Dist: >3cm Neck ROM: Full Denture: Upper and Lower Heart: RRR. ?murmur Lungs: CTAB Assessment and Plan Assessment Anesthesia Assessment: Anesthesia Plan Discussed Final Anesthetic Review NPO: Yes ASA Class: III Final Preanesthetic Review: No Changes in Pt Med Stat, Meds/Allgs Chart Reviewed, Consent Obtained/Reviewed and Anes Risks/Benef Reviewed Patient Risk: Intermediate Procedure Risk: Low Assessment/Block/Sedation in SS: Assess/Block/Sedation-SS Anesthetic Plan Anesthetic Plan: MAC: and Regional Block Disposition: Standard PACU
--- NOTE | 2020-10-23 10:50 | MHC.SHP ---
Pre-Procedural Eval Section A The patient is an INPATIENT: Yes Changes since office visit: No Cold of Flu in the past 2 weeks, No New Medical Problems, No Changes in Medication and No Patient answered all questions The History & Physical has been completed within 30 days and I have reviewed it.: Yes Section B Chief Complaint: COMMUNITY ACQUIRED PNEUMONIA, COPD EXACERBATION,AN Allergies: Allergies Allergy/AdvReac Type Severity Reaction Status Date / Time No Known Allergies Allergy Verified 10/22/20 02:38 [No Known Allergies*] Plan Patient has been examined and remains a candidate for the planned procedure
--- NOTE | 2020-10-23 10:57 | PC.NURSE ---
pt to [facility] for colonscopy with Dr. Bonner. before going into the operating room, pt stated that she felt as if she had a bowel movement. this RN turned the patient with the help of Megan Barba, [employer]NA[employer], and we noticed that her coccyx was red and jeronimo. message [place] [facility] [place] stated she was aware and will put a foam dressing on it upon Obdulia's return to [facility].
--- NOTE | 2020-10-23 11:18 | PM.OP ---
Brief Operative Note Date of Service: 10/23/20 Pre-op diagnosis: anemia, heme positive stool Post-op diagnosis: same (normal upper endoscopy) Procedure: EGD. Colonoscopy cancelled due to formed stool in rectum on digital rectal exam Surgeon: David Bonner Estimated blood loss (mL): 0 Pathology: none sent Condition: stable Disposition: PACU
--- NOTE | 2020-10-23 12:00 | OP_ITS ---
SURGEON: David Bonner MD INDICATIONS: Anemia and Hemoccult-positive stools. PREOPERATIVE DIAGNOSIS: POSTOPERATIVE DIAGNOSIS: PROCEDURE PERFORMED: Upper endoscopy. ESTIMATED BLOOD LOSS: COMPLICATIONS: ANESTHESIA: ASSISTANTS: SPECIMENS: MEDICATIONS: Monitored anesthesia care. DESCRIPTION OF PROCEDURE: History and physical performed. The risks and benefits of the procedure were explained to the patient. Informed consent was obtained. The patient was placed in the left lateral decubitus position. The Olympus video gastroscope was introduced into the esophagus, stomach, and duodenum. Examination was performed and the scope was removed. She tolerated the procedure well. She was repositioned for colonoscopy, which had been scheduled. Digital rectal exam was performed and revealed formed stool present in the rectum. Therefore, the procedure was canceled. She was transferred to recovery room in stable condition. FINDINGS: UPPER ENDOSCOPY: Esophagus: The esophagus was normal. Stomach: The stomach was normal. Duodenum: The bulb and second portion were normal. IMPRESSION: Normal upper endoscopy. RECOMMENDATIONS: 1. Advanced diet. 2. Monitor hematocrit. MD JOSEPH Pearce/CATHYL / [phone]
--- NOTE | 2020-10-23 13:02 | HO.PM.IMPN ---
Subjective Subjective Date of Service: 10/23/20 Interval History: No abd pain. No hematochezia or melena. EGD done- normal. C-scope canceled due to formed stool in rectum. Still feels dyspneic. No cough. Physical Exam Vital Signs: Vital Signs: Last Vital Signs Temp 98.9 F 10/23/20 12:00 Pulse 88 10/23/20 12:20 Resp 16 10/23/20 12:20 BP 99/44 L 10/23/20 12:20 Pulse Ox 100 10/23/20 12:20 Body Mass Index 12.0 Gen: in no acute distress, cachectic HEENT: pale conjunctivae, moist mucus membranes Neck: supple Lungs: prolonged expiratory phase Heart: regular rate and rhythm, no murmurs Abd: soft, non-tender, non-distended Ext: no edema Skin: warm/well-perfused Neuro: alert and oriented x3, no focal findings Psych: appropriate affect Objective Data Current Medications Generic Name Dose Route Start Last Admin Trade Name Freq PRN Reason Stop Dose Admin Acetaminophen 650 mg 10/22/20 00:36 10/22/20 17:37 Acetaminophen 325 Mg Tablet PO 650 mg Q6H PRN Administration Pain, Mild (Pain Scale 1-3) Albuterol/Ipratropium 3 ml 10/22/20 08:00 10/23/20 11:44 Albuterol/Iprat 2.5/0.5mg 3 Ml Ampul.Neb INHALE Not Given RQ4H WHILE AWAKE MARCOS Albuterol/Ipratropium 3 ml 10/22/20 03:10 Albuterol/Iprat 2.5/0.5mg 3 Ml Ampul.Neb INHALE RQ4H PRN Shortness of Breath/Wheezing Azithromycin 500 mg 10/22/20 20:00 10/22/20 20:40 Azithromycin 500 Mg Tablet PO 500 mg Q24H MARCOS Administration Buspirone HCl 5 mg 10/22/20 09:00 10/23/20 07:40 Buspirone Hcl 5 Mg Tablet PO 5 mg TID MARCOS Administration Docusate Sodium 100 mg 10/22/20 00:36 Docusate Sodium 100 Mg Capsule PO DAILY PRN Constipation Lorazepam 0.5 mg 10/22/20 00:36 10/23/20 07:40 Lorazepam 0.5 Mg Tablet PO 0.5 mg Q8H PRN Administration anxiety Meclizine HCl 12.5 mg 10/22/20 00:36 Meclizine Hcl 12.5 Mg Tablet PO TID PRN Dizziness Methylprednisolone Sodium Succinate 40 mg 10/24/20 09:00 Methylprednisolone Sod Succ/Pf 40 Mg/Ml Vial IVPUSH DAILY [facility] Metoprolol Tartrate 12.5 mg 10/22/20 09:00 10/23/20 08:01 Metoprolol Tartrate 25 Mg Tablet PO Not Given BID [facility] Protocol Ondansetron HCl 4 mg 10/22/20 00:36 Ondansetron Hcl 4 Mg/2 Ml Vial IVPUSH Q8H PRN Nausea and Vomiting Oxycodone HCl 10 mg 10/22/20 02:06 10/23/20 07:40 Oxycodone Hcl Immed Release 5 Mg Tablet PO 10 mg Q6H PRN Administration Mild Pain (Scale Score 1-4) Pantoprazole Sodium 40 mg 10/22/20 06:30 10/23/20 05:25 Pantoprazole Sodium 40 Mg/10 Ml Vial IVPUSH 40 mg BID@6730,2690 [facility] Administration Pharmacy Consult 1 each 10/21/20 21:37 Consult Rx Perform Med Rec MISCELLANE ONCE PRN Consult order Polyethylene Glycol 17 gm 10/22/20 09:00 10/23/20 08:01 Polyethylene Glycol 3350 17 Gm Powd.Pack PO Not Given DAILY [facility] Sodium Chloride 3 ml 10/22/20 00:36 10/23/20 07:38 0.9 % Sodium Chloride Flush 3 Ml Syringe IVFLUSH 3 ml QSHIFT [facility] Administration Zolpidem Tartrate 5 mg 10/22/20 00:36 Zolpidem Tartrate 5 Mg Tablet PO BEDTIME PRN insomnia Labs CBC & Chem 7: 10/23/20 05:28 10/23/20 05:28 Labs: Laboratory Results - last 24 hr 10/23/20 10/23/20 10/23/20 05:28 05:28 05:28 WBC 7.9 RBC 2.45 L Hgb 8.4 L Hct 25.0 L MCV 102.0 H MCH 34.3 H MCHC 33.6 RDW 17.6 H Plt Count 167 MPV 11.4 Immature Gran % (Auto) 0.6 H Neut % (Auto) 97.2 H Lymph % (Auto) 0.9 L [place] % (Auto) 1.3 L Eos % (Auto) 0.0 Baso % (Auto) 0.0 Lymph # (Auto) 0.1 L [place] # (Auto) 0.1 Eos # (Auto) 0.0 Baso # (Auto) 0.0 Abs Immat Gran (auto) 0.05 H Absolute Neuts (auto) 7.6 Absolute Nucleated RBC 0.000 Nucleated RBC % (auto) 0.0 Smear Tech's Comments VERIFIED PT 11.7 D INR 1.0 Sodium Potassium Chloride Carbon Dioxide Anion Gap BUN Creatinine Estim Creat Clear Calc Estimated GFR Random Glucose Calcium Prealbumin 12.0 L 10/23/20 05:28 WBC RBC Hgb Hct MCV MCH MCHC RDW Plt Count MPV Immature Gran % (Auto) Neut % (Auto) Lymph % (Auto) [place] % (Auto) Eos % (Auto) Baso % (Auto) Lymph # (Auto) [place] # (Auto) Eos # (Auto) Baso # (Auto) Abs Immat Gran (auto) Absolute Neuts (auto) Absolute Nucleated RBC Nucleated RBC % (auto) Smear Tech's Comments PT INR Sodium 141 Potassium 4.1 Chloride 96 Carbon Dioxide 36 H Anion Gap 13 BUN 17 H Creatinine 0.59 Estim Creat Clear Calc 38.6 Estimated GFR > 60 Random Glucose 110 Calcium 7.8 L Prealbumin Microbiology Microbiology Results: Microbiology 10/21/20 19:04 Blood - Venous Blood Culture - Preliminary No growth after 24 hours. 10/21/20 19:04 Blood - Venous Blood Culture - Preliminary No growth after 24 hours. Assessment and Plan (1) GI bleed: Status: Acute (2) Acute exacerbation of COPD with asthma: Status: Acute Assessment and Plan: hospital d#3 74yo F with COPD, recent admission for anemia during which she was FOBT-negative admitted for symptomatic anemia, FOBT-positive stool, and COPD exacerbation # anemia due to GI blood loss - EGD normal, C-scope cancelled due to inadequate prep - hold apixaban - 1u pRBCs transfused on admission - monitor Hb # COPD exacerbation - taper steroids, prn bronchodilators, azithromycin d#3 # pAF - continue metoprolol (held today for soft BP) - hold apixaban due to GI bleed # severe protein-calorie malnutrition - supplements when taking PO
--- NOTE | 2020-10-23 14:13 | MHC.CM.PN ---
Patient is on O2 at 1 liter via NC and IV solu-medrol. Discharge plan is home with resumption of services from [facility]. Marshall Neumann will provide transport. CM will continue to follow for discharge needs.
[2020-10-23] MEDS: Meclizine HCl 12.5 MG TABLET PO (14:24)
[2020-10-23] MEDS: polyethylene glycoL 3350 17 GM POWD.PACK PO (16:30)
[2020-10-23] MEDS: Azithromycin 500 MG TABLET PO (19:53)
[2020-10-23] MEDS: Sennosides/Docusate Sodium TABLET 2 TAB PO (20:15)
[2020-10-23] MEDS: Metoprolol Tartrate 25 MG TABLET 12.5 MG PO (20:53)
[2020-10-24] VITALS (17 sets, daily range): BP systolic 76–102; BP diastolic 31–53; PULSE 76–103; RESP 18–20; TEMP 36.1–36.7; O2SAT 97–100
--- NOTE | 2020-10-24 01:15 | PC.NURSE ---
tele revewed by [facility] [place]
[2020-10-24] MEDS: oxyCODONE HCl Immed Release 5 MG TABLET 10 MG PO ×3 (05:10→23:46)
[2020-10-24] MEDS: Omeprazole 20 MG CAPSULE.DR PO (05:12)
--- NOTE | 2020-10-24 05:49 | PC.NURSE ---
[place] [facility] [place]
--- NOTE | 2020-10-24 05:53 | PC.NURSE ---
pt refusing compression therapy
[2020-10-24 06:58] LABS: Basophils Percent Auto 0.1 % (0-2); Eosinophils Absolute Auto 0.1 X10*3/uL (0.0-0.4); Eosinophils Percent Auto 0.6 % (0-4); Hematocrit 27.5 % (37-47); Hemoglobin 8.9 g/dl (12.0-16.0); Imm Gran Abs Auto 0.08 X10*3/uL (0.00-0.03); Imm Gran Pct Auto 0.8 % (0.0-0.4); Lymphocytes Absolute Auto 0.3 X10*3/uL (1.2-4.9); Lymphocytes Percent Auto 2.7 % (20-40); MANUAL DIFF FLAG SCAN; Mean Corpuscular HGB Conc 32.4 g/dl (31.0-35.0); Mean Corpuscular Hemoglobin 34.1 pg (27.0-33.0); Mean Corpuscular Volume 105.4 fL (80-98); Mean Platelet Volume 11.5 fL (9.4-12.3); Monocytes Absolute Auto 0.9 X10*3/uL (0.1-1.2); Monocytes Percent Auto 8.8 % (2-11); Neutrophils Absolute Auto 8.7 X10*3/uL (2.0-8.3); Platelet Count 172 X10*3/uL (160-400); Red Blood Count 2.61 X10*6/uL (4.20-5.50); Red Cell Distribution Width 18.2 % (11.0-16.0); SCAN SMEAR FLAG 1
[2020-10-24] MEDS: Albuterol/Iprat 2.5/0.5MG 3 ML AMPUL.NEB INHALE ×3 (07:17→15:19)
[2020-10-24 07:47] LABS: SLIDE REVIEW VERIFIED
--- NOTE | 2020-10-24 08:21 | HO.POSTANES ---
Post Anesthesia Evaluation Post Anesthesia Evaluation Vital Signs: Vital Signs Temp Pulse Resp BP Pulse Ox 10/24/20 08:00 97.9 F 85 20 95/41 L 100 10/24/20 07:19 76 10/24/20 04:00 97.3 F 87 18 96/46 L 100 10/24/20 00:00 97.5 F 83 18 92/43 L 100 10/23/20 20:53 100 106/51 L Anesthesia: Monitored Mental Status: Awake Pain Control: Satisfactory Nausea/Vomiting: None Hydration: Adequate Anesthesia-Related Issues: No Anes. Related Issues
[2020-10-24] MEDS: busPIRone HCl 5 MG TABLET PO ×3 (08:59→20:11)
[2020-10-24] MEDS: Nicotine 14 MG PATCH.TD24 TRANSDERMA (08:59)
--- NOTE | 2020-10-24 12:12 | ECG_ITS ---
Test Reason : RYTHM CHANGE Blood Pressure : / mmHG Vent. Rate : 085 BPM Atrial Rate : 085 BPM P-R Int : 150 ms QRS Dur : 072 ms QT Int : 350 ms P-R-T Axes : 067 068 065 degrees QTc Int : 416 ms Sinus rhythm with Premature atrial complexes Septal infarct (cited on or before 22-OCT-2020) Abnormal ECG When compared with ECG of 24-OCT-2020 15:28, Premature atrial complexes are now Present Referred By: Tayo Urban Electronically Signed By:Bill Valenzuela
--- NOTE | 2020-10-24 14:44 | P.PNIM_ITS ---
Subjective Subjective Date of Service: 10/24/20 Interval History: markedly orthostatic 93/40 supine ->77/33 standing hungry, denies abd pain Physical Exam Vital Signs: Vital Signs: Last Vital Signs Temp 97.3 F 10/24/20 14:16 Pulse 100 10/24/20 14:19 Resp 20 10/24/20 14:16 BP 77/33 L 10/24/20 14:19 Pulse Ox 97 10/24/20 14:16 Body Mass Index 12.0 Gen: in no acute distress, cachectic HEENT: pale conjunctivae, moist mucus membranes Neck: supple Lungs: prolonged expiratory phase Heart: regular rate and rhythm, no murmurs Abd: soft, non-tender, non-distended Ext: no edema Skin: warm/well-perfused Neuro: alert and oriented x3, no focal findings Psych: appropriate affect Objective Data Current Medications Generic Name Dose Route Start Last Admin Trade Name Freq PRN Reason Stop Dose Admin Acetaminophen 650 mg 10/22/20 00:36 10/22/20 17:37 Acetaminophen 325 Mg Tablet PO 650 mg Q6H PRN Administration Pain, Mild (Pain Scale 1-3) Albuterol/Ipratropium 3 ml 10/22/20 08:00 10/24/20 11:15 Albuterol/Iprat 2.5/0.5mg 3 Ml Ampul.Neb INHALE 3 ml RQ4H WHILE AWAKE MARCOS Administration Albuterol/Ipratropium 3 ml 10/22/20 03:10 Albuterol/Iprat 2.5/0.5mg 3 Ml Ampul.Neb INHALE RQ4H PRN Shortness of Breath/Wheezing Azithromycin 500 mg 10/22/20 20:00 10/23/20 19:53 Azithromycin 500 Mg Tablet PO 500 mg Q24H MARCOS Administration Buspirone HCl 5 mg 10/22/20 09:00 10/24/20 08:59 Buspirone Hcl 5 Mg Tablet PO 5 mg TID MARCOS Administration Sodium Chloride 1,000 mls @ 125 mls/hr 10/24/20 14:45 Ns IVCONT 10/24/20 22:44 .Q8H MARCOS Lorazepam 0.5 mg 10/22/20 00:36 10/23/20 07:40 Lorazepam 0.5 Mg Tablet PO 0.5 mg Q8H PRN Administration anxiety Meclizine HCl 12.5 mg 10/22/20 00:36 10/23/20 14:24 Meclizine Hcl 12.5 Mg Tablet PO 12.5 mg TID PRN Administration Dizziness Methylprednisolone Sodium Succinate 40 mg 10/24/20 09:00 10/24/20 09:01 Methylprednisolone Sod Succ/Pf 40 Mg/Ml Vial IVPUSH 40 mg DAILY MARCOS Administration Metoprolol Tartrate 12.5 mg 10/22/20 09:00 10/24/20 09:01 Metoprolol Tartrate 25 Mg Tablet PO Not Given BID [facility] Protocol Nicotine 14 mg 10/24/20 09:00 10/24/20 08:59 Nicotine 14 Mg Patch.Td24 TRANSDERMA 14 mg DAILY MARCOS Administration Omeprazole 20 mg 10/24/20 06:30 10/24/20 05:12 Omeprazole 20 Mg Capsule.Dr PO 20 mg DAILY@0630 MARCOS Administration Ondansetron HCl 4 mg 10/22/20 00:36 Ondansetron Hcl 4 Mg/2 Ml Vial IVPUSH Q8H PRN Nausea and Vomiting Oxycodone HCl 10 mg 10/22/20 02:06 10/24/20 05:10 Oxycodone Hcl Immed Release 5 Mg Tablet PO 10 mg Q6H PRN Administration Mild Pain (Scale Score 1-4) Pharmacy Consult 1 each 10/21/20 21:37 Consult Rx Perform Med Rec MISCELLANE ONCE PRN Consult order Polyethylene Glycol 17 gm 10/22/20 09:00 10/24/20 09:01 Polyethylene Glycol 3350 17 Gm Powd.Pack PO Not Given DAILY MARCOS Polyethylene Glycol 17 gm 10/23/20 15:25 10/24/20 09:01 Polyethylene Glycol 3350 17 Gm Powd.Pack PO Not Given DAILY MARCOS Senna/Docusate Sodium 2 tab 10/23/20 21:00 10/24/20 09:01 Sennosides/Docusate Sodium Tablet PO Not Given BID MARCOS Sodium Chloride 3 ml 10/22/20 00:36 10/23/20 20:51 0.9 % Sodium Chloride Flush 3 Ml Syringe IVFLUSH 3 ml QSHIFT MARCOS Administration Zolpidem Tartrate 5 mg 10/22/20 00:36 Zolpidem Tartrate 5 Mg Tablet PO BEDTIME PRN insomnia Labs CBC & Chem 7: 10/24/20 06:24 10/23/20 05:28 Labs: Laboratory Results - last 24 hr 10/24/20 06:24 WBC 10.0 RBC 2.61 L Hgb 8.9 L Hct 27.5 L MCV 105.4 H MCH 34.1 H MCHC 32.4 RDW 18.2 H Plt Count 172 MPV 11.5 Immature Gran % (Auto) 0.8 H Neut % (Auto) 87.0 H Lymph % (Auto) 2.[address] [place] % (Auto) 8.8 Eos % (Auto) 0.6 Baso % (Auto) 0.1 Lymph # (Auto) 0.[address] [facility] [place] # (Auto) 0.9 Eos # (Auto) 0.1 Baso # (Auto) 0.0 Abs Immat Gran (auto) 0.08 H Absolute Neuts (auto) 8.7 H Absolute Nucleated RBC 0.000 Nucleated RBC % (auto) 0.0 Smear Tech's Comments VERIFIED Microbiology Microbiology Results: Microbiology 10/21/20 19:04 Blood - Venous Blood Culture - Preliminary No growth after 48 hours. 10/21/20 19:04 Blood - Venous Blood Culture - Preliminary No growth after 48 hours. Assessment and Plan (1) GI bleed: Status: Acute (2) Acute exacerbation of COPD with asthma: Status: Acute Assessment and Plan: hospital d#3 74yo F with COPD, recent admission for anemia during which she was FOBT-negative admitted for symptomatic anemia, FOBT-positive stool, and COPD exacerbation # anemia due to GI blood loss - EGD normal, C-scope cancelled due to inadequate prep- retained danie in rectam - hold apixaban - 1u pRBCs transfused on admission - monitor Hb - on MiraLax for constipation # COPD exacerbation - taper steroids, prn bronchodilators, azithromycin d#4 # pAF - hold metoprolol due to orthostatic hypotension - hold apixaban due to GI bleed # severe protein-calorie malnutrition - supplements # tobacco abuse - accepts NRT # dispo - PT consult
[2020-10-24] MEDS: 0.9 % Sodium Chloride 1,000 ML 125 ML IVCONT (15:22)
--- NOTE | 2020-10-24 17:18 | PC.NURSE ---
At 1518 pt went into a burst of rapid afib. This RN made MD aware. Pt has a history of afib as well. Pt asymptomatic, EKG and VS obtained. Pt currently in sinus arrythmia. Will continue to monitor.
[2020-10-24] MEDS: Zolpidem Tartrate 5 MG TABLET PO (20:11)
[2020-10-24] MEDS: Azithromycin 500 MG TABLET PO (20:11)
[2020-10-24] MEDS: Sennosides/Docusate Sodium TABLET 2 TAB PO (20:11)
[2020-10-24] MEDS: 0.9 % Sodium Chloride Flush 3 ML SYRINGE IVFLUSH (23:48)
[2020-10-25] VITALS (12 sets, daily range): BP systolic 78–112; BP diastolic 39–81; PULSE 75–100; RESP 18–20; TEMP 36.4–37.1; O2SAT 94–100; BMI 11.8
[2020-10-25] MEDS: Acetaminophen 325 MG TABLET 650 MG PO (04:07)
[2020-10-25] MEDS: oxyCODONE HCl Immed Release 5 MG TABLET 10 MG PO ×3 (05:46→20:12)
[2020-10-25] MEDS: Omeprazole 20 MG CAPSULE.DR PO (05:46)
[2020-10-25] MEDS: Albuterol/Iprat 2.5/0.5MG 3 ML AMPUL.NEB INHALE ×3 (07:09→19:41)
[2020-10-25 07:40] LABS: Basophils Percent Auto 0.1 % (0-2); Eosinophils Absolute Auto 0.1 X10*3/uL (0.0-0.4); Hematocrit 26.3 % (37-47); Hemoglobin 8.7 g/dl (12.0-16.0); Imm Gran Abs Auto 0.08 X10*3/uL (0.00-0.03); Lymphocytes Absolute Auto 0.3 X10*3/uL (1.2-4.9); Lymphocytes Percent Auto 3.6 % (20-40); MANUAL DIFF FLAG SCAN; Mean Corpuscular HGB Conc 33.1 g/dl (31.0-35.0); Mean Corpuscular Hemoglobin 34.7 pg (27.0-33.0); Mean Corpuscular Volume 104.8 fL (80-98); Mean Platelet Volume 11.7 fL (9.4-12.3); Monocytes Absolute Auto 0.8 X10*3/uL (0.1-1.2); Monocytes Percent Auto 10.1 % (2-11); Neutrophils Absolute Auto 6.9 X10*3/uL (2.0-8.3); Neutrophils Percent Auto 84.2 % (45-73); Platelet Count 160 X10*3/uL (160-400); Red Blood Count 2.51 X10*6/uL (4.20-5.50); SCAN SMEAR FLAG 1; White Blood Count 8.2 X10*3/uL (4.8-10.8)
[2020-10-25] MEDS: 0.9 % Sodium Chloride Flush 3 ML SYRINGE IVFLUSH ×2 (07:54→23:10)
[2020-10-25] MEDS: Nicotine 14 MG PATCH.TD24 TRANSDERMA (08:05)
[2020-10-25] MEDS: Sennosides/Docusate Sodium TABLET 2 TAB PO ×2 (08:05→20:13)
[2020-10-25] MEDS: busPIRone HCl 5 MG TABLET PO ×3 (08:05→20:13)
[2020-10-25 08:08] LABS: Blood Urea Nitrogen 11 mg/dL (9-16); Creatinine Clr Calc Pharmacy 42.5; Estimated Glomerular Filt Rate > 60
[2020-10-25 08:19] LABS: SLIDE REVIEW VERIFIED
[2020-10-25 08:24] LABS: TSH reflex Free T4 0.48 mIU/mL (0.32-4.0)
[2020-10-25 08:37] LABS: Anion Gap 10 (12-20); Calcium 7.5 mg/dL (8.4-10.2); Carbon Dioxide 34 mmol/L (22-29); Chloride 101 mmol/L (96-108); Glucose Random 64 mg/dL (60-115); Potassium 4.3 mmol/l (3.3-5.1); Sodium 141 mmol/L (135-145)
[2020-10-25] MEDS: 0.9 % Sodium Chloride 1,000 ML 100 ML IVCONT (09:36)
--- NOTE | 2020-10-25 12:00 | HO.PM.IMPN ---
Subjective Subjective Date of Service: 10/25/20 Interval History: short burst of AF/RVR yesterday, terminated spontaneously still very orthostatic by VS and does endorse some dizziness with standing dyspnea improved no abd pain or GI bleeding Physical Exam Vital Signs: Vital Signs: Temperature 98.7 F 10/25/20 08:00 Pulse Rate 84 10/25/20 11:08 Respiratory Rate 18 10/25/20 08:00 Blood Pressure 78/39 L 10/25/20 08:21 Pulse Oximetry 94 10/25/20 09:00 BP 112/44 supine -> 78/39 lying Body Mass Index 11.8 Gen: in no acute distress, cachectic HEENT: pale conjunctivae, moist mucus membranes Neck: supple Lungs: prolonged expiratory phase Heart: regular rate and rhythm, no murmurs Abd: soft, non-tender, non-distended Ext: no edema Skin: warm/well-perfused Neuro: alert and oriented x3, no focal findings Psych: appropriate affect Objective Data Current Medications Generic Name Dose Route Start Last Admin Trade Name oNeq PRN Reason Stop Dose Admin Acetaminophen 650 mg 10/22/20 00:36 10/25/20 04:07 Acetaminophen 325 Mg Tablet PO 650 mg Q6H PRN Administration Pain, Mild (Pain Scale 1-3) Albuterol/Ipratropium 3 ml 10/22/20 08:00 10/25/20 11:06 Albuterol/Iprat 2.5/0.5mg 3 Ml Ampul.Neb INHALE 3 ml RQ4H WHILE AWAKE MARCOS Administration Albuterol/Ipratropium 3 ml 10/22/20 03:10 Albuterol/Iprat 2.5/0.5mg 3 Ml Ampul.Neb INHALE RQ4H PRN Shortness of Breath/Wheezing Azithromycin 500 mg 10/22/20 20:00 10/24/20 20:11 Azithromycin 500 Mg Tablet PO 500 mg Q24H MARCOS Administration Buspirone HCl 5 mg 10/22/20 09:00 10/25/20 08:05 Buspirone Hcl 5 Mg Tablet PO 5 mg TID MARCOS Administration Sodium Chloride 1,000 mls @ 100 mls/hr 10/25/20 09:15 10/25/20 09:36 Ns IVCONT 10/25/20 19:14 100 mls/hr .Q10H MARCOS Administration Lorazepam 0.5 mg 10/22/20 00:36 10/23/20 07:40 Lorazepam 0.5 Mg Tablet PO 0.5 mg Q8H PRN Administration anxiety Meclizine HCl 12.5 mg 10/22/20 00:36 10/23/20 14:24 Meclizine Hcl 12.5 Mg Tablet PO 12.5 mg TID PRN Administration Dizziness Methylprednisolone Sodium Succinate 40 mg 10/24/20 09:00 10/25/20 07:55 Methylprednisolone Sod Succ/Pf 40 Mg/Ml Vial IVPUSH 40 mg DAILY MARCOS Administration Metoprolol Tartrate 12.5 mg 10/22/20 09:00 10/24/20 09:01 Metoprolol Tartrate 25 Mg Tablet PO Not Given BID MARCOS Protocol Nicotine 14 mg 10/24/20 09:00 10/25/20 08:05 Nicotine 14 Mg Patch.Td24 TRANSDERMA 14 mg DAILY MARCOS Administration Omeprazole 20 mg 10/24/20 06:30 10/25/20 05:46 Omeprazole 20 Mg Capsule.Dr PO 20 mg DAILY@0630 MARCOS Administration Ondansetron HCl 4 mg 10/22/20 00:36 Ondansetron Hcl 4 Mg/2 Ml Vial IVPUSH Q8H PRN Nausea and Vomiting Oxycodone HCl 10 mg 10/22/20 02:06 10/25/20 05:46 Oxycodone Hcl Immed Release 5 Mg Tablet PO 10 mg Q6H PRN Administration Mild Pain (Scale Score 1-4) Pharmacy Consult 1 each 10/21/20 21:37 Consult Rx Perform Med Rec MISCELLANE ONCE PRN Consult order Polyethylene Glycol 17 gm 10/23/20 15:25 10/25/20 08:05 Polyethylene Glycol 3350 17 Gm Powd.Pack PO Not Given DAILY MARCOS Senna/Docusate Sodium 2 tab 10/23/20 21:00 10/25/20 08:05 Sennosides/Docusate Sodium Tablet PO 2 tab BID MARCOS Administration Sodium Chloride 3 ml 10/22/20 00:36 10/25/20 07:54 0.9 % Sodium Chloride Flush 3 Ml Syringe IVFLUSH 3 ml QSHIFT MARCOS Administration Zolpidem Tartrate 5 mg 10/22/20 00:36 10/24/20 20:11 Zolpidem Tartrate 5 Mg Tablet PO 5 mg BEDTIME PRN Administration insomnia Labs CBC & Chem 7: 10/25/20 05:59 10/25/20 05:59 Labs: Laboratory Results - last 24 hr 10/21/20 10/25/20 10/25/20 23:39 05:58 05:59 WBC 8.2 RBC 2.51 L Hgb 8.7 L Hct 26.3 L MCV 104.8 H MCH 34.7 H MCHC 33.1 RDW 18.0 H Plt Count 160 MPV 11.7 Immature Gran % (Auto) 1.0 H Neut % (Auto) 84.2 H Lymph % (Auto) 3.6 L [place] % (Auto) 10.1 Eos % (Auto) 1.0 Baso % (Auto) 0.1 Lymph # (Auto) 0.3 L [place] # (Auto) 0.8 Eos # (Auto) 0.1 Baso # (Auto) 0.0 Abs Immat Gran (auto) 0.08 H Absolute Neuts (auto) 6.9 Absolute Nucleated RBC 0.000 Nucleated RBC % (auto) 0.0 Smear Tech's Comments VERIFIED Sodium Potassium Chloride Carbon Dioxide Anion Gap BUN Creatinine Estim Creat Clear Calc Estimated GFR Random Glucose Calcium TSH 0.48 Blood Type O Positive Antibody Screen POSITIVE Antibody Identification Anti-Fya Crossmatch See Detail Crossmatch ([facility]) See Detail 10/25/20 05:59 WBC RBC Hgb Hct MCV MCH MCHC RDW Plt Count MPV Immature Gran % (Auto) Neut % (Auto) Lymph % (Auto) [place] % (Auto) Eos % (Auto) Baso % (Auto) Lymph # (Auto) [place] # (Auto) Eos # (Auto) Baso # (Auto) Abs Immat Gran (auto) Absolute Neuts (auto) Absolute Nucleated RBC Nucleated RBC % (auto) Smear Tech's Comments Sodium 141 Potassium 4.3 Chloride 101 Carbon Dioxide 34 H Anion Gap 10 L BUN 11 Creatinine 0.53 Estim Creat Clear Calc 42.5 Estimated GFR > 60 Random Glucose 64 D Calcium 7.5 L TSH Blood Type Antibody Screen Antibody Identification Crossmatch Crossmatch ([facility]) Microbiology Microbiology Results: Microbiology 10/21/20 19:04 Blood - Venous Blood Culture - Preliminary No growth after 48 hours. 10/21/20 19:04 Blood - Venous Blood Culture - Preliminary No growth after 48 hours. Assessment and Plan (1) GI bleed: Status: Acute (2) Acute exacerbation of COPD with asthma: Status: Acute Assessment and Plan: hospital d#4 74yo F with COPD, recent admission for anemia during which she was FOBT-negative admitted for symptomatic anemia, FOBT-positive stool, COPD exacerbation, orthostatic hypotension # orthostatic hypotension - hold metoprolol, give another 1L NS # anemia due to GI blood loss - held apixaban - 1u pRBCs transfused on admission - EGD 10/23 normal, C-scope cancelled due to inadequate prep with retained stool in rectum - monitor Hb and discuss timing of C-scope with GI - on MiraLax for constipation # COPD exacerbation - d#3/5 steroids, prn bronchodilators, continue LABA/ICS/LAMA, azithromycin d#4/5 # pAF - hold metoprolol due to orthostatic hypotension - hold apixaban due to GI bleed # severe protein-calorie malnutrition - supplements # tobacco abuse - accepts NRT # dispo - home with VNA after resolution of orthostatic hypotension and GI blood loss updated pt's son Thien [phone]
--- NOTE | 2020-10-25 17:42 | PM.GIPN ---
Subjective Subjective Date of Service: 10/26/20 Interval History: 74 yo female who had had an egd on10/[address] Bonner. Hospitalist was not sure whether she would be having a colonoscopy or not. Her colon prep had been unremarkable. There is one positive hemoccult report on the chart. Patient tells me that she is still having problems with not moving her bowels. She also tells me that when she tries to get oob she is very Dizzy. She has even had falls @ home. (Observed here to have postural hypotension since she has been in hospital--hospitalist service is aware.) Physical Exam Vital Signs: Vital Signs: Last Vital Signs Temp 97.6 F 10/25/20 16:00 Pulse 76 10/25/20 16:00 Resp 20 10/25/20 16:00 BP 98/52 L 10/25/20 16:00 Pulse Ox 99 10/25/20 16:00 Body Mass Index 11.8 Const: General: cooperative and comfortable Nutritional Appearance: underweight Orientation/consciousness: patient oriented x3 Limitations: ambulation with walker (@ home, she has not been oob much here.) Resp: Effort & Inspection: normal respiratory effort and able to speak in complete sentences Cardio: Rate: regular rate Rhythm: regular rhythm GI: Inspection: No distended Palpation (GI): Soft to palpation, nontender and no masses Rectal Exam - Female: deferred Neuro: General: patient oriented x3 Objective Data Labs CBC & Chem 7: 10/26/20 05:31 10/25/20 05:59 Labs: Laboratory Results - last 24 hr 10/21/20 10/25/20 10/25/20 23:39 05:58 05:59 WBC 8.2 RBC 2.51 L Hgb 8.7 L Hct 26.3 L MCV 104.8 H MCH 34.7 H MCHC 33.1 RDW 18.0 H Plt Count 160 MPV 11.7 Immature Gran % (Auto) 1.0 H Neut % (Auto) 84.2 H Lymph % (Auto) 3.6 L [place] % (Auto) 10.1 Eos % (Auto) 1.0 Baso % (Auto) 0.1 Lymph # (Auto) 0.3 L [place] # (Auto) 0.8 Eos # (Auto) 0.1 Baso # (Auto) 0.0 Abs Immat Gran (auto) 0.08 H Absolute Neuts (auto) 6.9 Absolute Nucleated RBC 0.000 Nucleated RBC % (auto) 0.0 Smear Tech's Comments VERIFIED Sodium Potassium Chloride Carbon Dioxide Anion Gap BUN Creatinine Estim Creat Clear Calc Estimated GFR Random Glucose Calcium TSH 0.48 Blood Type O Positive Antibody Screen POSITIVE Antibody Identification Anti-Fya Crossmatch See Detail Crossmatch ([facility]) See Detail 10/25/20 05:59 WBC RBC Hgb Hct MCV MCH MCHC RDW Plt Count MPV Immature Gran % (Auto) Neut % (Auto) Lymph % (Auto) [place] % (Auto) Eos % (Auto) Baso % (Auto) Lymph # (Auto) [place] # (Auto) Eos # (Auto) Baso # (Auto) Abs Immat Gran (auto) Absolute Neuts (auto) Absolute Nucleated RBC Nucleated RBC % (auto) Smear Tech's Comments Sodium 141 Potassium 4.3 Chloride 101 Carbon Dioxide 34 H Anion Gap 10 L BUN 11 Creatinine 0.53 Estim Creat Clear Calc 42.5 Estimated GFR > 60 Random Glucose 64 D Calcium 7.5 L TSH Blood Type Antibody Screen Antibody Identification Crossmatch Crossmatch ([facility]) Microbiology Microbiology Results: Microbiology 10/21/20 19:04 Blood - Venous Blood Culture - Preliminary No growth after 48 hours. 10/21/20 19:04 Blood - Venous Blood Culture - Preliminary No growth after 48 hours. Progress Note: A&P Assessment and plan (1) Anemia: Status: Acute Assessment and Plan: Multifactorial--has some CKI. She is also somewhat malnourished. (2) Heme positive stool: Status: Acute Assessment and Plan: I have ordered repeat hemoccults. Will contact Dr. Bonner to see if he wants to do any further testing with this patient in house. REMINDER SHE WAS DISIMPACTED MANUALLY IN THE ER. I have notified Dr. Bonner of concerns. He told me he had spoken to her post procedure and she @ that was inclined to not have further testing done. He will reevaluate on 10/26. Fall Risk Details Current Medications: Current Medications Generic Name Dose Route Start Last Admin Trade Name Freq PRN Reason Stop Dose Admin Acetaminophen 650 mg 10/22/20 00:36 10/25/20 04:07 Acetaminophen 325 Mg Tablet PO 650 mg Q6H PRN Administration Pain, Mild (Pain Scale 1-3) Albuterol/Ipratropium 3 ml 10/22/20 08:00 10/25/20 15:08 Albuterol/Iprat 2.5/0.5mg 3 Ml Ampul.Neb INHALE Not Given RQ4H WHILE AWAKE MARCOS Albuterol/Ipratropium 3 ml 10/22/20 03:10 Albuterol/Iprat 2.5/0.5mg 3 Ml Ampul.Neb INHALE RQ4H PRN Shortness of Breath/Wheezing Azithromycin 500 mg 10/22/20 20:00 10/24/20 20:11 Azithromycin 500 Mg Tablet PO 10/27/20 06:00 500 mg Q24H MARCOS Administration Buspirone HCl 5 mg 10/22/20 09:00 10/25/20 14:26 Buspirone Hcl 5 Mg Tablet PO 5 mg TID MARCOS Administration Fluticasone/Vilanterol 1 puff 10/26/20 08:00 Fluticasone/Vilanterol 200/25 Blst.W.Dev INHALE RDAILY MARCOS Sodium Chloride 1,000 mls @ 100 mls/hr 10/25/20 09:15 10/25/20 17:38 Ns IVCONT 10/25/20 19:14 100 mls/hr .Q10H MARCOS Infusion Lorazepam 0.5 mg 10/22/20 00:36 10/23/20 07:40 Lorazepam 0.5 Mg Tablet PO 0.5 mg Q8H PRN Administration anxiety Meclizine HCl 12.5 mg 10/22/20 00:36 10/23/20 14:24 Meclizine Hcl 12.5 Mg Tablet PO 12.5 mg TID PRN Administration Dizziness Methylprednisolone Sodium Succinate 40 mg 10/24/20 09:00 10/25/20 07:55 Methylprednisolone Sod Succ/Pf 40 Mg/Ml Vial IVPUSH 10/27/20 12:00 40 mg DAILY MARCOS Administration Metoprolol Tartrate 12.5 mg 10/22/20 09:00 10/24/20 09:01 Metoprolol Tartrate 25 Mg Tablet PO Not Given BID MARCOS Protocol Nicotine 14 mg 10/24/20 09:00 10/25/20 08:05 Nicotine 14 Mg Patch.Td24 TRANSDERMA 14 mg DAILY MARCOS Administration Omeprazole 20 mg 10/24/20 06:30 10/25/20 05:46 Omeprazole 20 Mg Capsule.Dr PO 20 mg DAILY@0630 MARCOS Administration Ondansetron HCl 4 mg 10/22/20 00:36 Ondansetron Hcl 4 Mg/2 Ml Vial IVPUSH Q8H PRN Nausea and Vomiting Oxycodone HCl 10 mg 10/22/20 02:06 10/25/20 13:16 Oxycodone Hcl Immed Release 5 Mg Tablet PO 10 mg Q6H PRN Administration Mild Pain (Scale Score 1-4) Pharmacy Consult 1 each 10/21/20 21:37 Consult Rx Perform Med Rec MISCELLANE ONCE PRN Consult order Polyethylene Glycol 17 gm 10/23/20 15:25 10/25/20 08:05 Polyethylene Glycol 3350 17 Gm Powd.Pack PO Not Given DAILY MARCOS Senna/Docusate Sodium 2 tab 10/23/20 21:00 10/25/20 08:05 Sennosides/Docusate Sodium Tablet PO 2 tab BID MARCOS Administration Sodium Chloride 3 ml 10/22/20 00:36 10/25/20 14:26 0.9 % Sodium Chloride Flush 3 Ml Syringe IVFLUSH Not Given QSHIFT [facility] Tiotropium [place] 1 puff 10/26/20 08:00 Tiotropium [place] 18 Mcg Cap.W.Dev INHALE RDAILY [facility] Zolpidem Tartrate 5 mg 10/22/20 00:36 10/24/20 20:11 Zolpidem Tartrate 5 Mg Tablet PO 5 mg BEDTIME PRN Administration insomnia Time Spent With Patient Time: Total time spent is greater than 50% in coordination of care (as documented) at patient's floor/unit and/or counseling patient: On need to improve or lessen constipation problem. Possibility of a colonoscopy but need to get bowels moving first. 20min. Time with patient: 15 - 24 minutes
[2020-10-25] MEDS: Azithromycin 500 MG TABLET PO (20:13)
[2020-10-25] MEDS: LORazepam 0.5 MG TABLET PO (20:13)
[2020-10-25] MEDS: Zolpidem Tartrate 5 MG TABLET PO (23:04)
[2020-10-26] VITALS (7 sets, daily range): BP systolic 92–114; BP diastolic 34–51; PULSE 77–99; RESP 18–20; TEMP 36–36.7; O2SAT 93–100; BMI 13.4
[2020-10-26] MEDS: oxyCODONE HCl Immed Release 5 MG TABLET 10 MG PO ×4 (04:38→22:28)
[2020-10-26] MEDS: Omeprazole 20 MG CAPSULE.DR PO (06:17)
[2020-10-26 06:21] LABS: Basophils Percent Auto 0.1 % (0-2); MANUAL DIFF FLAG SCAN; Mean Corpuscular Volume 103.9 fL (80-98); PLT CLUMP 1; SCAN SMEAR FLAG 1
[2020-10-26 06:23] LABS: Eosinophils Absolute Auto 0.2 X10*3/uL (0.0-0.4); Eosinophils Percent Auto 2.7 % (0-4); Hematocrit 23.7 % (37-47); Hemoglobin 7.8 g/dl (12.0-16.0); Imm Gran Abs Auto 0.08 X10*3/uL (0.00-0.03); Imm Gran Pct Auto 1.1 % (0.0-0.4); Lymphocytes Absolute Auto 0.4 X10*3/uL (1.2-4.9); Lymphocytes Percent Auto 5.8 % (20-40); Mean Corpuscular HGB Conc 32.9 g/dl (31.0-35.0); Mean Corpuscular Hemoglobin 34.2 pg (27.0-33.0); Mean Platelet Volume 11.4 fL (9.4-12.3); Monocytes Absolute Auto 0.6 X10*3/uL (0.1-1.2); Monocytes Percent Auto 8.7 % (2-11); Neutrophils Absolute Auto 5.8 X10*3/uL (2.0-8.3); Neutrophils Percent Auto 81.6 % (45-73); Platelet Count 124 X10*3/uL (160-400); Red Blood Count 2.28 X10*6/uL (4.20-5.50); Red Cell Distribution Width 17.6 % (11.0-16.0)
[2020-10-26 06:29] LABS: White Blood Count 7.1 X10*3/uL (4.8-10.8)
[2020-10-26 06:50] LABS: SLIDE REVIEW VERIFIED
[2020-10-26] MEDS: Fluticasone/Vilanterol 200/25 BLST.W.DEV 1 PUFF INHALE (07:58)
[2020-10-26] MEDS: Albuterol/Iprat 2.5/0.5MG 3 ML AMPUL.NEB INHALE ×4 (07:58→20:11)
--- NOTE | 2020-10-26 08:48 | PM.GIPN ---
Subjective Subjective Date of Service: 10/26/20 Interval History: feels well, no reported bleeding Physical Exam Vital Signs: Vital Signs: Last Vital Signs Temp 97.5 F 10/26/20 04:00 Pulse 77 10/26/20 08:01 Resp 20 10/26/20 04:00 BP 99/47 L 10/26/20 04:00 Pulse Ox 99 10/26/20 04:00 Body Mass Index 13.4 Const: General: comfortable, alert and awake GI: Other: soft and nontender Inspection: Yes normal to inspection Extrem: Other: without edema Objective Data Labs CBC & Chem 7: 10/26/20 05:31 10/25/20 05:59 Progress Note: A&P Assessment and plan (1) Heme positive stool: Status: Acute Assessment and Plan: hematocrit lower without evidence of active bleeding may benefit from a blood transfusion given underlying COPD discussed colonoscopy again, she is now agreeable to proceed. she is aware of risks and benefits. clear liquids to begin after breakfast, golytely to start at 1300 NPO after 2400 except meds discussed with nursing. Time Spent With Patient Time: Total time spent is greater than 50% in coordination of care (as documented) at patient's floor/unit and/or counseling patient: Time with patient: less than 15 minutes
[2020-10-26] MEDS: polyethylene glycoL 3350 17 GM POWD.PACK PO (08:56)
[2020-10-26] MEDS: Sennosides/Docusate Sodium TABLET 2 TAB PO ×2 (08:56→22:29)
[2020-10-26] MEDS: Nicotine 14 MG PATCH.TD24 TRANSDERMA (08:56)
[2020-10-26] MEDS: busPIRone HCl 5 MG TABLET PO ×3 (08:56→22:29)
[2020-10-26] MEDS: 0.9 % Sodium Chloride Flush 3 ML SYRINGE IVFLUSH ×2 (08:57→16:55)
[2020-10-26] MEDS: LORazepam 0.5 MG TABLET PO ×2 (12:11→20:46)
--- NOTE | 2020-10-26 14:22 | HO.PM.IMPN ---
Subjective Subjective Date of Service: 10/26/20 Interval History: Patient seen and examined at bedside. She is feeling comfortable, her breathing is improving but she said that it gets worse with ambulation. She has abdominal pain nausea or vomiting. She is awaiting, appy tomorrow. She is moving her bowels and currently taking MiraLax. Physical Exam Vital Signs: Vital Signs: Last Vital Signs Temp 98.1 F 10/26/20 12:00 Pulse 99 10/26/20 12:00 Resp 20 10/26/20 12:00 BP 94/46 L 10/26/20 12:00 Pulse Ox 99 10/26/20 12:00 Body Mass Index 13.4 Const: General: cooperative and no acute distress Orientation/consciousness: patient oriented x3 Eyes: General: appearance normal, both eyes and all related structures Pupils: Equal, round and reactive pupils present Resp: Other: Has audible wheezing Effort & Inspection: normal respiratory effort and able to speak in complete sentences Cardio: Rate: regular rate Rhythm: regular rhythm GI: Palpation (GI): Soft to palpation Auscultation: normal bowel sounds Skin: General skin exam: no rashes or lesions noted Neuro: General: patient oriented x3 Cranial nerves: Yes Equal, round and reactive pupils present Cognition (Neuro): normal cognition Extrem: General: Yes normal to inspection and Yes no pedal edema Objective Data Current Medications Generic Name Dose Route Start Last Admin Trade Name Freq PRN Reason Stop Dose Admin Acetaminophen 650 mg 10/22/20 00:36 10/25/20 04:07 Acetaminophen 325 Mg Tablet PO 650 mg Q6H PRN Administration Pain, Mild (Pain Scale 1-3) Albuterol/Ipratropium 3 ml 10/22/20 08:00 10/26/20 11:03 Albuterol/Iprat 2.5/0.5mg 3 Ml Ampul.Neb INHALE 3 ml RQ4H WHILE AWAKE MARCOS Administration Albuterol/Ipratropium 3 ml 10/22/20 03:10 Albuterol/Iprat 2.5/0.5mg 3 Ml Ampul.Neb INHALE RQ4H PRN Shortness of Breath/Wheezing Azithromycin 500 mg 10/22/20 20:00 10/25/20 20:13 Azithromycin 500 Mg Tablet PO 10/27/20 06:00 500 mg Q24H MARCOS Administration Bisacodyl 10 mg 10/26/20 16:00 Bisacodyl 5 Mg Tablet. PO 10/26/20 16:01 ONCE@1600 MARCOS Buspirone HCl 5 mg 10/22/20 09:00 10/26/20 08:56 Buspirone Hcl 5 Mg Tablet PO 5 mg TID MARCOS Administration Fluticasone/Vilanterol 1 puff 10/26/20 08:00 10/26/20 07:58 Fluticasone/Vilanterol 200/25 Blst.W.Dev INHALE 1 puff RDAILY MARCOS Administration Lorazepam 0.5 mg 10/22/20 00:36 10/26/20 12:11 Lorazepam 0.5 Mg Tablet PO 0.5 mg Q8H PRN Administration anxiety Meclizine HCl 12.5 mg 10/22/20 00:36 10/23/20 14:24 Meclizine Hcl 12.5 Mg Tablet PO 12.5 mg TID PRN Administration Dizziness Methylprednisolone Sodium Succinate 40 mg 10/24/20 09:00 10/26/20 08:56 Methylprednisolone Sod Succ/Pf 40 Mg/Ml Vial IVPUSH 10/27/20 12:00 40 mg DAILY MARCOS Administration Metoprolol Tartrate 12.5 mg 10/22/20 09:00 10/24/20 09:01 Metoprolol Tartrate 25 Mg Tablet PO Not Given BID [facility] Protocol Nicotine 14 mg 10/24/20 09:00 10/26/20 08:56 Nicotine 14 Mg Patch.Td24 TRANSDERMA 14 mg DAILY MARCOS Administration Omeprazole 20 mg 10/24/20 06:30 10/26/20 06:17 Omeprazole 20 Mg Capsule. PO 20 mg DAILY@0630 MARCOS Administration Ondansetron HCl 4 mg 10/22/20 00:36 Ondansetron Hcl 4 Mg/2 Ml Vial IVPUSH Q8H PRN Nausea and Vomiting Oxycodone HCl 10 mg 10/22/20 02:06 10/26/20 08:56 Oxycodone Hcl Immed Release 5 Mg Tablet PO 10 mg Q6H PRN Administration Mild Pain (Scale Score 1-4) Pharmacy Consult 1 each 10/21/20 21:37 Consult Rx Perform Med Rec MISCELLANE ONCE PRN Consult order Polyethylene Glycol 17 gm 10/23/20 15:25 12/14/20 08:56 Polyethylene Glycol 3350 17 Gm Powd.Pack PO 17 gm DAILY MARCOS Administration Senna/Docusate Sodium 2 tab 10/23/20 21:00 10/26/20 08:56 Sennosides/Docusate Sodium Tablet PO 2 tab BID MRACOS Administration Sodium Chloride 3 ml 10/22/20 00:36 10/26/20 08:57 0.9 % Sodium Chloride Flush 3 Ml Syringe IVFLUSH 3 ml QSHIFT MARCOS Administration Tiotropium [place] 1 puff 10/26/20 08:00 10/26/20 07:59 Tiotropium [place] 18 Mcg Cap.W.Dev INHALE Not Given RDAILY MARCOS Zolpidem Tartrate 5 mg 10/22/20 00:36 10/25/20 23:04 Zolpidem Tartrate 5 Mg Tablet PO 5 mg BEDTIME PRN Administration insomnia Labs CBC & Chem 7: 10/26/20 05:31 10/25/20 05:59 Microbiology Microbiology Results: Microbiology 10/21/20 19:04 Blood - Venous Blood Culture - Preliminary No growth after 48 hours. 10/21/20 19:04 Blood - Venous Blood Culture - Preliminary No growth after 48 hours. Assessment and Plan (1) Heme positive stool: Status: Acute (2) GI bleed: Status: Acute (3) Acute exacerbation of COPD with asthma: Status: Acute (4) Anemia: Status: Acute Assessment and Plan: hospital d#5 74yo F with COPD, recent admission for anemia during which she was FOBT-negative admitted for symptomatic anemia, FOBT-positive stool, COPD exacerbation, orthostatic hypotension # anemia due to GI blood loss - held apixaban - 1u pRBCs transfused on admission - Hgb did drop from 8.7 yesterday to 7.8 today with no evidence of GI bleed at this time - EGD 10/23 normal, C-scope cancelled due to inadequate prep with retained stool in rectum - Pt will have colonscopy prep today and undergo colonoscopy in AM - Will transfuse 1 unit of pRBC as she dropped 1 unit overnight with no evidence of overt bleed - monitor Hb and discuss timing of C-scope with GI - on MiraLax for constipation # COPD exacerbation - d#4/5 steroids, prn bronchodilators, continue LABA/ICS/LAMA, azithromycin d#5/ # pAF - hold metoprolol due to orthostatic hypotension - hold apixaban due to GI bleed # severe protein-calorie malnutrition - supplements # tobacco abuse - accepts NRT # Orthostatic hypotension - Pt hypotensive today - will receive 1 unit of prbc and will give her 500CC of fluids # dispo - home with VNA after resolution of orthostatic hypotension and GI blood loss
--- NOTE | 2020-10-26 14:44 | MHC.CM.PN ---
Patient is NPO for a colonoscopy today. Discharge plan is home with services from [facility]. Son will provide transportation. CM will continue to follow patient for discharge needs.
--- NOTE | 2020-10-26 14:58 | MHC.CLN ---
F/U PO INTAKE 75%AVG DIET RX: C/L-APPROPRIATE WT INCREASED TO 73#-MONITOR CLOSELY WILL ADD ENSURE CLEAR TO C/L DIET TO INCREASE KCALS FOLLOWING
[2020-10-26] MEDS: Lactated Ringers 500 ML IVCONT (15:35)
[2020-10-26] MEDS: polyethylene glycoL 3350 17 GM POWD.PACK 238 GM PO (15:35)
[2020-10-26] MEDS: bisacodyL 5 MG TABLET.DR 10 MG PO ×2 (15:36→23:54)
[2020-10-26] MEDS: Azithromycin 500 MG TABLET PO (20:46)
[2020-10-27] VITALS (18 sets, daily range): BP systolic 98–124; BP diastolic 34–55; PULSE 82–101; RESP 16–22; TEMP 35.5–37.2; O2SAT 92–100; BMI 10.9
[2020-10-27] MEDS: 0.9 % Sodium Chloride Flush 3 ML SYRINGE IVFLUSH ×4 (00:30→23:13)
[2020-10-27] MEDS: oxyCODONE HCl Immed Release 5 MG TABLET 10 MG PO ×3 (05:24→18:21)
[2020-10-27] MEDS: Omeprazole 20 MG CAPSULE.DR PO (05:25)
[2020-10-27] MEDS: Albuterol/Iprat 2.5/0.5MG 3 ML AMPUL.NEB INHALE ×3 (07:34→21:06)
[2020-10-27] MEDS: Fluticasone/Vilanterol 200/25 BLST.W.DEV 1 PUFF INHALE (07:34)
--- NOTE | 2020-10-27 07:39 | PC.NURSE ---
BLOOD TRANSFUSION COMPLETED AT 0400, PT ALERT AND ORIENTED, NO S/S OF ANY REACTIONS, PATIENT TOLERATED WELL. NO ACTIVE POST HGB/HCT LABS, NOTIFIED DR. BJ ROSS. PER , WILL ORDER LABS. DAY SHIFT RN NOTIFIED.
[2020-10-27] MEDS: Nicotine 14 MG PATCH.TD24 TRANSDERMA (08:23)
[2020-10-27] MEDS: Sennosides/Docusate Sodium TABLET 2 TAB PO ×2 (08:23→22:38)
[2020-10-27] MEDS: polyethylene glycoL 3350 17 GM POWD.PACK PO (08:23)
[2020-10-27] MEDS: busPIRone HCl 5 MG TABLET PO ×3 (08:24→22:38)
[2020-10-27 10:10] LABS: Hematocrit 29.7 % (37-47); Hemoglobin 10.2 g/dl (12.0-16.0)
--- NOTE | 2020-10-27 14:27 | PC.NURSE ---
PATIENT COCCYX RED, NO SKIN BREAKDOWN NOTED.
--- NOTE | 2020-10-27 14:27 | PM.OP ---
Brief Operative Note Date of Service: 10/27/20 Pre-op diagnosis: anemia, heme positive stools Post-op diagnosis: same (colon polyp) Procedure: colonoscopy Surgeon: David Bonner Anesthesia: MAC Estimated blood loss (mL): 0 Condition: stable Disposition: PACU
--- NOTE | 2020-10-27 14:29 | PM.EVENT ---
Event Note Date of Service: 10/27/20 Event Note: colonoscopy, note dictated large fecal impaction, manually removed poor prep, no mass lesions seen 10 mm polyp at 20 cm snared advance diet no anticoagulation for 3 days f/u biopsy results.
--- NOTE | 2020-10-27 14:50 | OP_ITS ---
SURGEON: David Bonner MD INDICATIONS: Iron-deficiency anemia and Hemoccult-positive stools. PREOPERATIVE DIAGNOSIS: POSTOPERATIVE DIAGNOSIS: PROCEDURE PERFORMED: Colonoscopy to the terminal ileum with snare polypectomy. ESTIMATED BLOOD LOSS: COMPLICATIONS: ANESTHESIA: ASSISTANTS: SPECIMENS: MEDICATIONS: Monitored anesthesia care. DESCRIPTION OF PROCEDURE: History and physical performed. The risks and benefits of the procedure were explained to the patient. Informed consent was obtained. The patient was placed in the left lateral decubitus position. A digital rectal exam was performed and revealed a fecal impaction. The Olympus pediatric video colonoscope was introduced into the rectum and confirmed the fecal impaction. Disimpaction was performed. The scope was reinserted and advanced to the cecum. Examination was performed and the scope was removed. She tolerated the procedure well and taken to recovery area in stable condition. FINDINGS: The patient had a large fecal impaction of solid stool. This was mainly disimpacted and following this, the scope was able to be advanced to the cecum. The cecum was identified by transillumination, palpation, and identification of ileocecal valve. The mucosa in the cecum appeared normal. The terminal ileum was normal. There was a large amount of liquid stool and some undigested food material. This limited examination of the cecum, parts of the transverse colon, and parts of the descending and sigmoid colon. No mass lesions were identified of significant size. There was a 10 mm polyp at 20 cm, which was removed with a snare. Retroflexed examination showed internal hemorrhoids. The procedure was extended and difficult due to the fecal impaction and the poor prep. IMPRESSION: 1. Colon polyp. 2. Fecal impaction. 3. No mass lesion identified. RECOMMENDATIONS: 1. Follow up the biopsy results. 2. Hold anticoagulation for 3 days because of polypectomy. MD JOSEPH Pearce/CYDNEY / [id number]
--- NOTE | 2020-10-27 15:43 | HO.PM.IMPN ---
Subjective Subjective Date of Service: 10/27/20 Interval History: Pt seen and examined at bedside. No overnight events, scheduled for colonoscopy this am. denies any abdominal pain, her SOB improving, with no wheezing this am, no chest pain, no palpitaitons Physical Exam Vital Signs: Vital Signs: Last Vital Signs Temp 98.9 F 10/27/20 14:26 Pulse 95 10/27/20 15:38 Resp 20 10/27/20 15:38 BP 102/45 L 10/27/20 15:38 Pulse Ox 99 10/27/20 15:38 Body Mass Index 10.9 Const: General: cooperative and no acute distress Orientation/consciousness: patient oriented x3 Resp: Effort & Inspection: normal respiratory effort and able to speak in complete sentences Auscultation: clear to auscultation bilaterally Cardio: Rate: regular rate Rhythm: regular rhythm GI: Palpation (GI): Soft to palpation Auscultation: normal bowel sounds Neuro: General: patient oriented x3 Cognition (Neuro): normal cognition Extrem: General: Yes normal to inspection and Yes no pedal edema Objective Data Current Medications Generic Name Dose Route Start Last Admin Trade Name Freq PRN Reason Stop Dose Admin Acetaminophen 650 mg 10/22/20 00:36 10/25/20 04:07 Acetaminophen 325 Mg Tablet PO 650 mg Q6H PRN Administration Pain, Mild (Pain Scale 1-3) Albuterol/Ipratropium 3 ml 10/22/20 08:00 10/27/20 15:27 Albuterol/Iprat 2.5/0.5mg 3 Ml Ampul.Neb INHALE Not Given RQ4H WHILE AWAKE MARCOS Albuterol/Ipratropium 3 ml 10/22/20 03:10 Albuterol/Iprat 2.5/0.5mg 3 Ml Ampul.Neb INHALE RQ4H PRN Shortness of Breath/Wheezing Buspirone HCl 5 mg 10/22/20 09:00 10/27/20 08:24 Buspirone Hcl 5 Mg Tablet PO 5 mg TID MARCOS Administration Fluticasone/Vilanterol 1 puff 10/26/20 08:00 10/27/20 07:34 Fluticasone/Vilanterol 200/25 Blst.W.Dev INHALE 1 puff RDAILY MARCOS Administration Meclizine HCl 12.5 mg 10/22/20 00:36 10/23/20 14:24 Meclizine Hcl 12.5 Mg Tablet PO 12.5 mg TID PRN Administration Dizziness Metoprolol Tartrate 12.5 mg 10/22/20 09:00 10/24/20 09:01 Metoprolol Tartrate 25 Mg Tablet PO Not Given BID [facility] Protocol Nicotine 14 mg 10/24/20 09:00 10/27/20 08:23 Nicotine 14 Mg Patch.Td24 TRANSDERMA 14 mg DAILY [facility] Administration Omeprazole 20 mg 10/24/20 06:30 10/27/20 05:25 Omeprazole 20 Mg Capsule.Dr PO 20 mg DAILY@0630 [facility] Administration Ondansetron HCl 4 mg 10/22/20 00:36 Ondansetron Hcl 4 Mg/2 Ml Vial IVPUSH Q8H PRN Nausea and Vomiting Oxycodone HCl 10 mg 10/27/20 04:29 10/27/20 12:05 Oxycodone Hcl Immed Release 5 Mg Tablet PO 10 mg Q6H PRN Administration Pain, Mild (Pain Scale 1-3) Pharmacy Consult 1 each 10/21/20 21:37 Consult Rx Perform Med Rec MISCELLANE ONCE PRN Consult order Polyethylene Glycol 17 gm 10/23/20 15:25 10/27/20 08:23 Polyethylene Glycol 3350 17 Gm Powd.Pack PO 17 gm DAILY [facility] Administration Senna/Docusate Sodium 2 tab 10/23/20 21:00 10/27/20 08:23 Sennosides/Docusate Sodium Tablet PO 2 tab BID MARCOS Administration Sodium Chloride 3 ml 10/22/20 00:36 10/27/20 08:24 0.9 % Sodium Chloride Flush 3 Ml Syringe IVFLUSH 3 ml QSHIFT [facility] Administration Tiotropium [place] 1 puff 10/26/20 08:00 10/27/20 07:34 Tiotropium [place] 18 Mcg Cap.W.Dev INHALE Not Given RDAILY [facility] Labs CBC & Chem 7: 10/27/20 09:23 10/25/20 05:59 Microbiology Microbiology Results: Microbiology 10/21/20 19:04 Blood - Venous Blood Culture - Final No growth after 5 days. 10/21/20 19:04 Blood - Venous Blood Culture - Final No growth after 5 days. Assessment and Plan (1) Heme positive stool: Status: Acute (2) GI bleed: Status: Acute (3) Acute exacerbation of COPD with asthma: Status: Acute (4) Anemia: Status: Acute Assessment and Plan: hospital d#6 74yo F with COPD, recent admission for anemia during which she was FOBT-negative admitted for symptomatic anemia, FOBT-positive stool, COPD exacerbation, orthostatic hypotension # anemia due to GI blood loss - Continue to hold epixaben - s/p 2 units of pRBC ( last tranfused 10/26 due to low hgb) - drop of hgbon 10/26 with no evidence of overt GI bleed - EGD 10/23 normal, C-scope cancelled due to inadequate prep with retained stool in rectum - Planned for colonoscopy today - Follow H&H daily - on MiraLax for constipation # COPD exacerbation - compelted 5 days of solu-medrol, will give another 5 days of PO steroids - prn bronchodilators, continue LABA/ICS/LAMA, azithromycin d#03/17 # pAF - hold metoprolol due to orthostatic hypotension - hold apixaban due to GI bleed # severe protein-calorie malnutrition - supplements # tobacco abuse - accepts NRT # Orthostatic hypotension - Will recheck daily DVT ppx: SCDs # dispo - home with [facility]NA after resolution of orthostatic hypotension and GI blood loss
[2020-10-27] MEDS: LORazepam 0.5 MG TABLET PO (23:13)
[2020-10-28] VITALS (7 sets, daily range): BP systolic 107–150; BP diastolic 41–100; PULSE 84–109; RESP 18; TEMP 36.4–36.6; O2SAT 92–99; BMI 10.6
[2020-10-28] MEDS: oxyCODONE HCl Immed Release 5 MG TABLET 10 MG PO ×3 (00:40→13:36)
[2020-10-28] MEDS: Omeprazole 20 MG CAPSULE.DR PO (06:17)
[2020-10-28] MEDS: Fluticasone/Vilanterol 200/25 BLST.W.DEV 1 PUFF INHALE (07:45)
[2020-10-28] MEDS: Albuterol/Iprat 2.5/0.5MG 3 ML AMPUL.NEB INHALE ×3 (07:46→13:48)
[2020-10-28 08:11] LABS: Hemoglobin 9.2 g/dl (12.0-16.0)
[2020-10-28 08:13] LABS: Hematocrit 27.1 % (37-47)
[2020-10-28] MEDS: busPIRone HCl 5 MG TABLET PO (08:14)
[2020-10-28] MEDS: LORazepam 0.5 MG TABLET PO ×2 (08:14→13:35)
[2020-10-28] MEDS: Nicotine 14 MG PATCH.TD24 TRANSDERMA (08:14)
[2020-10-28] MEDS: predniSONE 20 MG TABLET 40 MG PO (08:15)
[2020-10-28] MEDS: polyethylene glycoL 3350 17 GM POWD.PACK PO (08:15)
[2020-10-28] MEDS: Sennosides/Docusate Sodium TABLET 2 TAB PO (08:17)
[2020-10-28] MEDS: 0.9 % Sodium Chloride Flush 3 ML SYRINGE IVFLUSH (08:17)
--- NOTE | 2020-10-28 11:45 | MHC.CM.PN ---
Patient will be discharged home today with resumption of services from [facility]. Marshall Neumann [phone] will provide transport.
--- NOTE | 2020-10-28 13:09 | PM.DS ---
DS: Providers Provider Date of admission: 10/21/20 23:04 Primary care physician: Unknown Physician Consults: 10/22/20 01:47 Consult to Gastroenterology Routine Consulting Provider: Brigida Ricardo Reason for consultation: GI bleed Has provider been notified: No DS: Diagnosis Discharge Diagnosis (1) Heme positive stool: Status: Acute (2) GI bleed: Status: Acute (3) Acute exacerbation of COPD with asthma: Status: Acute (4) Anemia: Status: Acute DS: Medications Discharge Medications Home Medications: Home Medications Medication Instructions Recorded Confirmed Combivent Respimat 1 puff INHALATION QID PRN 08/13/20 10/21/20 albuterol sulfate 1 inh INHALATION Q4-6H PRN 08/13/20 10/21/20 buspirone 5 mg PO TID 08/13/20 10/21/20 meclizine 12.5 mg PO TID PRN 08/13/20 10/21/20 metoprolol tartrate 12.5 mg PO BID 08/13/20 10/21/20 oxycodone-acetaminophen 1 tab PO Q6H PRN 08/13/20 10/21/20 Trelegy Ellipta 1 inh INHALATION DAILY 10/01/20 10/21/20 lorazepam 0.5 mg PO Q8H PRN 10/01/20 10/21/20 zolpidem 5 mg PO BEDTIME PRN 10/01/20 10/21/20 Trelegy Ellipta 1 puff PO DAILY 10/21/20 10/21/20 prednisone 10 mg PO DAILY 10/21/20 10/21/20 Previous Rx's Medication Instructions Recorded ferrous sulfate 325 mg PO BID #60 tab 08/16/20 omeprazole 20 mg PO DAILY #30 cap 08/16/20 Eliquis 2.5 mg PO BID #0 tab 10/28/20 nicotine 14 mg TRANSDERMAL DAILY 14 Days ea 10/28/20 prednisone 40 mg PO DAILY #4 tab 10/28/20 DS: Summary Hospital Course Hospital Course: History of Present Illness Date of Service: 10/21/20 Chief Complaint: Weakness, This is a 74-year-old female with past medical history of AFib, COPD, anxiety who presents to the hospital complaints of progressive shortness of breath. Patient is also complaining of increased cough and sputum production. She has no fever but has some chills, she has stabbing chest pain that occurred few days ago but is no longer present, she is constipated for more than a week, patient has no recent travel, no recent sick contacts. She has no headache, change in vision, abdominal pain nausea or vomiting, no lower extremity, no urinary symptoms. Of note patient was discharged in September after be worked up for acute anemia. At that time hemoccult was negative and patient was supposed to follow-up with Hematology-Oncology outpatient pain Labs are significant for hemoglobin of 7.5 which is around the same as the discharge in September, sodium of 141, chloride of 94, BUN of 26, total bili of 2, direct bili of 0.8, UA positive for protein some blood, negative COVID-19, Chest x-ray shows COPD with no acute intrathoracic disease. Patient was manually disimpacted in the ED on stool was Hemoccult positive. Hospital course: Patient initially admitted for COPD exacerbation and treated with course of IV steroids, breathing treatments with her shortness of breath, cough and sputum production improving. Patient is not hypoxic and will be discharged on PO steroids. She was also found to be anemic, s/p 2 units of pRBC on this admission. As pt had heme-positive stool, she was avaluated with an EGD and a colonoscopy. Colonoscopy showed a polyp with no source of bleed identified. Patient was also evaluated for her anemia on previous admission and was to follow-up with Hematology for further workup. 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 Eliquis was also held due to the anemia. GI recommended restarting her Eliquis 3 days post polypectomy. I had an extensive discussion with her son Thien regarding the risk and benefits of restarting her Eliquis for her history of A.fib. She will need to be off Eliquis for another 2 days and can resume n 10/30. He will discuss with his mother, the risk and benefits of restarting the eliquis. Pt will need follow up with GI and Hematology to further evaluate anemia Hgb is stable on day of discharge Pt will be going home on Prednisone PO Home with home health Time Spent with Patient Time attestation: Total time spent providing and/or coordinating discharge services: Physical Exam Vital Signs: Vital Signs: Last Vital Signs Temp 97.8 F 10/28/20 08:00 Pulse 102 H 10/28/20 11:33 Resp 18 10/28/20 08:00 BP 108/41 L 10/28/20 08:00 Pulse Ox 99 10/28/20 08:00 Body Mass Index 10.6 Const: General: cooperative and no acute distress Orientation/consciousness: patient oriented x3 Eyes: General: appearance normal, both eyes and all related structures Pupils: Equal, round and reactive pupils present Resp: Other: No wheezing Effort & Inspection: normal respiratory effort and able to speak in complete sentences Auscultation: clear to auscultation bilaterally Cardio: Rate: regular rate Rhythm: regular rhythm GI: Palpation (GI): Soft to palpation Auscultation: normal bowel sounds Skin: General skin exam: no rashes or lesions noted Neuro: General: patient oriented x3 Cranial nerves: Yes Equal, round and reactive pupils present Cognition (Neuro): normal cognition Extrem: General: Yes normal to inspection and Yes no pedal edema DS: Data Data Completed and Pending Completed studies during hospitalization [Text1]: Procedures Transfusion of Nonautologous Red Blood Cells into Peripheral Vein, Percutaneous Approach (10/01/20) Pending studies at discharge: Pending at discharge 10/27/20 14:11 Surgical [PTH] Routine Labs on day of discharge: 10/21/20 ECG 12 lead EKG Stat 10/21/20 Breakfast NPO Diet 10/21/20 15:55 EKG Documentation DIRECTED 10/21/20 16:12 ECG 12 lead EKG Stat Vital Signs Q30M XR chest 1V Stat 10/21/20 16:14 EKG Documentation DIRECTED 10/21/20 17:03 B Type Natriuretic Peptide Stat Basic Metabolic Panel Stat Complete Blood Count Man Dif Stat Lactic Acid Stat Liver Panel Stat Partial Thromboplastin Time Stat Prothrombin Time INR Stat SARS-CoV2/FLU/RSV Stat Troponin-I High Sensitivity Stat 10/21/20 19:04 OBSX1 Stat Blood Culture X2 [BC] Stat 10/21/20 19:49 Acetaminophen [Tylenol] 975 mg PO ONCE ONE 10/21/20 22:32 Azithromycin [Zithromax] 500 mg PO ONCE ONE 10/21/20 22:53 Transfer Order Routine 10/21/20 23:39 Antibody Identification Stat Type and Screen Stat 10/22/20 00:36 Docusate Sodium [Colace] 100 mg PO DAILY PRN Enoxaparin Sodium [Lovenox] 40 mg SUBCUT Q24H LORazepam [Ativan] 0.5 mg PO Q8H PRN Zolpidem Tartrate [Ambien] 5 mg PO BEDTIME PRN methylPREDNISolone Sod Succ/PF [SOLU-MedroL] 40 mg IVPUSH Q12H 10/22/20 01:00 cefTRIAXone sodium [Rocephin] 1 gm 0.9 % Sodium Chloride [Ns] 50 ml IV ONCE 10/22/20 01:32 cefTRIAXone sodium [Rocephin] 1 gm .ROUTE .STK-MED ONE 10/22/20 01:42 Red Blood Cells Stat 10/22/20 01:45 Lactated Ringers [Lr] 500 ml IVCONT 999 mls/hr 10/22/20 02:06 oxyCODONE HCl Immed Release [Roxicodone] 10 mg PO Q6H PRN 10/22/20 02:51 RT Smoking Initial Cessation ONCE 10/22/20 03:10 traZODone HCL [Desyrel] 25 mg PO ONCE ONE 10/22/20 06:12 Basic Metabolic Panel Routine Complete Blood Count Auto Diff Routine SLIDE REVIEW Routine Vitamin B12 and Folate Routine 10/22/20 06:30 Pantoprazole Sodium [Protonix] 40 mg IVPUSH BID@0630,1630 10/22/20 09:00 Apixaban [Eliquis] 2.5 mg PO BID Omeprazole [PriLOSEC] 20 mg PO DAILY polyethylene glycoL 3350 [Miralax] 17 gm PO DAILY 10/22/20 Breakfast Regular Diet 10/22/20 13:00 PEG 3350/Na Sulf,Bicarb,Cl/KCL [Gavilyte-C Solution] 4,000 ml PO ONCE ONE 10/22/20 Lunch Clear Liquid Diet 10/22/20 20:00 Azithromycin [Zithromax] 500 mg PO Q24H cefTRIAXone sodium [Rocephin] 1 gm 0.9 % Sodium Chloride [Ns] 50 ml IV Q24H 10/23/20 05:28 Basic Metabolic Panel Routine Complete Blood Count Auto Diff Routine Prealbumin Routine Prothrombin Time INR Routine SLIDE REVIEW Routine 10/23/20 09:57 ondansetron HCL [Zofran] 4 mg IVPUSH ONCE PRN 10/23/20 09:58 Continuous pulse oximetry CONT Vital Signs Q1H Vital Signs Q5MIN 10/23/20 10:57 Lidocaine HCl 2 % MPF [Xylocaine 2 % MPF] 5 ml .ROUTE .STK-MED ONE propofoL [Diprivan] 200 mg IVPUSH .STK-MED ONE 10/23/20 11:20 Transfer Order Routine 10/23/20 Lunch Regular Diet 10/24/20 06:24 Complete Blood Count Auto Diff Routine SLIDE REVIEW Routine 10/24/20 09:00 methylPREDNISolone Sod Succ/PF [SOLU-MedroL] 40 mg IVPUSH DAILY 10/24/20 14:45 0.9 % Sodium Chloride [Ns] 1,000 ml IVCONT 125 mls/hr 10/24/20 14:55 Vital Signs, Orthostatic QSHIFT 10/25/20 05:58 TSH reflex Free T4 Routine 10/25/20 05:59 Basic Metabolic Panel Routine Complete Blood Count Auto Diff Routine SLIDE REVIEW Routine 10/25/20 09:15 0.9 % Sodium Chloride [Ns] 1,000 ml IVCONT 100 mls/hr 10/25/20 19:38 Albuterol/Iprat 2.5/0.5MG 3 ML [Duoneb] 3 ml INHALE .STK-MED ONE 10/26/20 05:31 Complete Blood Count Auto Diff Routine SLIDE REVIEW Routine 10/26/20 13:00 bisacodyL [Dulcolax] 10 mg PO ONCE@1300 polyethylene glycoL 3350 [Miralax] 238 gm PO ONCE@1300 10/26/20 14:29 Lactated Ringers [Lr] 500 ml IVCONT 500 mls/hr 10/26/20 Lunch Clear Liquid Diet 10/26/20 16:00 bisacodyL [Dulcolax] 10 mg PO ONCE@1600 10/26/20 18:18 Antibody Identification Stat Red Blood Cells Stat Type and Screen Stat 10/27/20 09:23 Hemoglobin and Hematocrit Stat 10/27/20 Breakfast NPO Diet 10/27/20 13:10 Lidocaine HCl 2 % MPF [Xylocaine 2 % MPF] 5 ml .ROUTE .STK-MED ONE 10/27/20 13:11 propofoL [Diprivan] 200 mg IVPUSH .STK-MED ONE 10/27/20 13:36 Phenylephrine HCL 1,000 mcg IVPUSH .STK-MED ONE 10/28/20 07:01 Hemoglobin and Hematocrit DAILY@0600 10/28/20 13:02 LORazepam [Ativan] 0.5 mg PO ONCE ONE Laboratory Last Values WBC 7.1 X10*3/uL (4.8-10.8) 10/26/20 05:31 RBC 2.28 X10*6/uL (4.20-5.50) L 10/26/20 05:31 Hgb 9.2 g/dl (12.0-16.0) L 10/28/20 07:01 Hct 27.1 % (37-47) L 10/28/20 07:01 MCV 103.9 fL (80-98) H 10/26/20 05:31 MCH 34.2 pg (27.0-33.0) H 10/26/20 05:31 MCHC 32.9 g/dl (31.0-35.0) 10/26/20 05:31 RDW 17.6 % (11.0-16.0) H 10/26/20 05:31 Plt Count 124 X10*3/uL (160-400) L 10/26/20 05:31 MPV 11.4 fL (9.4-12.3) 10/26/20 05:31 Immature Gran % (Auto) 1.1 % (0.0-0.4) H 10/26/20 05:31 Neut % (Auto) 81.6 % (45-73) H 10/26/20 05:31 Lymph % (Auto) 5.8 % (20-40) L 10/26/20 05:31 [place] % (Auto) 8.7 % (2-11) 10/26/20 05:31 Eos % (Auto) 2.7 % (0-4) 10/26/20 05:31 Baso % (Auto) 0.1 % (0-2) 10/26/20 05:31 Lymph # (Auto) 0.4 X10*3/uL (1.2-4.9) L 10/26/20 05:31 [place] # (Auto) 0.6 X10*3/uL (0.1-1.2) 10/26/20 05:31 Eos # (Auto) 0.2 X10*3/uL (0.0-0.4) 10/26/20 05:31 Baso # (Auto) 0.0 X10*3/uL (0.0-0.2) 10/26/20 05:31 Abs Immat Gran (auto) 0.08 X10*3/uL (0.00-0.03) H 10/26/20 05:31 Absolute Neuts (auto) 5.8 X10*3/uL (2.0-8.3) 10/26/20 05:31 Absolute Nucleated RBC 0.000 X10*3/uL (0.0-0.012) 10/26/20 05:31 Nucleated RBC % (auto) 0.0 /100WBC (0.0-0.2) 10/26/20 05:31 Neutrophils % (Manual) 96 % (45-73) H 10/21/20 17:03 Band Neutrophils % 2 % (3-5) L 10/21/20 17:03 Monocytes % (Manual) 2 % (2-11) 10/21/20 17:03 Abs Neuts (Manual) 11.9 X10*3/uL (2.2-7.9) H 10/21/20 17:03 Monocytes # (Manual) 0.2 X10*3/uL (0.0-1.2) 10/21/20 17:03 Platelet Estimate NORMAL (NORMAL) 10/21/20 17:03 Plt Morphology Comment NORMAL 10/21/20 17:03 RBC Morphology NORMAL 10/21/20 17:03 Smear Tech's Comments VERIFIED 10/26/20 05:31 PT 11.7 SEC (10.8-13.0) D 10/23/20 05:28 INR 1.0 (0.9-1.1) 10/23/20 05:28 APTT 33.6 SEC (24.1-38.0) 10/21/20 17:03 Sodium 141 mmol/L (135-145) 10/25/20 05:59 Potassium 4.3 mmol/l (3.3-5.1) 10/25/20 05:59 Chloride 101 mmol/L (96-108) 10/25/20 05:59 Carbon Dioxide 34 mmol/L (22-29) H 10/25/20 05:59 Anion Gap 10 (12-20) L 10/25/20 05:59 BUN 11 mg/dL (9-16) 10/25/20 05:59 Creatinine 0.53 mg/dL (0.5-1.4) 10/25/20 05:59 Estim Creat Clear Calc 42.5 10/25/20 05:59 Estimated GFR > 60 10/25/20 05:59 Random Glucose 64 mg/dL (60-115) D 10/25/20 05:59 Lactic Acid 0.9 mmol/L (0.5-2.0) 10/21/20 17:03 Calcium 7.5 mg/dL (8.4-10.2) L 10/25/20 05:59 Total Bilirubin 2.0 mg/dL (0.0-1.0) H 10/21/20 17:03 Direct Bilirubin 0.8 mg/dL (0.0-0.5) H 10/21/20 17:03 AST 18 U/L (5-31) D 10/21/20 17:03 ALT 9 U/L (0-31) 10/21/20 17:03 Alkaline Phosphatase 77 U/L (39-117) D 10/21/20 17:03 Troponin I High Sens 6.9 ng/L (<3.5-17.0) 10/21/20 17:03 B-Natriuretic Peptide 69 pg/mL (<100) 10/21/20 17:03 Total Protein 6.5 g/dL (6.5-8.0) 10/21/20 17:03 Albumin 4.1 g/dL (3.5-5.0) 10/21/20 17:03 Prealbumin 12.0 mg/dL (20-40) L 10/23/20 05:28 Vitamin B12 726 pg/mL (200-900) 10/22/20 06:12 Folate 5.6 ng/mL (> or = 4.0) 10/22/20 06:12 TSH 0.48 mIU/mL (0.32-4.0) 10/25/20 05:58 Urine Color YELLOW 10/21/20 19:24 Urine Appearance CLEAR 10/21/20 19:24 Urine pH 7.0 (5.0-8.0) 10/21/20 19:24 Ur Specific [place] 1.010 (1.005-1.025) 10/21/20 19:24 Urine Protein 1+ MG/DL (NEG-TRACE) H 10/21/20 19:24 Urine Glucose (UA) NEG MG/DL (NEG) 10/21/20 19:24 Urine Ketones NEG MG/DL (NEG) 10/21/20 19:24 Urine Blood 1+ (NEG) H 10/21/20 19:24 Urine Nitrite NEG (NEG) 10/21/20 19:24 Ur Leukocyte Esterase NEG (NEG) 10/21/20 19:24 Urine RBC 1-4 /HPF (0) 10/21/20 19:24 Urine WBC 0 /HPF (0-4) 10/21/20 19:24 Ur Squamous Epith Cells NONE /LPF 10/21/20 19:24 Urine Bacteria 1+ /LPF 10/21/20 19:24 Stool Occult Blood POS (NEG) 10/21/20 19:04 Coronavirus (PCR) NEGATIVE (Negative) 10/21/20 17:03 Influenza Type A (PCR) NEGATIVE (Negative) 10/21/20 17:03 Influenza Type B (PCR) NEGATIVE (Negative) 10/21/20 17:03 RSV RNA Qual (PCR) NEGATIVE (Negative) 10/21/20 17:03 Blood Type O Positive 10/26/20 18:18 Antibody Screen POSITIVE 10/26/20 18:18 Antibody Identification Anti-Fya 10/26/20 18:18 Crossmatch See Detail 10/21/20 23:39 Crossmatch (AHG) See Detail 10/26/20 18:18 Discharge Plan Discharge Patient Disposition: Home Health Service Referrals: [facility] [Outside] Billie Yusuf MD [Physician] - Brigida Ricardo MD [Physician] - Ca Hurst MD [Physician] - 1 Week (Nurse will call you with a follow up appointment.) Discharge Medications: New nicotine 14 mg/24 hr Patch 24 Hour 14 mg transdermal DAILY 14 Days RF: 0 prednisone 20 mg Tablet 40 mg PO DAILY Qty: 4 RF: 0 Continued buspirone 5 mg Tablet 5 mg PO TID RF: 0 meclizine 12.5 mg Tablet 12.5 mg PO TID PRN (Reason: Dizziness) RF: 0 oxycodone-acetaminophen 10-325 mg Tablet 1 tab PO Q6H PRN (Reason: Mild Pain (Scale Score 1-4)) RF: 0 albuterol sulfate 90 mcg/actuation Hfa Aerosol Inhaler 1 inh INHALATION Q4-6H PRN (Reason: Dyspnea) RF: 0 metoprolol tartrate 25 mg Tablet 12.5 mg PO BID RF: 0 Combivent Respimat 20-100 mcg/actuation Mist 1 puff INHALATION QID PRN (Reason: Shortness Of Breath) RF: 0 omeprazole 20 mg Capsule,Delayed Release(Dr/Ec) 20 mg PO DAILY Qty: 30 RF: 0 ferrous sulfate 325 mg (65 mg iron) tablet 325 mg PO BID Qty: 60 RF: 0 prednisone 10 mg tablet 10 mg PO DAILY RF: 0 Trelegy Ellipta 100-62.5-25 mcg blister with device 1 puff PO DAILY RF: 0 Eliquis 2.5 mg tablet 2.5 mg PO BID Qty: 0 RF: 0 lorazepam 0.5 mg tablet 0.5 mg PO Q8H PRN (Reason: anxiety) RF: 0 zolpidem 5 mg tablet 5 mg PO BEDTIME PRN (Reason: insomnia) RF: 0 Trelegy Ellipta 100-62.5-25 mcg blister with device 1 inh inhalation DAILY RF: 0 Discontinued warfarin 2.5 mg tablet 1 - 2 tab PO DAILY RF: 0 Discharge Orders: Discharge Order (Routine); Ordered 10/28/20 Ordered By: Teresa Alarcon Diet: advance to usual diet Activity on Discharge: As tolerated Visit Report Forms: Patient Portal Discharge page Care Plan Goals: recovery , avoid hospitalization, Health Concerns: See below Plan of Treatment: you were admitted to the hospital for management of COPD exacerbation. You were treated with a course of IV steroids and will be discharged on 4 more days of oral prednisone 40 mg daily. You were also found to be anemic. Work up including EGD as well as colonoscopy did not find a source of bleed. you will need to follow up with Gi as well as Hematology to identify the source of anemia and follow up on biopsy results of the polyp removed during colonoscopy Please hold eliquis for another 2 days, and can resume on 10/30 If you have black stools or bright red blood per rectum, dizziness, increased SOB, please return to the hospital
[2020-10-28] MEDS: Meclizine HCl 12.5 MG TABLET PO (13:36)
--- NOTE | 2020-10-28 14:23 | HO.POSTANES ---
Post Anesthesia Evaluation Post Anesthesia Evaluation Vital Signs: Vital Signs Temp Pulse Resp BP Pulse Ox 10/28/20 13:49 88 10/28/20 11:33 102 H 10/28/20 08:00 97.8 F 91 18 108/41 L 99 10/28/20 07:48 84 10/28/20 04:00 97.6 F 87 18 107/50 L 92 Anesthesia: Monitored Mental Status: Awake Pain Control: Satisfactory Nausea/Vomiting: None Hydration: Adequate Anesthesia-Related Issues: No Anes. Related Issues
== END 2020-10-28 14:19 | disposition home health service (06) | DRG 377 ==
LOC: HO.ED 22:42 → HO.IMC 10-22 00:13
PROVIDERS: Family Medicine; Internal Medicine Gastroenterology; Admitting Provider Internal Medicine; Emergency Provider Emergency Medicine Emergency Medical Services; Visit Provider Internal Medicine
PROC: 0DJ08ZZ Inspection of Upper Intestinal Tract, Via Natural or Artificial Opening Endoscopic (ICD-10-PCS; principal; 2020-10-23 10:40)
PROC: 0DJD8ZZ Inspection of Lower Intestinal Tract, Via Natural or Artificial Opening Endoscopic (ICD-10-PCS; CPT 45378; principal; 2020-10-27 13:10)
DX: K92.2 Gastrointestinal hemorrhage, unspecified (principal); E43 Unspecified severe protein-calorie malnutrition; J44.0 Chronic obstructive pulmonary disease with (acute) lower respiratory infection; Z68.1 Body mass index [BMI] 19.9 or less, adult; I48.91 Unspecified atrial fibrillation; I95.1 Orthostatic hypotension; D50.0 Iron deficiency anemia secondary to blood loss (chronic); I48.0 Paroxysmal atrial fibrillation; F17.210 Nicotine dependence, cigarettes, uncomplicated; Z71.6 Tobacco abuse counseling; K59.09 Other constipation; K21.9 Gastro-esophageal reflux disease without esophagitis; Z20.828 Contact with and (suspected) exposure to other viral communicable diseases; Z79.899 Other long term (current) drug therapy
CPT/HCPCS: 0241U; 36415; 71045; 80048; 80076; 81001; 82272; 82607; 82746; 83605; 83880; 84134; 84443; 84484; 85007; 85014; 85018; 85025; 85027; 85610; 85730; 86850; 86870; 86885; 86900; 86901; 86902; 86920; 86922; 87040; 88305; 93005; 94640; 97162; 97530; 99285; J0696; J2370; J2920; P9016

== ENCOUNTER 2020-11-27 18:14 | Inpatient (IN) | payer MEDICARE, SELFPAY ==
[2020-11-27 18:22] VITALS: BP 92/46; PULSE 102; RESP 22; TEMP 36.5; O2SAT 100; BMI 11.7
--- NOTE | 2020-11-27 18:32 | PC.NURSE ---
katina, son, at [phone]
--- NOTE | 2020-11-27 18:39 | ED.RECABL ---
HPI - Recheck/Abnormal Lab/Rx General Chief Complaint: Recheck/Abnormal Lab/Rx Stated Complaint: ABNORMAL LABS,TOLD TO COME BY PCP OFFICE Time Seen by Provider: 11/27/20 18:27 Source: patient Mode of arrival: ambulatory Limitations: no limitations History of Present Illness HPI narrative: Patient comes to the emergency room for ?abnormal labs?, patient states that her visiting nurse told her that her pCO2 is 45. Patient is known to be a COPD patient, uses oxygen constantly at 2.5 L. Patient states that she feels well, has no complaints. Related Data Home Medications Medication Instructions Recorded Confirmed albuterol sulfate 1 inh INHALATION Q4H PRN 08/13/20 11/27/20 buspirone 5 mg PO TID 08/13/20 11/27/20 meclizine 12.5 mg PO TID PRN 08/13/20 11/27/20 metoprolol tartrate 12.5 mg PO BID 08/13/20 11/27/20 oxycodone-acetaminophen 1 tab PO Q6H PRN 08/13/20 11/27/20 lorazepam 0.5 mg PO Q8H PRN 10/01/20 11/27/20 zolpidem 5 mg PO BEDTIME PRN 10/01/20 11/27/20 apixaban [Eliquis] 2.5 mg PO BID 11/27/20 11/27/20 rjlrxcmftzl-blndogfgh-[id number] 1 inh INHALATION DAILY 11/27/20 11/27/20 [Trelegy Ellipta] ipratropium-albuterol [Combivent 1 puff INHALATION QID 11/27/20 11/27/20 Respimat] Previous Rx's Medication Instructions Recorded ferrous sulfate 325 mg PO BID #60 tab 08/16/20 Allergies Allergy/AdvReac Type Severity Reaction Status Date / Time No Known Allergies Allergy Verified 11/27/20 18:29 [No Known Allergies*] Review of Systems Review of Systems: Constitutional : Continues Weight loss for the last 2 years, No Fever, No Chills, No Night Sweats, No Fatigue, No Malaise ENT/Mouth : No Hearing loss, No Ear Pain, No Nasal Congestion, No Sinus Pain, No Hoarseness, No sore throat, No Rhinorrhea, No Swallowing Difficulty Eyes: No Eye Pain, No Swelling, No Redness, No Foreign Body, No Discharge, No Vision Changes Cardiovascular : No Chest Pain, chronic SOB, complaining of 2 weeks of lower extremity edema Respiratory : Chronic cough at baseline, production of sputum at baseline, No Wheezing, No Smoke Exposure, Gastrointestinal : No Nausea, No Vomiting, No Diarrhea, No Constipation, No abdominal Pain, No Hematochezia, No Melena Genitourinary : no irregular bleeding, No Dysuria, No Urinary Frequency, No Hematuria, No Urinary Incontinence, No Urgency, No Flank Pain, No Urinary Flow Changes, No Hesitancy Musculoskeletal : No joint pain, No Myalgias, No Joint Swelling, complaining of chronic back pain due to old lumbar compression fractures Skin : Petechial rash from scratching, a painful Neuro : No Weakness, No Numbness, No Paresthesias, No Loss of Consciousness, No Dizziness, No Headache Psych : No Anxiety/Panic, No Depression, No SI/HI/AH/VH, No Social Issues, Heme/Lymph: No Bruising, No Bleeding,No Lymphadenopathy Endocrine : No Polyuria, No Polydipsia, No Temperature Intolerance FOR[facility]LY [facility] Past Medical History Medical History Anticoagulated on Coumadin Atrial fibrillation Chronic respiratory failure with hypoxia COPD (chronic obstructive pulmonary disease) Depression GERD (gastroesophageal reflux disease) Heme positive stool Lumbar vertebral fracture Normocytic anemia Severely underweight adult Symptomatic anemia Vertigo Surgical History History of esophagogastroduodenoscopy (EGD) Hx of appendectomy S/P cholecystectomy Family History Family History (Updated 11/28/20 @ 01:33 by Benjamin Gonzalez MD) Other COPD (chronic obstructive pulmonary disease) Social History Social History (Updated 11/28/20 @ 01:34 by Benjamin Gonzalez MD) Household Members: Family Housing: House Alcohol intake: never Smoking Status: Current every day smoker Tobacco Type: Cigarette Packs Per Day: 0.5 Second Hand Smoke Exposure: No Use of substances other than those prescribed or required for medical reasons: No Advance Directives: Yes Advance Directives Information Provided: No Advance Directives on File: No service: No Current occupational status: retired Physical Exam Vital Signs: Vital Signs: Last Vital Signs Temp 98.3 F 11/27/20 23:57 Pulse 87 11/28/20 01:57 Resp 13 11/28/20 01:57 BP 90/40 L 11/28/20 01:57 Pulse Ox 100 11/28/20 01:57 Body Mass Index 11.7 Appearance: Alert. Oriented X3. No acute distress. Severely underweight Eyes: Pupils equal, round and reactive to light. ENT: Pharynx normal. Neck: Normal inspection. Neck supple. No lymph nodes noted. No crepitus CVS: Normal heart rate and rhythm. Pulses normal. Normal S1 and S2 Respiratory: No respiratory distress. Breath sounds normal. No Wheezing. No rales , on 2.5 L nasal cannula Abdomen: Soft and nontender. No rigidity. No distention. good BS x4 Skin: Skin warm and dry. Petechial rash in both upper extremities, per patient at baseline Extremities: +3 pitting edema bilaterally Neuro: Oriented X 3. No motor deficit. No sensory deficit. Moving all extermities. No slurred speech. Course Course Course Narrative: In September 2020, patient had a dry CT scan of the chest abdomen and pelvis, no masses were visualized. Patient's hemoglobin is 8.1. Patient's occult blood is negative. Patient's low blood pressure is likely secondary to her low weight. Patient states that she usually runs low blood pressures but she is not sure about her actual numbers Patient's bicarb and pCO2 are fairly elevated, however patient is asymptomatic. I discussed the patient with Dr. Keenan, we will go ahead and admit the patient for gentle hydration and observation. MDM - Recheck/Abnormal Lab/Rx Lab Data Result diagrams: 11/27/20 18:58 11/27/20 18:58 Labs: Lab Results 11/27/20 11/27/20 11/27/20 Range/Units 18:58 18:58 18:58 WBC 11.6 H (4.8-10.8) X10*3/uL RBC 2.27 L (4.20-5.50) X10*6/uL Hgb 8.1 L (12.0-16.0) g/dl Hct 23.9 L (37-47) % MCV 105.3 H (80-98) fL MCH 35.7 H (27.0-33.0) pg MCHC 33.9 (31.0-35.0) g/dl RDW 16.4 H (11.0-16.0) % Plt Count 215 D (160-400) X10*3/uL MPV 10.6 (9.4-12.3) fL Immature Gran % (Auto) 1.3 H (0.0-0.4) % Neut % (Auto) 81.9 H (45-73) % Lymph % (Auto) 6.6 L (20-40) % [place] % (Auto) 8.6 (2-11) % Eos % (Auto) 1.1 (0-4) % Baso % (Auto) 0.5 (0-2) % Lymph # (Auto) 0.8 L (1.2-4.9) X10*3/uL [place] # (Auto) 1.0 (0.1-1.2) X10*3/uL Eos # (Auto) 0.1 (0.0-0.4) X10*3/uL Baso # (Auto) 0.1 (0.0-0.2) X10*3/uL Abs Immat Gran (auto) 0.15 H (0.00-0.03) X10*3/uL Absolute Neuts (auto) 9.5 H (2.0-8.3) X10*3/uL Absolute Nucleated RBC 0.000 (0.0-0.012) X10*3/uL Nucleated RBC % (auto) 0.0 (0.0-0.2) /100WBC PT (10.8-13.0) SEC INR (0.9-1.1) ABG pH (7.35-7.45) ABG pCO2 (32-45) mmHg ABG pO2 (83-108) mmHg ABG HCO3 (22-26) mmol/L ABG O2 Saturation % ABG Base Excess VBG pH (7.32-7.43) VBG pCO2 mmHg VBG pO2 mmHg VBG HCO3 mmol/L VBG O2 Saturation % VBG Base Excess mmol/L Oxygen Given Sodium 143 (135-145) mmol/L Potassium 3.5 (3.3-5.1) mmol/l Chloride 91 L (96-108) mmol/L Carbon Dioxide 45 H* D (22-29) mmol/L Anion Gap 11 L (12-20) BUN 18 H D (9-16) mg/dL Creatinine 0.65 (0.5-1.4) mg/dL Estim Creat Clear Calc 35.4 Estimated GFR > 60 Random Glucose 90 D (60-115) mg/dL Calcium 8.6 D (8.4-10.2) mg/dL Total Bilirubin 2.5 H (0.0-1.0) mg/dL Direct Bilirubin 1.0 H (0.0-0.5) mg/dL AST 18 (5-31) U/L ALT 11 (0-31) U/L Alkaline Phosphatase 51 D (39-117) U/L B-Natriuretic Peptide 67 (<100) pg/mL Total Protein 5.9 L (6.5-8.0) g/dL Albumin 4.0 (3.5-5.0) g/dL Stool Occult Blood (NEG) COVID-19 ([facility]SE[facility]) (Negative) COVID-19 Clin Com 11/27/20 11/27/20 11/27/20 Range/Units 18:58 18:58 18:58 WBC (4.8-10.8) X10*3/uL RBC (4.20-5.50) X10*6/uL Hgb (12.0-16.0) g/dl Hct (37-47) % MCV (80-98) fL MCH (27.0-33.0) pg MCHC (31.0-35.0) g/dl RDW (11.0-16.0) % Plt Count (160-400) X10*3/uL MPV (9.4-12.3) fL Immature Gran % (Auto) (0.0-0.4) % Neut % (Auto) (45-73) % Lymph % (Auto) (20-40) % [place] % (Auto) (2-11) % Eos % (Auto) (0-4) % Baso % (Auto) (0-2) % Lymph # (Auto) (1.2-4.9) X10*3/uL [place] # (Auto) (0.1-1.2) X10*3/uL Eos # (Auto) (0.0-0.4) X10*3/uL Baso # (Auto) (0.0-0.2) X10*3/uL Abs Immat Gran (auto) (0.00-0.03) X10*3/uL Absolute Neuts (auto) (2.0-8.3) X10*3/uL Absolute Nucleated RBC (0.0-0.012) X10*3/uL Nucleated RBC % (auto) (0.0-0.2) /100WBC PT 14.5 H D (10.8-13.0) SEC INR 1.2 H (0.9-1.1) ABG pH (7.35-7.45) ABG pCO2 (32-45) mmHg ABG pO2 (83-108) mmHg ABG HCO3 (22-26) mmol/L ABG O2 Saturation % ABG Base Excess VBG pH 7.51 H (7.32-7.43) VBG pCO2 80 mmHg VBG pO2 143 mmHg VBG HCO3 64 mmol/L VBG O2 Saturation 99.0 % VBG Base Excess 37.0 mmol/L Oxygen Given Sodium (135-145) mmol/L Potassium (3.3-5.1) mmol/l Chloride (96-108) mmol/L Carbon Dioxide (22-29) mmol/L Anion Gap (12-20) BUN (9-16) mg/dL Creatinine (0.5-1.4) mg/dL Estim Creat Clear Calc Estimated GFR Random Glucose (60-115) mg/dL Calcium 8.7 (8.4-10.2) mg/dL Total Bilirubin (0.0-1.0) mg/dL Direct Bilirubin (0.0-0.5) mg/dL AST (5-31) U/L ALT (0-31) U/L Alkaline Phosphatase (39-117) U/L B-Natriuretic Peptide (<100) pg/mL Total Protein (6.5-8.0) g/dL Albumin (3.5-5.0) g/dL Stool Occult Blood (NEG) COVID-19 ([facility]SE[facility]) (Negative) COVID-19 Clin Com 11/27/20 11/27/20 11/28/20 Range/Units 21:01 22:27 00:46 WBC (4.8-10.8) X10*3/uL RBC (4.20-5.50) X10*6/uL Hgb (12.0-16.0) g/dl Hct (37-47) % MCV (80-98) fL MCH (27.0-33.0) pg MCHC (31.0-35.0) g/dl RDW (11.0-16.0) % Plt Count (160-400) X10*3/uL MPV (9.4-12.3) fL Immature Gran % (Auto) (0.0-0.4) % Neut % (Auto) (45-73) % Lymph % (Auto) (20-40) % [place] % (Auto) (2-11) % Eos % (Auto) (0-4) % Baso % (Auto) (0-2) % Lymph # (Auto) (1.2-4.9) X10*3/uL [place] # (Auto) (0.1-1.2) X10*3/uL Eos # (Auto) (0.0-0.4) X10*3/uL Baso # (Auto) (0.0-0.2) X10*3/uL Abs Immat Gran (auto) (0.00-0.03) X10*3/uL Absolute Neuts (auto) (2.0-8.3) X10*3/uL Absolute Nucleated RBC (0.0-0.012) X10*3/uL Nucleated RBC % (auto) (0.0-0.2) /100WBC PT (10.8-13.0) SEC INR (0.9-1.1) ABG pH 7.51 H (7.35-7.45) ABG pCO2 72 H* (32-45) mmHg ABG pO2 129 H (83-108) mmHg ABG HCO3 58 H (22-26) mmol/L ABG O2 Saturation 100.0 % ABG Base Excess 31.3 VBG pH (7.32-7.43) VBG pCO2 mmHg VBG pO2 mmHg VBG HCO3 mmol/L VBG O2 Saturation % VBG Base Excess mmol/L Oxygen Given 3 L Sodium (135-145) mmol/L Potassium (3.3-5.1) mmol/l Chloride (96-108) mmol/L Carbon Dioxide (22-29) mmol/L Anion Gap (12-20) BUN (9-16) mg/dL Creatinine (0.5-1.4) mg/dL Estim Creat Clear Calc Estimated GFR Random Glucose (60-115) mg/dL Calcium (8.4-10.2) mg/dL Total Bilirubin (0.0-1.0) mg/dL Direct Bilirubin (0.0-0.5) mg/dL AST (5-31) U/L ALT (0-31) U/L Alkaline Phosphatase (39-117) U/L B-Natriuretic Peptide (<100) pg/mL Total Protein (6.5-8.0) g/dL Albumin (3.5-5.0) g/dL Stool Occult Blood NEG (NEG) COVID-19 ([facility]SE[facility]) Negative (Negative) COVID-19 Clin Com See Note Imaging Data Chest x-ray: Radiologist's impression: FINDINGS: Similar appearance of chronic coarse interstitial opacity. No focal consolidation or mass. No pleural effusion or pneumothorax. Calcified aortic arch. Normal heart size. Vertebroplasty cement again noted in the lumbar spine. XR/XR chest 1V IMPRESSION: Similar appearance of chronic coarse interstitial opacities. No new findings to suggest superimposed pulmonary edema. Discharge Plan Discharge Clinical Impression: Alkalosis, metabolic Patient Disposition: Admitted as Observation
--- NOTE | 2020-11-27 18:45 | XR_ITS ---
EXAMINATION: XR CHEST CLINICAL INFORMATION: Pulmonary edema? COMPARISON: 10/21/2020 TECHNIQUE: Frontal view of the chest was obtained. FINDINGS: Similar appearance of chronic coarse interstitial opacity. No focal consolidation or mass. No pleural effusion or pneumothorax. Calcified aortic arch. Normal heart size. Vertebroplasty cement again noted in the lumbar spine. XR/XR chest 1V IMPRESSION: Similar appearance of chronic coarse interstitial opacities. No new findings to suggest superimposed pulmonary edema.
[2020-11-27] MEDS: oxyCODONE HCl Immed Release 5 MG TABLET 10 MG PO (18:51)
[2020-11-27 19:05] LABS: MANUAL DIFF FLAG NO
[2020-11-27 19:14] LABS: INTERNATIONAL NORM RATIO 1.2 (0.9-1.1); PCO2 VBG 80 mmHg; PO2 VBG 143 mmHg; Prothrombin Time 14.5 SEC (10.8-13.0); pH VBG 7.51 (7.32-7.43)
[2020-11-27 19:15] LABS: HCO3 VBG 64 mmol/L
[2020-11-27 19:20] LABS: Basophils Absolute Auto 0.1 X10*3/uL (0.0-0.2); Basophils Percent Auto 0.5 % (0-2); Eosinophils Absolute Auto 0.1 X10*3/uL (0.0-0.4); Eosinophils Percent Auto 1.1 % (0-4); Hematocrit 23.9 % (37-47); Hemoglobin 8.1 g/dl (12.0-16.0); Imm Gran Abs Auto 0.15 X10*3/uL (0.00-0.03); Imm Gran Pct Auto 1.3 % (0.0-0.4); Lymphocytes Absolute Auto 0.8 X10*3/uL (1.2-4.9); Lymphocytes Percent Auto 6.6 % (20-40); Mean Corpuscular HGB Conc 33.9 g/dl (31.0-35.0); Mean Corpuscular Hemoglobin 35.7 pg (27.0-33.0); Mean Corpuscular Volume 105.3 fL (80-98); Mean Platelet Volume 10.6 fL (9.4-12.3); Monocytes Percent Auto 8.6 % (2-11); Neutrophils Absolute Auto 9.5 X10*3/uL (2.0-8.3); Neutrophils Percent Auto 81.9 % (45-73); Platelet Count 215 X10*3/uL (160-400); Red Blood Count 2.27 X10*6/uL (4.20-5.50); Red Cell Distribution Width 16.4 % (11.0-16.0); White Blood Count 11.6 X10*3/uL (4.8-10.8)
[2020-11-27 19:28] LABS: Calcium 8.7 mg/dL (8.4-10.2)
[2020-11-27 19:35] LABS: B Type Natriuretic Peptide 67 pg/mL (<100)
--- NOTE | 2020-11-27 19:39 | PC.NURSE ---
pt requesting additional blanket, warm blanket provided. no additional complaints at this time.
[2020-11-27 20:13] LABS: Alanine Aminotransferase 11 U/L (0-31); Alkaline Phosphatase 51 U/L (39-117); Anion Gap 11 (12-20); Aspartate Amino Transferase 18 U/L (5-31); Bilirubin Total 2.5 mg/dL (0.0-1.0); Blood Urea Nitrogen 18 mg/dL (9-16); Calcium 8.6 mg/dL (8.4-10.2); Carbon Dioxide 45 mmol/L (22-29); Chloride 91 mmol/L (96-108); Creatinine Clr Calc Pharmacy 35.4; Estimated Glomerular Filt Rate > 60; Glucose Random 90 mg/dL (60-115); Potassium 3.5 mmol/l (3.3-5.1); Sodium 143 mmol/L (135-145); Total Protein 5.9 g/dL (6.5-8.0)
[2020-11-27 20:43] VITALS: O2SAT 95
[2020-11-27 21:09] LABS: Pt Ventilation O2% 3 L
[2020-11-27 21:13] LABS: Base Excess ABG 31.3; HCO3 ABG 58 mmol/L (22-26); PO2 ABG 129 mmHg (83-108); pH ABG 7.51 (7.35-7.45)
[2020-11-27 21:19] LABS: ABG PCO2 72 mmHg (32-45)
[2020-11-27 21:22] VITALS: BP 91/37; PULSE 100; RESP 22; TEMP 36.8; O2SAT 100
[2020-11-27] MEDS: Acetaminophen 325 MG TABLET 650 MG PO (21:32)
[2020-11-27 22:32] VITALS: BP 90/38; PULSE 97; RESP 14; O2SAT 98
[2020-11-27] MEDS: 0.9 % Sodium Chloride 1,000 ML 250 ML IVCONT (22:32)
[2020-11-27 23:07] LABS: COVID-19 Test Negative (Negative)
[2020-11-27 23:57] VITALS: BP 88/34; PULSE 88; RESP 14; TEMP 36.8; O2SAT 100
[2020-11-28] VITALS (12 sets, daily range): BP systolic 84–110; BP diastolic 30–59; PULSE 77–95; RESP 13–22; TEMP 36.5–36.9; O2SAT 97–100
--- NOTE | 2020-11-28 | XR_ITS ---
EXAMINATION: XR CHEST CLINICAL INFORMATION: Evaluate for fluid overload COMPARISON: Previous chest x-rays most recent from yesterday TECHNIQUE: Frontal view of the chest was obtained. FINDINGS: The cardiac and mediastinal contours are stable. The lungs are well inflated. There are coarse lung markings similar to previous exams. No evidence of pulmonary edema or pneumonia is seen. There is no pleural effusion. There are degenerative changes of the spine, scoliosis and post vertebroplasty change. XR/XR chest 1V IMPRESSION: Well-inflated lungs and coarse lung markings similar to previous exams. Evidence of fluid overload is seen.
[2020-11-28] MEDS: 0.9 % Sodium Chloride 1,000 ML 999 ML IVCONT (00:47)
[2020-11-28 00:58] LABS: OBS Int Ctl Valid YES; OBS1 NEG (NEG)
--- NOTE | 2020-11-28 01:25 | PM.IMHP ---
History of Present Illness Date of Service: 11/28/20 Chief Complaint: Abnormal labs 74 year old woman with end stage oxygen-dependent COPD presented from home after having labs drawn at her PCP office. She went for routine lab fraw and later was called back by her PCP when it was noted that her bicarbonate was very elevated. She was referred to the ED for evaluation. She was recently prescribed a 5 day course of Lasix due to some leg edema-had not taken Lasix before. In ED repeat labs showed elevated bicarb. ABG was done that showed elevated pCO2, however there were no old ABGs to compare so the chronicity is unclear. Patient states her COPD seems at baseline-she has chronic coughing but not producing more phlegm than usual. Has dyspnea with minimal activity at baseline. No fevers/chills. No chest pain. Also noted was downward trend in her blood pressure in the ED with systolic pressures in the 90's and diastolic pressures in the 40's. Review of old H&Ps from prior hospital stays showed she had similar blood pressures then as well. She is extremely thin and states she has been losing weight recently. No lethargy reported-only stated she felt tired at home. Review of Systems Review of Systems: Yes all other systems are reviewed and are negative Constitutional: Constitutional: Reports as per HPI Comments: No fevers/chills Eyes: Comments: No vision changes ENT: Comments: No difficulty swallowing Cardiovascular: Comments: No chest pain Respiratory: Respiratory: Reports as per HPI Gastrointestinal: Comments: No abd pain, nausea. vomiting, diarrhea Genitourinary: Comments: No dysuria Musculoskeletal: Comments: Pain at her coccyx area Neurologic: Comments: alert, awake, interacitve Psychiatric: Comments: No anxiety or agitation Hematologic/Lymphatic: Comments: No bruising [facility] Medical History Anticoagulated on Coumadin Atrial fibrillation Chronic respiratory failure with hypoxia COPD (chronic obstructive pulmonary disease) Depression GERD (gastroesophageal reflux disease) Heme positive stool Lumbar vertebral fracture Normocytic anemia Severely underweight adult Symptomatic anemia Vertigo Family History (Updated 11/28/20 @ 01:33 by Benjamin Gonzalez MD) Other COPD (chronic obstructive pulmonary disease) Surgical History History of esophagogastroduodenoscopy (EGD) Hx of appendectomy S/P cholecystectomy Social History (Updated 11/28/20 @ 01:34 by Benjamin Gonzalez MD) Household Members: Family Housing: House Alcohol intake: never Smoking Status: Current every day smoker Tobacco Type: Cigarette Packs Per Day: 0.5 Second Hand Smoke Exposure: No Use of substances other than those prescribed or required for medical reasons: No Advance Directives: Yes Advance Directives Information Provided: No Advance Directives on File: No service: No Current occupational status: retired [employer] Allergies Allergy/AdvReac Type Severity Reaction Status Date / Time No Known Allergies Allergy Verified 11/27/20 18:29 [No Known Allergies*] Home Medications Medication Instructions Recorded Confirmed Type albuterol sulfate 1 inh INHALATION Q4H PRN 08/13/20 11/27/20 History buspirone 5 mg PO TID 08/13/20 11/27/20 History meclizine 12.5 mg PO TID PRN 08/13/20 11/27/20 History metoprolol tartrate 12.5 mg PO BID 08/13/20 11/27/20 History oxycodone-acetaminophen 1 tab PO Q6H PRN 08/13/20 11/27/20 History lorazepam 0.5 mg PO Q8H PRN 10/01/20 11/27/20 History zolpidem 5 mg PO BEDTIME PRN 10/01/20 11/27/20 History apixaban [Eliquis] 2.5 mg PO BID 11/27/20 11/27/20 History hitmfrpucfe-tckzpzqhi-uulfqfjm 1 inh INHALATION DAILY 11/27/20 11/27/20 History [Trelegy Ellipta] ipratropium-albuterol [Combivent 1 puff INHALATION QID 11/27/20 11/27/20 History Respimat] Physical Exam Vital Signs and Narrative: Vital Signs: Last Vital Signs Temp 98.3 F 11/27/20 23:57 Pulse 88 11/27/20 23:57 Resp 14 11/27/20 23:57 BP 88/34 L 11/27/20 23:57 Pulse Ox 100 11/27/20 23:57 Body Mass Index 11.7 Const: Other: Very thin and emaciated General: cooperative HENMT: Other: bitemporal wasting, dry oral mucosa Eyes: Other: No scleral icterus, no conjunctival injections Neck: Other: Thin, no adenopathy Chest: Chest palpation & inspection: normal inspection of the chest Resp: Other: Normal resp effort, quiet breath sounds, diminished at bases with dry insp crackles. No exp wheezes heard Cardio: Other: Regular rate, 2/6 systolic murmur at apex GI: Other: Bowel sounds present, no guarding. Nontender Inspection: Yes normal to inspection Skin: Other: No rashes or bruising seen. No skin breakdown on coccyx Extrem: Other: No leg edema, lower ext warm to the touch Psych: Other: alert and interactive, not anxious or agitated Results Labs CBC and Chem 7: 11/27/20 18:58 11/27/20 18:58 Labs: Laboratory Results - last 24 hr 11/27/20 11/27/20 11/27/20 18:58 18:58 18:58 MCV 105.3 H MCH 35.7 H MCHC 33.9 RDW 16.4 H Plt Count 215 D MPV 10.6 Immature Gran % (Auto) 1.3 H Neut % (Auto) 81.9 H Lymph % (Auto) 6.6 L [place] % (Auto) 8.6 Eos % (Auto) 1.1 Baso % (Auto) 0.5 Lymph # (Auto) 0.8 L [place] # (Auto) 1.0 Eos # (Auto) 0.1 Baso # (Auto) 0.1 Abs Immat Gran (auto) 0.15 H Absolute Neuts (auto) 9.5 H Absolute Nucleated RBC 0.000 Nucleated RBC % (auto) 0.0 PT INR ABG pH ABG pCO2 ABG pO2 ABG HCO3 ABG O2 Saturation ABG Base Excess VBG pH VBG pCO2 VBG pO2 VBG HCO3 VBG O2 Saturation VBG Base Excess Oxygen Given Anion Gap 11 L Estim Creat Clear Calc 35.4 Estimated GFR > 60 Random Glucose 90 D Calcium 8.6 D Total Bilirubin 2.5 H Direct Bilirubin 1.0 H AST 18 ALT 11 Alkaline Phosphatase 51 D B-Natriuretic Peptide 67 Total Protein 5.9 L Albumin 4.0 Stool Occult Blood COVID-19 ([facility]SE[facility]) COVID-19 Clin Com 11/27/20 11/27/20 11/27/20 18:58 18:58 18:58 MCV MCH MCHC RDW Plt Count MPV Immature Gran % (Auto) Neut % (Auto) Lymph % (Auto) [place] % (Auto) Eos % (Auto) Baso % (Auto) Lymph # (Auto) [place] # (Auto) Eos # (Auto) Baso # (Auto) Abs Immat Gran (auto) Absolute Neuts (auto) Absolute Nucleated RBC Nucleated RBC % (auto) PT 14.5 H D INR 1.2 H ABG pH ABG pCO2 ABG pO2 ABG HCO3 ABG O2 Saturation ABG Base Excess VBG pH 7.51 H VBG pCO2 80 VBG pO2 143 VBG HCO3 64 VBG O2 Saturation 99.0 VBG Base Excess 37.0 Oxygen Given Anion Gap Estim Creat Clear Calc Estimated GFR Random Glucose Calcium 8.7 Total Bilirubin Direct Bilirubin AST ALT Alkaline Phosphatase B-Natriuretic Peptide Total Protein Albumin Stool Occult Blood COVID-19 (NASEEM) COVID-Football Meister 11/27/20 11/27/20 11/28/20 21:01 22:27 00:46 MCV MCH MCHC RDW Plt Count MPV Immature Gran % (Auto) Neut % (Auto) Lymph % (Auto) [place] % (Auto) Eos % (Auto) Baso % (Auto) Lymph # (Auto) [place] # (Auto) Eos # (Auto) Baso # (Auto) Abs Immat Gran (auto) Absolute Neuts (auto) Absolute Nucleated RBC Nucleated RBC % (auto) PT INR ABG pH 7.51 H ABG pCO2 72 H* ABG pO2 129 H ABG HCO3 58 H ABG O2 Saturation 100.0 ABG Base Excess 31.3 VBG pH VBG pCO2 VBG pO2 VBG HCO3 VBG O2 Saturation VBG Base Excess Oxygen Given 3 L Anion Gap Estim Creat Clear Calc Estimated GFR Random Glucose Calcium Total Bilirubin Direct Bilirubin AST ALT Alkaline Phosphatase B-Natriuretic Peptide Total Protein Albumin Stool Occult Blood NEG COVID-19 (NASEEM) Negative COVID-19 Dragon [place] See Note Imaging Radiologist's Impressions: Impressions Chest X-Ray 11/27/20 18:45 IMPRESSION: Similar appearance of chronic coarse interstitial opacities. No new findings to suggest superimposed pulmonary edema. Assessment and Plan (1) Alkalosis, metabolic: Status: Acute 74 year old woman with end stage oxygen dependent COPD (chronic hypoxemic respiratory failure) who presented with very elevated bicarbonate. Elevated bicarb ABG showed elevated pCO2, suggesting this is a chronic issue and she likely has metabolic aklalosis compensating her chronic respiratory failure. The use of diuretics recently could have exacerbated this causing a contraction alkalosis. Hydrated with normal saline and will repeat labs in AM. COPD, chronic hypoxemic and (likely) hypercapneic respiratory failure She does not appear to be having a COPD exacerbation so will not treat with steroids. Trelegy is nonformulary so will substitute Breo Elliipta and SPiriva. No infiltrate on CXR. There were no old ABGs to compare to so will repeat ABG in AM. THough PCO2 elevated she is awake and alert. Hypotension SUspect this is chronic as well as her body weight is only 30kg and she has had lower BPs on prior H&Ps. Hydrated with IVF and will monitor BP. She does not appear septic as she has no localizing signs of infection. Anemia Chronic, likely AOCD. Heme negative stool in ED. Afib hx Continue Metoprolol and Eliquis. Code status DNR/DNI. She was clear that she wanted no resuscitaiton. Healthcare proxy is her son Thien, with whom she lives. DVT proph Already on ELiquis.
[2020-11-28] MEDS: 0.9 % Sodium Chloride 1,000 ML 100 ML IVCONT (02:00)
[2020-11-28 03:08] LABS: Glucose Urine UA NEG (NEG); Leukocyte Esterase Urine NEG (NEG); Nitrite Urine NEG (NEG); Urine Blood NEG (NEG); Urine Ketones NEG (NEG); Urine Protein NEG (NEG-TRACE)
[2020-11-28 03:11] LABS: Appearance Urine CLEAR; Color Urine DARK YELLOW
--- NOTE | 2020-11-28 05:26 | PC.NURSE ---
Hypotensive during shift. SBP the lowest 70's. Per MD, 1 bag of NS bolus given. BP maintaining at 90's. D/t low hgb at 8.1, occult blood stool done, and it was negative. pt will be admitted. Pt alert and oriented. speak full clear sentence. RR even and unlabored. Apple juice given per request. Repositioned frequently for comfort. Pt has stage 1 pressure injury on right buttock.
[2020-11-28 07:06] LABS: Basophils Absolute Auto 0.1 X10*3/uL (0.0-0.2); Basophils Percent Auto 0.3 % (0-2); Eosinophils Absolute Auto 0.1 X10*3/uL (0.0-0.4); Eosinophils Percent Auto 0.7 % (0-4); Hematocrit 22.4 % (37-47); Hemoglobin 7.3 g/dl (12.0-16.0); Imm Gran Abs Auto 0.16 X10*3/uL (0.00-0.03); Imm Gran Pct Auto 1.1 % (0.0-0.4); Lymphocytes Absolute Auto 0.6 X10*3/uL (1.2-4.9); Lymphocytes Percent Auto 3.9 % (20-40); MANUAL DIFF FLAG SCAN; Mean Corpuscular HGB Conc 32.6 g/dl (31.0-35.0); Mean Corpuscular Hemoglobin 35.1 pg (27.0-33.0); Mean Corpuscular Volume 107.7 fL (80-98); Mean Platelet Volume 10.8 fL (9.4-12.3); Monocytes Absolute Auto 0.8 X10*3/uL (0.1-1.2); Monocytes Percent Auto 5.3 % (2-11); Neutrophils Absolute Auto 13.1 X10*3/uL (2.0-8.3); Neutrophils Percent Auto 88.7 % (45-73); Platelet Count 185 X10*3/uL (160-400); Red Blood Count 2.08 X10*6/uL (4.20-5.50); Red Cell Distribution Width 16.6 % (11.0-16.0); SCAN SMEAR FLAG 1; White Blood Count 14.8 X10*3/uL (4.8-10.8)
[2020-11-28 07:37] LABS: SLIDE REVIEW VERIFIED
[2020-11-28] MEDS: Apixaban 2.5 MG TABLET PO ×2 (07:40→20:45)
[2020-11-28 07:41] LABS: Anion Gap 10 (12-20); Blood Urea Nitrogen 14 mg/dL (9-16); Calcium 7.6 mg/dL (8.4-10.2); Carbon Dioxide 37 mmol/L (22-29); Chloride 100 mmol/L (96-108); Creatinine Clr Calc Pharmacy 39.6; Estimated Glomerular Filt Rate > 60; Glucose Random 115 mg/dL (60-115); Potassium 3.3 mmol/l (3.3-5.1); Sodium 144 mmol/L (135-145)
--- NOTE | 2020-11-28 13:10 | PC.NURSE ---
PT STARTED RECEIVING BLOOD AT 1220. VSS STABLE WITH ASYMPTOMATIC BP OF 84/39 BREATHIN WAS EVEN WITHOUT C/O SOB. LUNG CLEAR DIMINISHED. 15MIN VS WERE 98.2 ORL 92 22 96/44 O2 SAT 99% ON 3L. DISCUSSED WITH DR TEMPLE WHO CAME TO SEE PT. TRANSFUSION WAS STOPPED AT 1235 DR TEMPLE DOES NOT FEEL THIS IS A REACTION NEXT SET OF VITALS WERE 98.2 ORL 79 20 BP 98/34. O2 SAT 99% 3L. PT STATED BREATHING FELT BETTER. BUT DID ASK FOR HER ATIVAN.
--- NOTE | 2020-11-28 14:44 | PM.EVENT ---
Event Note Date of Service: 11/28/20 Event Note: Day Team Note S Seen multiple times this AM. Was feeling at baseline this AM. D/w her Re: blood transfusion due to her anemia , she was agreeable. Patient became some what short of breath while transfusing. No fevers. O vitals - last documented Gen - NAD, cachectic CVS - S1S2 Lungs - dim, no rales, no distress Abd - soft, nt/nd Neuro - non-focal A/P 74 yo admitted for abnormal labs (elevated bicarb) suspected contraction alkalosis from recent lasix used received fluid in the ED and overnight Plan was PRBC transfusion, but developed fluid overload so will stop. No evidence of transfusion reaction. Will check repeat cxr. Monitor over night with plans for d/c tomorrow
--- NOTE | 2020-11-28 14:46 | MHC.CM.PN ---
PT REPORTS SHE LIVES AT HOME WITH HER SON WHERE SHE IS INDEPENDENT WITH SELF CARE AND HE ASSISTS WITH CLEANING, MEALS AND TRANSPORTATION. SHE REPORTS SHE HAS A WALKER AND OXYGEN AT HOME. PT REPORTS SHE IS STILL ACTIVE WITH [facility] FOR PRIMARY CARE AND [facility]. SHE HAS A HCP ON FILE NAMING HER SON, SONNY, HER AGENT. IMM WAS REVIEWED AND PT INDICATES UNDERSTANDING CURRENT DISCHARGE PLAN IS HOME WITH RESUMPTION OF [place] [facility] PTS SON WILL TRANSPORT
[2020-11-28] MEDS: 0.9 % Sodium Chloride Flush 3 ML SYRINGE IVFLUSH (15:27)
[2020-11-28 19:25] LABS: Basophils Percent Auto 0.3 % (0-2); Eosinophils Absolute Auto 0.2 X10*3/uL (0.0-0.4); Eosinophils Percent Auto 1.4 % (0-4); Hematocrit 21.2 % (37-47); Hemoglobin 7.3 g/dl (12.0-16.0); Imm Gran Abs Auto 0.15 X10*3/uL (0.00-0.03); Imm Gran Pct Auto 1.3 % (0.0-0.4); Lymphocytes Absolute Auto 0.6 X10*3/uL (1.2-4.9); Lymphocytes Percent Auto 5.5 % (20-40); MANUAL DIFF FLAG SCAN; Mean Corpuscular HGB Conc 34.4 g/dl (31.0-35.0); Mean Corpuscular Hemoglobin 36.1 pg (27.0-33.0); Mean Platelet Volume 10.6 fL (9.4-12.3); Monocytes Absolute Auto 0.7 X10*3/uL (0.1-1.2); Monocytes Percent Auto 6.3 % (2-11); Neutrophils Absolute Auto 9.8 X10*3/uL (2.0-8.3); Neutrophils Percent Auto 85.2 % (45-73); Platelet Count 174 X10*3/uL (160-400); Red Blood Count 2.02 X10*6/uL (4.20-5.50); Red Cell Distribution Width 16.6 % (11.0-16.0); SCAN SMEAR FLAG 1; White Blood Count 11.6 X10*3/uL (4.8-10.8)
[2020-11-28 20:09] LABS: OBS Int Ctl Valid YES; OBS1 NEG (NEG)
[2020-11-28 20:15] LABS: SLIDE REVIEW VERIFIED
[2020-11-29] VITALS: BP 104/49; PULSE 88; RESP 16; TEMP 36.5; O2SAT 98
[2020-11-29] MEDS: 0.9 % Sodium Chloride Flush 3 ML SYRINGE IVFLUSH ×2 (00:37→08:15)
[2020-11-29 03:53] VITALS: BP 108/54; PULSE 82; RESP 16; TEMP 36.6; O2SAT 96
[2020-11-29 07:16] VITALS: BP 100/47; PULSE 81; RESP 22; TEMP 36.4; O2SAT 100
[2020-11-29 08:13] VITALS: BP 100/47; PULSE 81
[2020-11-29] MEDS: Apixaban 2.5 MG TABLET PO (08:15)
[2020-11-29] MEDS: Fluticasone/Vilanterol 100/25 BLST.W.DEV 1 PUFF INHALE (09:07)
[2020-11-29 09:09] VITALS: PULSE 84
[2020-11-29] MEDS: Acetaminophen 325 MG TABLET 650 MG PO (09:25)
--- NOTE | 2020-11-29 09:54 | P.DS_ITS ---
DS: Providers Provider Date of Service: 11/29/20 Date of admission: 11/28/20 01:24 Primary care physician: Unknown Physician DS: Diagnosis Discharge Diagnosis (1) Alkalosis, metabolic: Status: Acute (2) Severe protein-calorie malnutrition: Status: Acute (3) Chronic respiratory failure with hypoxia: Status: Acute (4) COPD (chronic obstructive pulmonary disease): Status: Acute Problem details: On home O2 2L/min (5) Anemia: Status: Acute DS: Medications Discharge Medications Home Medications: Home Medications Medication Instructions Recorded Confirmed albuterol sulfate 1 inh INHALATION Q4H PRN 08/13/20 11/27/20 buspirone 5 mg PO TID 08/13/20 11/27/20 meclizine 12.5 mg PO TID PRN 08/13/20 11/27/20 metoprolol tartrate 12.5 mg PO BID 08/13/20 11/27/20 oxycodone-acetaminophen 1 tab PO Q6H PRN 08/13/20 11/27/20 lorazepam 0.5 mg PO Q8H PRN 10/01/20 11/27/20 zolpidem 5 mg PO BEDTIME PRN 10/01/20 11/27/20 Combivent Respimat 1 puff INHALATION QID 11/27/20 11/27/20 Eliquis 2.5 mg PO BID 11/27/20 11/27/20 Trelegy Ellipta 1 inh INHALATION DAILY 11/27/20 11/27/20 Previous Rx's Medication Instructions Recorded ferrous sulfate 325 mg PO BID #60 tab 08/16/20 DS: Summary Hospital Course Hospital Course: Patient presented with abnormal lab work, elevated bicarb which was deemed secondary to recent use of Lasix in the outpatient setting. She was treated with intravenous fluids with improvement in her bicarb. She was also noted to be more anemic compared to 1 month ago. Due to her end-stage COPD and chronic respiratory failure, blood transfusion was planned but unfortunately she was not able to tolerate this due to fluid overload and so was discontinued. She had no signs of transfusion reaction. She was observed an additional 24 hours in the hospital with normalization of her respiratory status and oxygen requirements at baseline. Patient is currently under palliative care services and transition to hospice care should be considered. Time Spent with Patient Time attestation: Total time spent providing and/or coordinating discharge services: Discharge coordination time: Greater than 30 minutes Physical Exam Vital Signs: Vital Signs: Last Vital Signs Temp 97.6 F 11/29/20 07:16 Pulse 81 11/29/20 08:13 Resp 22 H 11/29/20 07:16 BP 100/47 L 11/29/20 08:13 Pulse Ox 100 11/29/20 07:16 Body Mass Index 11.7 Const: Other: General - no acute distress, appears comfortable; chronically ill-appearing and cachectic Cardiovascular - regular rate and rhythm, S1-S2 Lungs -no tachypnea, no distress, diminished breath sounds, no wheezing or rales Abdomen - soft, nontender, no rebound or guarding Extremities - no edema bilaterally Neuro - awake and alert, no focal deficits DS: Data Data Completed and Pending Completed studies during hospitalization [Text1]: Procedures Excision of Transverse Colon, Via Natural or Artificial Opening Endoscopic, Diagnostic (10/21/20) Extirpation of Matter from Rectum, Via Natural or Artificial Opening (10/21/20) Inspection of Upper Intestinal Tract, Via Natural or Artificial Opening Endoscopic (10/21/20) Transfusion of Nonautologous Red Blood Cells into Peripheral Vein, Percutaneous Approach (10/21/20) Labs on day of discharge: Laboratory Tests 11/27/20 11/27/20 11/27/20 18:58 18:58 18:58 WBC 11.6 H RBC 2.27 L Hgb 8.1 L Hct 23.9 L MCV 105.3 H MCH 35.7 H MCHC 33.9 RDW 16.4 H Plt Count 215 D MPV 10.6 Immature Gran % (Auto) 1.3 H Neut % (Auto) 81.9 H Lymph % (Auto) 6.6 L [place] % (Auto) 8.6 Eos % (Auto) 1.1 Baso % (Auto) 0.5 Lymph # (Auto) 0.8 L [place] # (Auto) 1.0 Eos # (Auto) 0.1 Baso # (Auto) 0.1 Abs Immat Gran (auto) 0.15 H Absolute Neuts (auto) 9.5 H Absolute Nucleated RBC 0.000 Nucleated RBC % (auto) 0.0 Smear Tech's Comments PT INR ABG pH ABG pCO2 ABG pO2 ABG HCO3 ABG O2 Saturation ABG Base Excess VBG pH VBG pCO2 VBG pO2 VBG HCO3 VBG O2 Saturation VBG Base Excess Oxygen Given Sodium 143 Potassium 3.5 Chloride 91 L Carbon Dioxide 45 H* D Anion Gap 11 L BUN 18 H D Creatinine 0.65 Estim Creat Clear Calc 35.4 Estimated GFR > 60 Random Glucose 90 D Calcium 8.6 D Total Bilirubin 2.5 H Direct Bilirubin 1.0 H AST 18 ALT 11 Alkaline Phosphatase 51 D B-Natriuretic Peptide 67 Total Protein 5.9 L Albumin 4.0 Urine Color Urine Appearance Urine pH Ur Specific [place] Urine Protein Urine Glucose (UA) Urine Ketones Urine Blood Urine Nitrite Ur Leukocyte Esterase Stool Occult Blood COVID-19 ([facility]SE[facility]) COVID-19 [employer] Com Blood Type Antibody Screen Antibody Identification Crossmatch ([facility]) 11/27/20 11/27/20 11/27/20 18:58 18:58 18:58 WBC RBC Hgb Hct MCV MCH MCHC RDW Plt Count MPV Immature Gran % (Auto) Neut % (Auto) Lymph % (Auto) [place] % (Auto) Eos % (Auto) Baso % (Auto) Lymph # (Auto) [place] # (Auto) Eos # (Auto) Baso # (Auto) Abs Immat Gran (auto) Absolute Neuts (auto) Absolute Nucleated RBC Nucleated RBC % (auto) Smear Tech's Comments PT 14.5 H D INR 1.2 H ABG pH ABG pCO2 ABG pO2 ABG HCO3 ABG O2 Saturation ABG Base Excess VBG pH 7.51 H VBG pCO2 80 VBG pO2 143 VBG HCO3 64 VBG O2 Saturation 99.0 VBG Base Excess 37.0 Oxygen Given Sodium Potassium Chloride Carbon Dioxide Anion Gap BUN Creatinine Estim Creat Clear Calc Estimated GFR Random Glucose Calcium 8.7 Total Bilirubin Direct Bilirubin AST ALT Alkaline Phosphatase B-Natriuretic Peptide Total Protein Albumin Urine Color Urine Appearance Urine pH Ur Specific [place] Urine Protein Urine Glucose (UA) Urine Ketones Urine Blood Urine Nitrite Ur Leukocyte Esterase Stool Occult Blood COVID-19 ([facility]SEEM) COVID-19 [employer] [facility] Blood Type Antibody Screen Antibody Identification Crossmatch ([facility]) 11/27/20 11/27/20 11/28/20 21:01 22:27 00:46 WBC RBC Hgb Hct MCV MCH MCHC RDW Plt Count MPV Immature Gran % (Auto) Neut % (Auto) Lymph % (Auto) [place] % (Auto) Eos % (Auto) Baso % (Auto) Lymph # (Auto) [place] # (Auto) Eos # (Auto) Baso # (Auto) Abs Immat Gran (auto) Absolute Neuts (auto) Absolute Nucleated RBC Nucleated RBC % (auto) Smear Tech's Comments PT INR ABG pH 7.51 H ABG pCO2 72 H* ABG pO2 129 H ABG HCO3 58 H ABG O2 Saturation 100.0 ABG Base Excess 31.3 VBG pH VBG pCO2 VBG pO2 VBG HCO3 VBG O2 Saturation VBG Base Excess Oxygen Given 3 L Sodium Potassium Chloride Carbon Dioxide Anion Gap BUN Creatinine Estim Creat Clear Calc Estimated GFR Random Glucose Calcium Total Bilirubin Direct Bilirubin AST ALT Alkaline Phosphatase B-Natriuretic Peptide Total Protein Albumin Urine Color Urine Appearance Urine pH Ur Specific [place] Urine Protein Urine Glucose (UA) Urine Ketones Urine Blood Urine Nitrite Ur Leukocyte Esterase Stool Occult Blood NEG COVID-19 ([facility]) Negative COVID-19 Clin Com See Note Blood Type Antibody Screen Antibody Identification Crossmatch ([facility]) 11/28/20 11/28/20 11/28/20 02:59 06:26 06:26 WBC 14.8 H RBC 2.08 L Hgb 7.3 L Hct 22.4 L MCV 107.7 H MCH 35.1 H MCHC 32.6 RDW 16.6 H Plt Count 185 MPV 10.8 Immature Gran % (Auto) 1.1 H Neut % (Auto) 88.7 H Lymph % (Auto) 3.9 L [place] % (Auto) 5.3 Eos % (Auto) 0.7 Baso % (Auto) 0.3 Lymph # (Auto) 0.6 L [place] # (Auto) 0.8 Eos # (Auto) 0.1 Baso # (Auto) 0.1 Abs Immat Gran (auto) 0.16 H Absolute Neuts (auto) 13.1 H Absolute Nucleated RBC 0.000 Nucleated RBC % (auto) 0.0 Smear Tech's Comments VERIFIED PT INR ABG pH ABG pCO2 ABG pO2 ABG HCO3 ABG O2 Saturation ABG Base Excess VBG pH VBG pCO2 VBG pO2 VBG HCO3 VBG O2 Saturation VBG Base Excess Oxygen Given Sodium 144 Potassium 3.3 Chloride 100 Carbon Dioxide 37 H Anion Gap 10 L BUN 14 Creatinine 0.58 Estim Creat Clear Calc 39.6 Estimated GFR > 60 Random Glucose 115 Calcium 7.6 L D Total Bilirubin Direct Bilirubin AST ALT Alkaline Phosphatase B-Natriuretic Peptide Total Protein Albumin Urine Color DARK YELLOW Urine Appearance CLEAR Urine pH 7.0 Ur Specific [place] 1.020 Urine Protein NEG Urine Glucose (UA) NEG Urine Ketones NEG Urine Blood NEG Urine Nitrite NEG Ur Leukocyte Esterase NEG Stool Occult Blood COVID-19 ([facility]) COVID-19 Clin Com Blood Type Antibody Screen Antibody Identification Crossmatch ([facility]) 11/28/20 11/28/20 11/28/20 09:18 19:17 19:55 WBC 11.6 H RBC 2.02 L Hgb 7.3 L Hct 21.2 L MCV 105.0 H MCH 36.1 H MCHC 34.4 RDW 16.6 H Plt Count 174 MPV 10.6 Immature Gran % (Auto) 1.3 H Neut % (Auto) 85.2 H Lymph % (Auto) 5.5 L [place] % (Auto) 6.3 Eos % (Auto) 1.4 Baso % (Auto) 0.3 Lymph # (Auto) 0.6 L [place] # (Auto) 0.7 Eos # (Auto) 0.2 Baso # (Auto) 0.0 Abs Immat Gran (auto) 0.15 H Absolute Neuts (auto) 9.8 H Absolute Nucleated RBC 0.000 Nucleated RBC % (auto) 0.0 Smear Tech's Comments VERIFIED PT INR ABG pH ABG pCO2 ABG pO2 ABG HCO3 ABG O2 Saturation ABG Base Excess VBG pH VBG pCO2 VBG pO2 VBG HCO3 VBG O2 Saturation VBG Base Excess Oxygen Given Sodium Potassium Chloride Carbon Dioxide Anion Gap BUN Creatinine Estim Creat Clear Calc Estimated GFR Random Glucose Calcium Total Bilirubin Direct Bilirubin AST ALT Alkaline Phosphatase B-Natriuretic Peptide Total Protein Albumin Urine Color Urine Appearance Urine pH Ur Specific [place] Urine Protein Urine Glucose (UA) Urine Ketones Urine Blood Urine Nitrite Ur Leukocyte Esterase Stool Occult Blood NEG COVID-19 ([facility]) COVID-19 Clin Com Blood Type O Positive Antibody Screen POSITIVE Antibody Identification Anti-Fya Crossmatch ([facility]) See Detail Discharge Plan Discharge Patient Disposition: Home Health Service Referrals: Physician,Unknown [Primary Care Provider] - Discharge Medications: Continued buspirone 5 mg Tablet 5 mg PO TID RF: 0 meclizine 12.5 mg Tablet 12.5 mg PO TID PRN (Reason: Dizziness) RF: 0 oxycodone-acetaminophen 10-325 mg Tablet 1 tab PO Q6H PRN (Reason: Mild Pain (Scale Score 1-4)) RF: 0 albuterol sulfate 90 mcg/actuation Hfa Aerosol Inhaler 1 inh INHALATION Q4H PRN (Reason: Dyspnea) RF: 0 metoprolol tartrate 25 mg Tablet 12.5 mg PO BID RF: 0 ferrous sulfate 325 mg (65 mg iron) tablet 325 mg PO BID Qty: 60 RF: 0 lorazepam 0.5 mg tablet 0.5 mg PO Q8H PRN (Reason: anxiety) RF: 0 zolpidem 5 mg tablet 5 mg PO BEDTIME PRN (Reason: insomnia) RF: 0 Eliquis 2.5 mg Tablet 2.5 mg PO BID RF: 0 Combivent Respimat 20-100 mcg/actuation Mist 1 puff INHALATION QID RF: 0 Trelegy Ellipta 100-62.5-25 mcg Blister With Device 1 inh INHALATION DAILY RF: 0 Discharge Orders: Discharge Order (Routine); Ordered 11/29/20 Ordered By: Chong Cyr Diet: advance to usual diet Activity on Discharge: As tolerated Visit Report Forms: Patient Portal Discharge page Care Plan Goals: To stay healthy and out of the hospital. Health Concerns: Abnormal Lab work -- this may be have been related to lasix you took recently Plan of Treatment: Continue palliative care treatment. Transition to hospice when appropriate.
[2020-11-29] MEDS: oxyCODONE HCl Immed Release 5 MG TABLET PO (09:57)
--- NOTE | 2020-11-29 10:04 | MHC.CM.PN ---
CM called pts son, Thien ([phone]) who confirmed the pt is active with [facility] for palliative care and will DC home with resumption of the same services. He reports he does need the pt to transport via ambulance as she is unable to get into his vehicle. He is currently working but expects to be home around 1230 hours, transport will be scheduled for 1330 via [facility]. [facility] notified of DC via [employer].
[2020-11-29 11:41] VITALS: BP 104/54; PULSE 75; RESP 20; TEMP 36.6; O2SAT 96
--- NOTE | 2020-11-29 12:59 | MHC.CM.PN ---
CM received a phone call from pts son, Thien, who reported he is on his way home but running a little later than expected. Per conversation, pts ambulance warehouse order picker was rescheduled to 1400 hours. Pt will DC home today with resumption of [facility] Palliative care. Pt will be transported via [facility] at 1400 hours
== END 2020-11-29 14:30 | disposition home health service (06) | DRG 640 ==
LOC: HO.ED 21:56 → HO.EDOVER 11-28 01:36 → HO.IMC 11-28 05:08
PROVIDERS: Internal Medicine; Admitting Provider Internal Medicine; Emergency Provider Emergency Medicine; Visit Provider Family Medicine
DX: E87.3 Alkalosis (principal); E43 Unspecified severe protein-calorie malnutrition; Z68.1 Body mass index [BMI] 19.9 or less, adult; J96.11 Chronic respiratory failure with hypoxia; K21.9 Gastro-esophageal reflux disease without esophagitis; I95.89 Other hypotension; F32.9 Major depressive disorder, single episode, unspecified; F17.210 Nicotine dependence, cigarettes, uncomplicated; D63.8 Anemia in other chronic diseases classified elsewhere; Z71.6 Tobacco abuse counseling; Z99.81 Dependence on supplemental oxygen; Z20.822 Contact with and (suspected) exposure to COVID-19; Z79.01 Long term (current) use of anticoagulants; Z79.891 Long term (current) use of opiate analgesic; Z79.899 Other long term (current) drug therapy; Z66 Do not resuscitate
CPT/HCPCS: 36415; 36430; 71045; 80048; 80076; 81003; 82272; 82310; 82803; 83880; 85025; 85610; 86850; 86870; 86900; 86901; 86902; 86920; 86922; 87635; 96360; 96361; 99284; 99285; P9016

== ENCOUNTER 2020-12-27 01:13 | Inpatient (IN) | payer MEDICARE, SELFPAY ==
[2020-12-27] VITALS (12 sets, daily range): BP systolic 93–122; BP diastolic 27–72; PULSE 66–97; RESP 16–32; TEMP 36.4–36.9; O2SAT 95–100; BMI 12.7
--- NOTE | ~2020-12-27 | XR_ITS ---
EXAMINATION: CHEST 1 VIEW CLINICAL INFORMATION: Shortness of breath. COMPARISON: Multiple prior exams are reviewed. The most recent is from 11/28/2020. TECHNIQUE: An AP view of the chest is provided. FINDINGS: The cardiac silhouette is not enlarged. The mediastinal and hilar contours are unremarkable. There are neither pleural effusions nor pneumothoraces. Stable chronic interstitial disease is noted. There are no consolidations.. The lungs are hyperinflated. The osseous structures are stable. XR/XR chest 1V IMPRESSION: No acute airspace disease. Stable chronic interstitial prominence. Lung hyperinflation.
--- NOTE | 2020-12-27 01:36 | ECG_ITS ---
Test Reason : SOB Blood Pressure : / mmHG Vent. Rate : 087 BPM Atrial Rate : 087 BPM P-R Int : 172 ms QRS Dur : 072 ms QT Int : 358 ms P-R-T Axes : 070 083 071 degrees QTc Int : 430 ms Sinus rhythm with Premature atrial complexes Moderate voltage criteria for LVH, may be normal variant Cannot rule out Septal infarct (cited on or before 22-OCT-2020) Abnormal ECG When compared with ECG of 24-OCT-2020 15:29, No significant changes seen Referred By: Mely Simpson Electronically Signed By:BROOKLYN PONCE MD
[2020-12-27 02:07] LABS: Basophils Absolute Auto 0.1 X10*3/uL (0.0-0.2); Basophils Percent Auto 0.3 % (0-2); Eosinophils Absolute Auto 0.1 X10*3/uL (0.0-0.4); Eosinophils Percent Auto 0.6 % (0-4); Hematocrit 25.7 % (37-47); Imm Gran Abs Auto 0.18 X10*3/uL (0.00-0.03); Imm Gran Pct Auto 0.9 % (0.0-0.4); Lymphocytes Absolute Auto 0.5 X10*3/uL (1.2-4.9); Lymphocytes Percent Auto 2.3 % (20-40); MANUAL DIFF FLAG SCAN; Mean Corpuscular Hemoglobin 36.6 pg (27.0-33.0); Mean Corpuscular Volume 104.5 fL (80-98); Mean Platelet Volume 10.3 fL (9.4-12.3); Monocytes Absolute Auto 1.2 X10*3/uL (0.1-1.2); Monocytes Percent Auto 6.1 % (2-11); Neutrophils Absolute Auto 18.1 X10*3/uL (2.0-8.3); Neutrophils Percent Auto 89.8 % (45-73); Platelet Count 234 X10*3/uL (160-400); Red Blood Count 2.46 X10*6/uL (4.20-5.50); Red Cell Distribution Width 17.3 % (11.0-16.0); SCAN SMEAR FLAG 1; White Blood Count 20.2 X10*3/uL (4.8-10.8)
[2020-12-27] MEDS: methylPREDNISolone Sod Succ/PF 125 MG/2 ML VIAL IVPUSH (02:08)
--- NOTE | 2020-12-27 02:08 | ED.SOB ---
HPI - SOB/Dyspnea General Chief Complaint: Dyspnea Stated Complaint: DIFF BREATHING Time Seen by Provider: 12/27/20 01:35 Source: patient Mode of arrival: EMS History of Present Illness HPI Narrative: This is a 75-year-old female brought in by EMS for complaints progressive shortness of breath over the past few days not associated with chest pain/palpitations/dizziness/fever/chills/GI symptoms/ symptoms. She does endorse an increase in cough with whitish sputum as well as orthopnea, but states that she has had no increase in swelling of her bilateral lower extremities. She endorses she uses oxygen at home at 2.5-3 L via nasal cannula and does continue to smoke. In addition, patient states she has had Lasix before ?but does not like it?. Related Data Home Medications Medication Instructions Recorded Confirmed albuterol sulfate 1 inh INHALATION Q4H PRN 08/13/20 12/27/20 buspirone 5 mg PO TID 08/13/20 12/27/20 meclizine 12.5 mg PO TID PRN 08/13/20 12/27/20 metoprolol tartrate 12.5 mg PO BID 08/13/20 12/27/20 oxycodone-acetaminophen 1 tab PO Q6H PRN 08/13/20 12/27/20 lorazepam 0.5 mg PO Q8H PRN 10/01/20 12/27/20 zolpidem 5 mg PO BEDTIME PRN 10/01/20 12/27/20 Combivent Respimat 1 puff INHALATION QID 11/27/20 12/27/20 Eliquis 2.5 mg PO BID 11/27/20 12/27/20 Trelegy Ellipta 1 inh INHALATION DAILY 11/27/20 12/27/20 Previous Rx's Medication Instructions Recorded ferrous sulfate 325 mg PO BID #60 tab 08/16/20 Allergies Allergy/AdvReac Type Severity Reaction Status Date / Time No Known Allergies Allergy Verified 11/27/20 18:29 [No Known Allergies*] Review of Systems Review of Systems: Pertinent positives and negatives as stated in the HPI and 10 point review systems is otherwise negative. PMFSH Past Medical History Source: nursing notes reviewed Medical History Anticoagulated on Coumadin Atrial fibrillation Chronic respiratory failure with hypoxia COPD (chronic obstructive pulmonary disease) Depression GERD (gastroesophageal reflux disease) Heme positive stool Lumbar vertebral fracture Normocytic anemia Severely underweight adult Symptomatic anemia Vertigo Surgical History History of esophagogastroduodenoscopy (EGD) Hx of appendectomy S/P cholecystectomy Family History Family History Other COPD (chronic obstructive pulmonary disease) Social History Social History Household Members: Family Housing: House Alcohol intake: never Smoking Status: Current every day smoker Tobacco Type: Cigarette Packs Per Day: 0.5 Cigarettes Per Day: 10.0 Smoked in Last 30 Days: Yes Second Hand Smoke Exposure: No Use of substances other than those prescribed or required for medical reasons: No Advance Directives: Yes Advance Directives on File: Yes Advance Directives Date on File: 11/28/20 service: No Current occupational status: retired Physical Exam Vital Signs: Vital Signs: Last Vital Signs Temp 98.3 F 12/27/20 01:23 Pulse 91 12/27/20 02:00 Resp 20 12/27/20 02:00 BP 106/39 L 12/27/20 02:00 Pulse Ox 100 12/27/20 02:00 Body Mass Index 12.7 VITAL SIGNS: Reviewed. GENERAL: Cachectic, chronically ill HEAD: Normocephalic/atraumatic EYES: PERRLA, EOMI EARS: Ext canals without abnormality NOSE: Nares patent bilateral OROPHARYNX: no oral lesions noted, posterior pharynx clear, dry mucosa NECK: Supple, no adenopathy LUNGS: Normal breath sounds. No wheezing, rales, rhonchi and no apparent tachypnea at this time. SpO2<100> nasal cannula CARDIOVASCULAR: Regular rate and rhythm without noted murmurs, no JVD, bilateral lower extremity 1+ pitting edema. ABDOMEN: Soft, non-tender, non-distended with bowel sounds. SKIN: Inspection of the skin reveals no rashes, + jaundice NEUROLOGIC: Alert and oriented x 4. Strength and sensation to light touch were grossly intact x 4. Course Course Course Narrative: This is a 75-year-old female with history and clinical presentation most consistent with CHF exacerbation as opposed to COPD exacerbation due to history of orthopnea and clear whitish sputum production and VBG without indication of CO2 retention. On review of all investigations the noted leukocytosis is likely secondary to recent initiation of daily prednisone as there are no identifiable sources at this time. BNP is elevated with stable renal function. Patient will receive IV Lasix and have a Schulz catheter placed for strict I&O. She is COVID-19 negative. Case was discussed with inpatient hospitalist team and patient was accepted for admission. MDM - SOB/Dyspnea Lab Data Result diagrams: 12/27/20 01:58 12/27/20 01:58 Labs: Lab Results 12/27/20 12/27/20 12/27/20 Range/Units 01:58 01:58 01:58 WBC 20.2 H (4.8-10.8) X10*3/uL RBC 2.46 L D (4.20-5.50) X10*6/uL Hgb 9.0 L D (12.0-16.0) g/dl Hct 25.7 L D (37-47) % MCV 104.5 H (80-98) fL MCH 36.6 H (27.0-33.0) pg MCHC 35.0 (31.0-35.0) g/dl RDW 17.3 H (11.0-16.0) % Plt Count 234 D (160-400) X10*3/uL MPV 10.3 (9.4-12.3) fL Immature Gran % (Auto) 0.9 H (0.0-0.4) % Neut % (Auto) 89.8 H (45-73) % Lymph % (Auto) 2.3 L (20-40) % [place] % (Auto) 6.1 (2-11) % Eos % (Auto) 0.6 (0-4) % Baso % (Auto) 0.3 (0-2) % Lymph # (Auto) 0.5 L (1.2-4.9) X10*3/uL [place] # (Auto) 1.2 (0.1-1.2) X10*3/uL Eos # (Auto) 0.1 (0.0-0.4) X10*3/uL Baso # (Auto) 0.1 (0.0-0.2) X10*3/uL Abs Immat Gran (auto) 0.18 H (0.00-0.03) X10*3/uL Absolute Neuts (auto) 18.1 H (2.0-8.3) X10*3/uL Absolute Nucleated RBC 0.000 (0.0-0.012) X10*3/uL Nucleated RBC % (auto) 0.0 (0.0-0.2) /100WBC Smear Tech's Comments VERIFIED VBG pH (7.32-7.43) VBG pCO2 mmHg VBG pO2 mmHg VBG HCO3 mmol/L VBG O2 Saturation % VBG Base Excess mmol/L Sodium 143 (135-145) mmol/L Potassium 3.9 (3.3-5.1) mmol/L Chloride 98 (96-108) mmol/L Carbon Dioxide 36 H (22-29) mmol/L Anion Gap 13 (12-20) BUN 13 (9-16) mg/dL Creatinine 0.57 (0.5-1.4) mg/dL Estim Creat Clear Calc 41.8 Estimated GFR > 60 Random Glucose 88 (60-115) mg/dL Lactic Acid (0.5-2.0) mmol/L Calcium 8.9 D (8.4-10.2) mg/dL Total Bilirubin 2.8 H (0.0-1.0) mg/dL AST 18 (5-31) U/L ALT 12 (0-31) U/L Alkaline Phosphatase 51 (39-117) U/L B-Natriuretic Peptide (<100) pg/mL Total Protein 6.4 L (6.5-8.0) g/dL Albumin 4.3 (3.5-5.0) g/dL Coronavirus (PCR) NEGATIVE (Negative) Influenza Type A (PCR) NEGATIVE (Negative) Influenza Type B (PCR) NEGATIVE (Negative) RSV RNA Qual (PCR) NEGATIVE (Negative) 12/27/20 12/27/20 12/27/20 Range/Units 01:58 01:58 01:58 WBC (4.8-10.8) X10*3/uL RBC (4.20-5.50) X10*6/uL Hgb (12.0-16.0) g/dl Hct (37-47) % MCV (80-98) fL MCH (27.0-33.0) pg MCHC (31.0-35.0) g/dl RDW (11.0-16.0) % Plt Count (160-400) X10*3/uL MPV (9.4-12.3) fL Immature Gran % (Auto) (0.0-0.4) % Neut % (Auto) (45-73) % Lymph % (Auto) (20-40) % [place] % (Auto) (2-11) % Eos % (Auto) (0-4) % Baso % (Auto) (0-2) % Lymph # (Auto) (1.2-4.9) X10*3/uL [place] # (Auto) (0.1-1.2) X10*3/uL Eos # (Auto) (0.0-0.4) X10*3/uL Baso # (Auto) (0.0-0.2) X10*3/uL Abs Immat Gran (auto) (0.00-0.03) X10*3/uL Absolute Neuts (auto) (2.0-8.3) X10*3/uL Absolute Nucleated RBC (0.0-0.012) X10*3/uL Nucleated RBC % (auto) (0.0-0.2) /100WBC Smear Tech's Comments VBG pH 7.46 H (7.32-7.43) VBG pCO2 57 mmHg VBG pO2 43 mmHg VBG HCO3 41 mmol/L VBG O2 Saturation 80.0 % VBG Base Excess 15.7 mmol/L Sodium (135-145) mmol/L Potassium (3.3-5.1) mmol/L Chloride (96-108) mmol/L Carbon Dioxide (22-29) mmol/L Anion Gap (12-20) BUN (9-16) mg/dL Creatinine (0.5-1.4) mg/dL Estim Creat Clear Calc Estimated GFR Random Glucose (60-115) mg/dL Lactic Acid 0.7 (0.5-2.0) mmol/L Calcium (8.4-10.2) mg/dL Total Bilirubin (0.0-1.0) mg/dL AST (5-31) U/L ALT (0-31) U/L Alkaline Phosphatase (39-117) U/L B-Natriuretic Peptide 117 H (<100) pg/mL Total Protein (6.5-8.0) g/dL Albumin (3.5-5.0) g/dL Coronavirus (PCR) (Negative) Influenza Type A (PCR) (Negative) Influenza Type B (PCR) (Negative) RSV RNA Qual (PCR) (Negative) ECG Data Attestation: I personally reviewed and interpreted this ECG as follows: Prior ECG tracings: available for review (10/24/2020 no acute changes on comparison) Interpretation: Sinus rhythm with marked sinus arrhythmia, HR-87, no evidence of acute ischemia, MD/QRS/QTC are within normal limits. Discharge Plan Discharge Clinical Impression: Hypoxia CHF exacerbation Qualifiers: Heart failure type: unspecified Qualified Code(s): I50.9 - Heart failure, unspecified Patient Disposition: Admitted As Inpatient
[2020-12-27] MEDS: Albuterol Sulfate (0.083%) 2.5 MG/3 ML VIAL.NEB 5 MG INHALE (02:10)
--- NOTE | 2020-12-27 02:13 | PC.NURSE ---
plan at this time: hold on neb, pending co2 results of vbg.
[2020-12-27 02:18] LABS: pH VBG 7.46 (7.32-7.43)
[2020-12-27 02:19] LABS: Base Excess VBG 15.7 mmol/L; HCO3 VBG 41 mmol/L; PCO2 VBG 57 mmHg; PO2 VBG 43 mmHg
[2020-12-27 02:27] LABS: Lactic Acid 0.7 mmol/L (0.5-2.0)
[2020-12-27 02:31] LABS: Alanine Aminotransferase 12 U/L (0-31); Albumin Level 4.3 g/dL (3.5-5.0); Alkaline Phosphatase 51 U/L (39-117); Anion Gap 13 (12-20); Aspartate Amino Transferase 18 U/L (5-31); Bilirubin Total 2.8 mg/dL (0.0-1.0); Blood Urea Nitrogen 13 mg/dL (9-16); Calcium 8.9 mg/dL (8.4-10.2); Carbon Dioxide 36 mmol/L (22-29); Chloride 98 mmol/L (96-108); Creatinine Clr Calc Pharmacy 41.8; Estimated Glomerular Filt Rate > 60; Glucose Random 88 mg/dL (60-115); Potassium 3.9 mmol/L (3.3-5.1); Sodium 143 mmol/L (135-145); Total Protein 6.4 g/dL (6.5-8.0)
--- NOTE | 2020-12-27 02:39 | PC.NURSE ---
plan to continue to hold off on 5mg albuterol neb-until etiology of sob has ruled out CHF. Xray at bedside. montioring now.
[2020-12-27 02:48] LABS: Influenza A PCR NEGATIVE (Negative); Influenza B PCR NEGATIVE (Negative); Resp Syncy Virus RNA Qual PCR NEGATIVE (Negative); SARS COV2 PCR INHOUSE NEGATIVE (Negative)
[2020-12-27 02:50] LABS: SLIDE REVIEW VERIFIED
[2020-12-27 02:57] LABS: B Type Natriuretic Peptide 117 pg/mL (<100)
--- NOTE | 2020-12-27 03:13 | PC.NURSE ---
per md: place merchant for output montioring post lasix adminstiration.
[2020-12-27] MEDS: Furosemide 40 MG/4 ML VIAL IVPUSH ×2 (03:32→08:04)
[2020-12-27 03:35] LABS: Glucose Urine UA NEG (NEG); Leukocyte Esterase Urine NEG (NEG); Nitrite Urine POS (NEG); PH 7.5 (5.0-8.0); UACC Culture Trigger YES; Urine Blood NEG (NEG); Urine Ketones 15 MG/DL (NEG); Urine Protein TRACE MG/DL (NEG-TRACE)
[2020-12-27 03:41] LABS: Appearance Urine CLEAR; Color Urine YELLOW
--- NOTE | 2020-12-27 03:41 | PC.NURSE ---
update given to mariposa green with patient permission. no questions on plan of care at this time.
[2020-12-27 03:53] LABS: Amorphous Sediment Urine 2+ /LPF; Bacteria Urine 3+ /LPF; Mucus Urine TRACE /LPF; RBC Urine 0 /HPF (0); WBC Urine 0-2 /HPF (0-4)
--- NOTE | 2020-12-27 05:25 | PC.NURSE ---
reddend blanchable area noted on coccyx and illiac crests. Hospital bed supplied. Aircompressor supplied. Leatha updated on plan of care.
[2020-12-27] MEDS: cefTRIAXone sodium 1 GM in 0.9 % Sodium Chloride 50 ML IV (05:35)
--- NOTE | 2020-12-27 05:59 | PM.IMHP ---
History of Present Illness Date of Service: 12/27/20 Chief Complaint: SOB This is a 74-year-old female with past medical history of AFib, COPD, anxiety who presents to the hospital complaints of progressive shortness of breath. Patient is also complaining of increased cough and sputum production. She has no fever but has some chills. She is also complaining of orthopnea and PND. She has lower extremity swelling. Has not had any recent travel or sick contact. She was started on prednisone by her primary care physician with improvement in her symptoms. Pt has no headache, change in vision, no chest pain, no abd pain, no n/v, no diarrhea or constipation. She has been having urinary urgency and retention. on arrival to the ED hemodynamically stable with a respiratory rate of 32, blood pressure of 105/27 but patient has been chronically hypotensive, on 3 L of oxygen satting 98% Labs are sig for WBC count of 20.2, Hgb of 9.0 improved from recent discharge, VBG shows pH of 7.46, Total bili of 2.8, BNP of 117 which is higher than her usual UA +ve for Nitrites, and small WBC COVID -ve, Chest xray -ve Review of Systems Review of Systems: Yes all other systems are reviewed and are negative [facility] Medical History Anticoagulated on Coumadin Atrial fibrillation Chronic respiratory failure with hypoxia COPD (chronic obstructive pulmonary disease) Depression GERD (gastroesophageal reflux disease) Heme positive stool Lumbar vertebral fracture Normocytic anemia Severely underweight adult Symptomatic anemia Vertigo Family History Other COPD (chronic obstructive pulmonary disease) Surgical History History of esophagogastroduodenoscopy (EGD) Hx of appendectomy S/P cholecystectomy Social History Household Members: Family Housing: House Alcohol intake: never Smoking Status: Current every day smoker Tobacco Type: Cigarette Packs Per Day: 0.5 Cigarettes Per Day: 10.0 Smoked in Last 30 Days: Yes Second Hand Smoke Exposure: No Use of substances other than those prescribed or required for medical reasons: No Advance Directives: Yes Advance Directives on File: Yes Advance Directives Date on File: 11/28/20 service: No Current occupational status: retired Meds Allergies Allergy/AdvReac Type Severity Reaction Status Date / Time No Known Allergies Allergy Verified 11/27/20 18:29 [No Known Allergies*] Home Medications Medication Instructions Recorded Confirmed Last Taken Type albuterol sulfate 1 inh INHALATION Q4H PRN 08/13/20 12/27/20 08/12/20 History buspirone 5 mg PO TID 08/13/20 12/27/20 08/12/20 History meclizine 12.5 mg PO TID PRN 08/13/20 12/27/20 Unknown History metoprolol tartrate 12.5 mg PO BID 08/13/20 12/27/20 08/12/20 History oxycodone-acetaminophen 1 tab PO Q6H PRN 08/13/20 12/27/20 Unknown History lorazepam 0.5 mg PO Q8H PRN 10/01/20 12/27/20 Unknown History zolpidem 5 mg PO BEDTIME PRN 10/01/20 12/27/20 Unknown History Combivent Respimat 1 puff INHALATION QID 11/27/20 12/27/20 Unknown History Eliquis 2.5 mg PO BID 11/27/20 12/27/20 Unknown History Trelegy Ellipta 1 inh INHALATION DAILY 11/27/20 12/27/20 Unknown History furosemide 1 tab PO DAILY 12/27/20 12/27/20 Unknown History ondansetron HCl tab PO 12/27/20 Unknown History prednisone 1 tab PO DAILY 12/27/20 12/27/20 Unknown History Physical Exam Vital Signs and Narrative: Vital Signs: Last Vital Signs Temp 98.3 F 12/27/20 01:23 Pulse 97 12/27/20 05:50 Resp 16 12/27/20 05:50 BP 93/37 L 12/27/20 05:50 Pulse Ox 98 12/27/20 05:50 Body Mass Index 12.7 Const: General: cooperative and no acute distress Orientation/consciousness: patient oriented x3 Eyes: General: appearance normal, both eyes and all related structures Resp: Effort & Inspection: normal respiratory effort, able to speak in complete sentences and Actively coughing Auscultation: wheezes Cardio: Rate: regular rate Rhythm: regular rhythm GI: Palpation (GI): Soft to palpation Auscultation: normal bowel sounds Skin: General skin exam: no rashes or lesions noted Neuro: General: patient oriented x3 Cognition (Neuro): normal cognition Extrem: Other: 2+ pedal edema bilaterally General: Yes normal to inspection Results Labs CBC and Chem 7: 12/27/20 01:58 12/27/20 01:58 Labs: Laboratory Results - last 24 hr 12/27/20 12/27/20 12/27/20 01:58 01:58 01:58 MCV 104.5 H MCH 36.6 H MCHC 35.0 RDW 17.3 H Plt Count 234 D MPV 10.3 Immature Gran % (Auto) 0.9 H Neut % (Auto) 89.8 H Lymph % (Auto) 2.3 L [place] % (Auto) 6.1 Eos % (Auto) 0.6 Baso % (Auto) 0.3 Lymph # (Auto) 0.5 L [place] # (Auto) 1.2 Eos # (Auto) 0.1 Baso # (Auto) 0.1 Abs Immat Gran (auto) 0.18 H Absolute Neuts (auto) 18.1 H Absolute Nucleated RBC 0.000 Nucleated RBC % (auto) 0.0 Smear Tech's Comments VERIFIED VBG pH VBG pCO2 VBG pO2 VBG HCO3 VBG O2 Saturation VBG Base Excess Anion Gap 13 Estim Creat Clear Calc 41.8 Estimated GFR > 60 Random Glucose 88 Lactic Acid Calcium 8.9 D Total Bilirubin 2.8 H AST 18 ALT 12 Alkaline Phosphatase 51 B-Natriuretic Peptide Total Protein 6.4 L Albumin 4.3 Urine Color Urine Appearance Urine pH Ur Specific Melville Urine Protein Urine Glucose (UA) Urine Ketones Urine Blood Urine Nitrite Ur Leukocyte Esterase Urine RBC Urine WBC Ur Squamous Epith Cells Amorphous Sediment Urine Bacteria Urine Mucus Coronavirus (PCR) NEGATIVE Influenza Type A (PCR) NEGATIVE Influenza Type B (PCR) NEGATIVE RSV RNA Qual (PCR) NEGATIVE 12/27/20 12/27/20 12/27/20 01:58 01:58 01:58 MCV MCH MCHC RDW Plt Count MPV Immature Gran % (Auto) Neut % (Auto) Lymph % (Auto) Verm[place] % (Auto) Eos % (Auto) Baso % (Auto) Lymph # (Auto) Verm[place] # (Auto) Eos # (Auto) Baso # (Auto) Abs Immat Gran (auto) Absolute Neuts (auto) Absolute Nucleated RBC Nucleated RBC % (auto) Smear Tech's Comments VBG pH 7.46 H VBG pCO2 57 VBG pO2 43 VBG HCO3 41 VBG O2 Saturation 80.0 VBG Base Excess 15.7 Anion Gap Estim Creat Clear Calc Estimated GFR Random Glucose Lactic Acid 0.7 Calcium Total Bilirubin AST ALT Alkaline Phosphatase B-Natriuretic Peptide 117 H Total Protein Albumin Urine Color Urine Appearance Urine pH Ur Specific Melville Urine Protein Urine Glucose (UA) Urine Ketones Urine Blood Urine Nitrite Ur Leukocyte Esterase Urine RBC Urine WBC Ur Squamous Epith Cells Amorphous Sediment Urine Bacteria Urine Mucus Coronavirus (PCR) Influenza Type A (PCR) Influenza Type B (PCR) RSV RNA Qual (PCR) 12/27/20 03:26 MCV MCH MCHC RDW Plt Count MPV Immature Gran % (Auto) Neut % (Auto) Lymph % (Auto) Verm[place] % (Auto) Eos % (Auto) Baso % (Auto) Lymph # (Auto) [place] # (Auto) Eos # (Auto) Baso # (Auto) Abs Immat Gran (auto) Absolute Neuts (auto) Absolute Nucleated RBC Nucleated RBC % (auto) Smear Tech's Comments VBG pH VBG pCO2 VBG pO2 VBG HCO3 VBG O2 Saturation VBG Base Excess Anion Gap Estim Creat Clear Calc Estimated GFR Random Glucose Lactic Acid Calcium Total Bilirubin AST ALT Alkaline Phosphatase B-Natriuretic Peptide Total Protein Albumin Urine Color YELLOW Urine Appearance CLEAR Urine pH 7.5 Ur Specific Mel[place] 1.010 Urine Protein TRACE Urine Glucose (UA) NEG Urine Ketones 15 Urine Blood NEG Urine Nitrite POS H Ur Leukocyte Esterase NEG Urine RBC 0 Urine WBC 0-2 Ur Squamous Epith Cells NONE Amorphous Sediment 2+ Urine Bacteria 3+ Urine Mucus TRACE Coronavirus (PCR) Influenza Type A (PCR) Influenza Type B (PCR) RSV RNA Qual (PCR) Imaging Radiologist's Impressions: Impressions Chest X-Ray 12/27/20 01:36 IMPRESSION: No acute airspace disease. Stable chronic interstitial prominence. Lung hyperinflation. Assessment and Plan (1) CHF exacerbation: Qualifiers: Heart failure type: unspecified Qualified Code(s): I50.9 - Heart failure, unspecified Status: Acute (2) Hypoxia: Status: Acute (3) Acute UTI: Status: Acute (4) Severe protein-calorie malnutrition: Status: Acute (5) COPD exacerbation: Status: Acute 75-year-old female presents to the hospital with complaints of shortness of breath # acute on chronic hypoxic respiratory failure - most likely a combination of both CHF exacerbation as well COPD - she has a cough, sputum production, she also has orthopnea, PND as well as lower extremity edema - has elevated BNP - has been hospitalized multiple times with COPD exacerbation in the past 1 year - patient was on Lasix up until November but was stopped due to severe alkalosis Plan: - will start her on Lasix from 40 daily - strict I&O, daily weight, low-sodium diet - will also start her on Solu-Medrol for COPD exacerbation as well as DuoNeb treatments # CHF exacerbation - not on Lasix at this time, taken off her Lasix due to recent hospitalization with alkalosis - will start on Lasix 40 as above - echocardiogram # COPD exacerbation - has dyspnea, cough, sputum production - was on low-dose prednisone but in affect - management as above # acute UTI - complaining of urinary retention as well as an injury to - will start her on ceftriaxone - follow culture # AFib - continue Eliquis and metoprolol # hypotension - appears to be chronic - patient will be on telemetry # anemia - chronic as well with hemoglobin stable and improved from most recent admission DVT prophylaxis, Eliquis Code status: Patient is DNR DNI
--- NOTE | 2020-12-27 06:23 | PC.NURSE ---
per hospitalist titrate down O2 for comfort.
[2020-12-27] MEDS: Albuterol/Iprat 2.5/0.5MG 3 ML AMPUL.NEB INHALE ×2 (07:21→19:31)
[2020-12-27] MEDS: Metoprolol Tartrate 25 MG TABLET 12.5 MG PO ×2 (08:03→20:34)
[2020-12-27] MEDS: oxyCODONE HCl Immed Release 5 MG TABLET 10 MG PO ×3 (08:03→20:34)
[2020-12-27] MEDS: busPIRone HCl 5 MG TABLET PO ×3 (08:03→20:34)
[2020-12-27] MEDS: Apixaban 2.5 MG TABLET PO ×2 (08:03→20:34)
[2020-12-27] MEDS: 0.9 % Sodium Chloride Flush 3 ML SYRINGE IVFLUSH ×3 (08:05→20:35)
--- NOTE | 2020-12-27 13:44 | PM.EVENT ---
Event Note Date of Service: 12/27/20 Event Note: Day Team follow up S Known to me from last admission Seen and examined. Reports feeling better compared to yesterday but she tells me she is just tired and ready to transition to hospice (currently under Palliative care). She tells me that she feels her son is not ready to let me go. O Vitals - Last Documented Gen - cachectic, NAD CVS - S1S2 Lungs - dim, no distress Abd - soft/nt/nd Nuero - aaox3 A/P This is a 75-year-old female with a past medical history of end-stage COPD, chronic respiratory failure on home O2 who is admitted to the hospital for the 2nd time in as many months for shortness of breath. She endorses she is ready for hospice transition, but doesn't think her son is ready. Request for me to speak with her son. Called [facility] and had a long discussion regarding this. He will continue this conversation with his mother upon discharge. For now, continue steroids -- change to po prednisone by tomorrow. Stop lasix, received total 80 mg since admission IV -- do not appear with any significant volume overload. Possible UTI, continue rocephin Remove merchant -- monitor for rentetion Remainder per H&P
--- NOTE | 2020-12-27 16:25 | MHC.CM.PN ---
CM SPOKE TO PTS SON, SONNY ([phone]) WHO REPORTS THE PT LIVES AT HOME WITH HIM AND IS ACTIVE WITH [facility] FOR PALLIATIVE CARE. PT HAS A WALKER AT HOME AND OXYGEN FROM [facility] [place]. PTS HCP IS ON FILE AND HER PCP IS AVA HUBBARD. IMM DELIVERED CURRENT DC PLAN IS HOME WITH RESUMPTION OF [facility] PALLIATIVE VS [facility] PT WILL NEED BLS TRANSPORT
[2020-12-28] VITALS (11 sets, daily range): BP systolic 90–100; BP diastolic 40–48; PULSE 73–100; RESP 15–18; TEMP 36.3–36.8; O2SAT 94–100; BMI 12.7
[2020-12-28] MEDS: cefTRIAXone sodium 1 GM in 0.9 % Sodium Chloride 50 ML IV (05:31)
[2020-12-28] MEDS: oxyCODONE HCl Immed Release 5 MG TABLET 10 MG PO ×4 (06:04→21:08)
[2020-12-28 06:53] LABS: Basophils Percent Auto 0.2 % (0-2); Eosinophils Absolute Auto 0.1 X10*3/uL (0.0-0.4); Eosinophils Percent Auto 0.4 % (0-4); Hematocrit 23.9 % (37-47); Hemoglobin 8.4 g/dl (12.0-16.0); Imm Gran Abs Auto 0.17 X10*3/uL (0.00-0.03); Lymphocytes Absolute Auto 0.4 X10*3/uL (1.2-4.9); Lymphocytes Percent Auto 2.3 % (20-40); MANUAL DIFF FLAG SCAN; Mean Corpuscular HGB Conc 35.1 g/dl (31.0-35.0); Mean Corpuscular Hemoglobin 36.4 pg (27.0-33.0); Mean Corpuscular Volume 103.5 fL (80-98); Mean Platelet Volume 10.9 fL (9.4-12.3); Monocytes Absolute Auto 1.5 X10*3/uL (0.1-1.2); Monocytes Percent Auto 8.5 % (2-11); Neutrophils Percent Auto 87.6 % (45-73); Platelet Count 224 X10*3/uL (160-400); Red Blood Count 2.31 X10*6/uL (4.20-5.50); Red Cell Distribution Width 16.9 % (11.0-16.0); SCAN SMEAR FLAG 1; White Blood Count 17.1 X10*3/uL (4.8-10.8)
[2020-12-28 07:21] LABS: Blood Urea Nitrogen 23 mg/dL (9-16); Calcium 8.4 mg/dL (8.4-10.2); Creatinine Clr Calc Pharmacy 41.1; Estimated Glomerular Filt Rate > 60; Glucose Random 85 mg/dL (60-115)
[2020-12-28 07:41] LABS: Anion Gap 8 (12-20); Chloride 92 mmol/L (96-108); Potassium 3.4 mmol/L (3.3-5.1); Sodium 140 mmol/L (135-145)
[2020-12-28 07:46] LABS: SLIDE REVIEW VERIFIED
[2020-12-28 07:56] LABS: Carbon Dioxide 43 mmol/L (22-29)
[2020-12-28] MEDS: Albuterol/Iprat 2.5/0.5MG 3 ML AMPUL.NEB INHALE ×4 (08:39→20:45)
[2020-12-28] MEDS: Metoprolol Tartrate 25 MG TABLET 12.5 MG PO (09:03)
[2020-12-28] MEDS: 0.9 % Sodium Chloride Flush 3 ML SYRINGE IVFLUSH ×3 (09:03→20:31)
[2020-12-28] MEDS: Apixaban 2.5 MG TABLET PO ×2 (09:04→20:31)
[2020-12-28] MEDS: busPIRone HCl 5 MG TABLET PO ×3 (09:05→20:31)
--- NOTE | 2020-12-28 11:10 | MHC.CLN ---
PT IS SEVERELY MALNOURISHED WILL START ENSURE BID TO INCREASE KCALS MONITOR FOR REFEEDING SEE ALSO CLINICAL NUTRITION ASSESSMENT
[2020-12-28] MEDS: 0.9 % Sodium Chloride 500 ML 50 ML IV (11:30)
[2020-12-28] MEDS: Piperacillin Sodium/Tazobactam 3.375 GM in 0.9 % Sodium Chloride 50 ML IV ×3 (11:41→23:12)
--- NOTE | 2020-12-28 12:28 | P.PNIM_ITS ---
Subjective Subjective Date of Service: 12/28/20 Interval History: seen and examined this Am feels about at baseline. reports urinary symptoms improved ROS General - no fevers or chills Cardiovascular - no chest pain Respiratory - sob at baseline Abdominal- no abdominal pain, nausea, vomiting, diarrhea Physical Exam Vital Signs: Vital Signs: Last Vital Signs Temp 97.9 F 12/28/20 11:18 Pulse 80 12/28/20 12:12 Resp 18 12/28/20 11:18 BP 90/40 L 12/28/20 11:18 Pulse Ox 95 12/28/20 11:18 Body Mass Index 12.7 Const: Other: General - no acute distress, appears comfortable, chronically sick appearing, cachectic Cardiovascular - regular rate and rhythm, S1-S2 Lungs - diminished Abdomen - soft, non-tender, no rebound or guarding Extremities - no edema bilaterally Neuro - awake and alert, no focal deficits Objective Data Current Medications Generic Name Dose Route Start Last Admin Trade Name Freq PRN Reason Stop Dose Admin Acetaminophen 650 mg 12/27/20 06:19 Acetaminophen 325 Mg Tablet PO Q6H PRN Pain, Mild (Pain Scale 1-3) Albuterol/Ipratropium 3 ml 12/27/20 08:00 12/28/20 12:11 Albuterol/Iprat 2.5/0.5mg 3 Ml Ampul.Neb INHALE 3 ml RQ4H WHILE AWAKE MARCOS Administration Albuterol/Ipratropium 3 ml 12/27/20 06:19 Albuterol/Iprat 2.5/0.5mg 3 Ml Ampul.Neb INHALE RQ4H PRN Shortness of Breath/Wheezing Apixaban 2.5 mg 12/27/20 09:00 12/28/20 09:04 Apixaban 2.5 Mg Tablet PO 2.5 mg BID MARCOS Administration Buspirone HCl 5 mg 12/27/20 09:00 12/28/20 09:05 Buspirone Hcl 5 Mg Tablet PO 5 mg TID MARCOS Administration Docusate Sodium 100 mg 12/27/20 06:19 Docusate Sodium 100 Mg Capsule PO DAILY PRN Constipation Sodium Chloride 500 mls @ 50 mls/hr 12/28/20 10:30 12/28/20 11:30 Ns IV 12/28/20 20:29 50 mls/hr .Q10H MARCOS Administration Piperacillin Sod/Tazobactam 50 mls @ 100 mls/hr 12/28/20 12:00 12/28/20 11:41 Sod 3.375 gm/ Sodium Chloride IV 100 mls/hr Q6H MARCOS Administration Lorazepam 0.5 mg 12/27/20 06:19 Lorazepam 0.5 Mg Tablet PO Q8H PRN anxiety Meclizine HCl 12.5 mg 12/27/20 06:19 Meclizine Hcl 12.5 Mg Tablet PO TID PRN Dizziness Metoprolol Tartrate 12.5 mg 12/27/20 09:00 12/28/20 09:03 Metoprolol Tartrate 25 Mg Tablet PO 12.5 mg BID MARCOS Administration Protocol Non-Formulary Medication 1 inhalation 12/27/20 09:00 Oxtmhrsaxpr-Wmlkwebva-Ggoiinvn [Trelegy Ellipta] INHALE DAILY MARCOS Ondansetron HCl 4 mg 12/27/20 06:19 Ondansetron Hcl 4 Mg/2 Ml Vial IVPUSH Q8H PRN Nausea and Vomiting Oxycodone HCl 10 mg 12/27/20 07:06 12/28/20 06:04 Oxycodone Hcl Immed Release 5 Mg Tablet PO 10 mg Q6H PRN Administration Mild Pain (Scale Score 1-4) Prednisone 40 mg 12/28/20 12:30 Prednisone 20 Mg Tablet PO DAILY MARCOS Sodium Chloride 3 ml 12/27/20 08:00 12/28/20 09:03 0.9 % Sodium Chloride Flush 3 Ml Syringe IVFLUSH 3 ml QSHIFT MARCOS Administration Zolpidem Tartrate 5 mg 12/27/20 06:19 Zolpidem Tartrate 5 Mg Tablet PO BEDTIME PRN insomnia Labs CBC & Chem 7: 12/28/20 05:34 12/28/20 05:34 Microbiology Microbiology Results: Microbiology 12/27/20 03:26 Urine clean catch - Schulz Catheter Urine Culture - Preliminary Enterococcus/Streptococcus sp 12/27/20 01:57 Blood - Venous Blood Culture - Preliminary No growth after 24 hours. 12/27/20 01:57 Blood - Venous Blood Culture - Preliminary No growth after 24 hours. Assessment and Plan (1) COPD exacerbation: Status: Acute Assessment and Plan: This is a 75-year-old female who was well known to me from prior hospitalization and presents with complaints of worsening shortness of breath. She has known end-stage COPD and chronic respiratory failure with hypoxia on home O2 at 2 L. she is admitted for further treatment. 1. Acute on chronic respiratory failure with hypoxia and hypercarbia Due to end-stage COPD Down to her baseline 2 L by nasal cannula 2. End-stage COPD, with exacerbation Transition from IV steroids to oral prednisone 30 mg daily [facility] 3. Elevated BNP Clinically does not appear to be in heart failure Received 2 doses of IV Lasix with resultant contraction alkalosis. Stop diuretics, gentle hydration 500 cc of normal saline 4. Urinary tract infection Enterococcus/Streptococcus in the urine Stop ceftriaxone, treat with Zosyn. Hopefully not resistant in can be treated with Augmentin upon discharge Blood cultures negative to date 5. Severe protein calorie malnutrition Due to end-stage COPD Supplements as tolerated 6. Atrial fibrillation Rate controlled Continue metoprolol, low-dose and Eliquis 2.5 b.i.d. 7. Chronic anemia Stable hemoglobin No evidence of bleeding DNR/DNI DVT prophylaxis, Eliquis Dispo: Home with resumption of palliative care services. She/her son/Palliative care agency to speak re: hospice transition upon d/c
[2020-12-28] MEDS: predniSONE 10 MG TABLET 30 MG PO (12:52)
[2020-12-28] MEDS: Acetaminophen 325 MG TABLET 650 MG PO (16:23)
[2020-12-29] VITALS (15 sets, daily range): BP systolic 90–102; BP diastolic 42–55; PULSE 66–144; RESP 15–20; TEMP 36.6–37.3; O2SAT 92–100
[2020-12-29] MEDS: oxyCODONE HCl Immed Release 5 MG TABLET 10 MG PO ×5 (02:40→20:30)
[2020-12-29] MEDS: Piperacillin Sodium/Tazobactam 3.375 GM in 0.9 % Sodium Chloride 50 ML IV ×3 (05:25→17:47)
[2020-12-29 06:07] LABS: Hematocrit 23.7 % (37-47); Hemoglobin 8.1 g/dl (12.0-16.0); Mean Corpuscular HGB Conc 34.2 g/dl (31.0-35.0); Mean Corpuscular Hemoglobin 35.7 pg (27.0-33.0); Mean Corpuscular Volume 104.4 fL (80-98); Mean Platelet Volume 10.9 fL (9.4-12.3); Platelet Count 197 X10*3/uL (160-400); Red Blood Count 2.27 X10*6/uL (4.20-5.50); Red Cell Distribution Width 16.9 % (11.0-16.0); White Blood Count 12.5 X10*3/uL (4.8-10.8)
[2020-12-29 06:40] LABS: Anion Gap 9 (12-20); Blood Urea Nitrogen 16 mg/dL (9-16); Calcium 8.3 mg/dL (8.4-10.2); Carbon Dioxide 41 mmol/L (22-29); Chloride 97 mmol/L (96-108); Creatinine Clr Calc Pharmacy 37.8; Estimated Glomerular Filt Rate > 60; Glucose Random 107 mg/dL (60-115); Potassium 3.6 mmol/L (3.3-5.1); Sodium 143 mmol/L (135-145)
[2020-12-29] MEDS: Albuterol/Iprat 2.5/0.5MG 3 ML AMPUL.NEB INHALE ×3 (07:19→15:12)
[2020-12-29] MEDS: predniSONE 10 MG TABLET 30 MG PO (09:45)
[2020-12-29] MEDS: Metoprolol Tartrate 25 MG TABLET 12.5 MG PO (09:45)
[2020-12-29] MEDS: busPIRone HCl 5 MG TABLET PO ×3 (09:45→20:29)
[2020-12-29] MEDS: Apixaban 2.5 MG TABLET PO ×2 (09:45→20:30)
[2020-12-29] MEDS: 0.9 % Sodium Chloride Flush 3 ML SYRINGE IVFLUSH ×2 (09:46→14:52)
--- NOTE | 2020-12-29 10:39 | MHC.CLN ---
RE: CONSULT SEE CLINICAL NUTRITION ASSESSMENT DATED 12/28/20 SEE ALSO DIETITIAN PROGRESS NOTE DATED 12/28/20
[2020-12-29] MEDS: Acetaminophen 325 MG TABLET 650 MG PO (17:40)
--- NOTE | 2020-12-29 21:49 | ECG_ITS ---
Test Reason : rhythm change Blood Pressure : / mmHG Vent. Rate : 125 BPM Atrial Rate : 131 BPM P-R Int : 000 ms QRS Dur : 070 ms QT Int : 310 ms P-R-T Axes : 000 078 078 degrees QTc Int : 447 ms Atrial fibrillation with rapid ventricular response with premature ventricular or aberrantly conducted complexes Minimal voltage criteria for LVH, may be normal variant Septal infarct , age undetermined Abnormal ECG When compared to the previous EKG of Afib present now Referred By: Shai Auguste Electronically Signed By:Bill Valenzuela
--- NOTE | 2020-12-29 23:03 | PC.NURSE ---
This RN wathcing patient monitor worker. Patient into the 130s-140s Afib. No c/o chest pain/sob/discomfort. MD made aware. This RN spoke to MD. EKG done as ordered. Lopressor 2.5IV ordered for HR >125. Patient HR done to 110s with no intervention. HR currently 110-120. Will continue to monitor. Primary RN aware.
[2020-12-30] VITALS (7 sets, daily range): BP systolic 95–100; BP diastolic 46–55; PULSE 85–129; RESP 20; TEMP 36.8–36.9; O2SAT 95–99
[2020-12-30] MEDS: 0.9 % Sodium Chloride Flush 3 ML SYRINGE IVFLUSH ×2 (00:44→09:34)
[2020-12-30] MEDS: Piperacillin Sodium/Tazobactam 3.375 GM in 0.9 % Sodium Chloride 50 ML IV ×2 (00:45→06:32)
[2020-12-30] MEDS: oxyCODONE HCl Immed Release 5 MG TABLET 10 MG PO ×4 (00:54→13:32)
[2020-12-30] MEDS: Metoprolol Tartrate 5 MG/5 ML VIAL 2.5 MG IVPUSH (05:37)
[2020-12-30] MEDS: Albuterol/Iprat 2.5/0.5MG 3 ML AMPUL.NEB INHALE ×2 (07:17→11:17)
[2020-12-30] MEDS: Apixaban 2.5 MG TABLET PO (09:33)
[2020-12-30] MEDS: predniSONE 10 MG TABLET 30 MG PO (09:33)
[2020-12-30] MEDS: Metoprolol Tartrate 25 MG TABLET 12.5 MG PO (09:33)
[2020-12-30] MEDS: busPIRone HCl 5 MG TABLET PO (09:33)
--- NOTE | 2020-12-30 09:57 | P.DS_ITS ---
DS: Providers Provider Date of Service: 03/13/21 Date of admission: 12/27/20 05:58 Primary care physician: Unknown Physician DS: Diagnosis Discharge Diagnosis (1) COPD exacerbation: Status: Resolved DS: Medications Discharge Medications Home Medications: Home Medications Medication Instructions Recorded Confirmed albuterol sulfate 1 inh INHALATION Q4H PRN 08/13/20 12/27/20 buspirone 5 mg PO TID 08/13/20 12/27/20 meclizine 12.5 mg PO TID PRN 08/13/20 12/27/20 metoprolol tartrate 12.5 mg PO BID 08/13/20 12/27/20 oxycodone-acetaminophen 1 tab PO Q6H PRN 08/13/20 12/27/20 lorazepam 0.5 mg PO Q8H PRN 10/01/20 12/27/20 zolpidem 5 mg PO BEDTIME PRN 10/01/20 12/27/20 Combivent Respimat 1 puff INHALATION QID 11/27/20 12/27/20 Eliquis 2.5 mg PO BID 11/27/20 12/27/20 Trelegy Ellipta 1 inh INHALATION DAILY 11/27/20 12/27/20 furosemide 1 tab PO DAILY 12/27/20 12/27/20 ondansetron HCl tab PO 12/27/20 prednisone 1 tab PO DAILY 12/27/20 12/27/20 Previous Rx's Medication Instructions Recorded ferrous sulfate 325 mg PO BID #60 tab 08/16/20 amoxicillin-pot clavulanate 1 tab PO Q12H #10 tab 12/30/20 [Augmentin] prednisone 30 mg PO DAILY #4 tab 12/30/20 DS: Summary Hospital Course Hospital Course: 75-year-old female who was well known to me from prior hospitalization and presents with complaints of worsening shortness of breath. She has known end- stage COPD and chronic respiratory failure with hypoxia on home O2 at 2 L and still smokes and was admitted for exacerbation of COPD and UTI d/t enterococcus that is multidrug sentitive. She is doing well at this time and will transition to oral Prednisone and advised to stop smoking and continue use of inhalers. For UTI was on Zosyn and will be discharged with Augmentin 500 bid. Encourage to take supplemental protein for severe protein calory malnutrition. She was given IV Lasix for possible for possible CHF Time Spent with Patient Time attestation: Total time spent providing and/or coordinating discharge services: Discharge coordination time: Greater than 30 minutes Physical Exam Vital Signs: Vital Signs: Last Vital Signs Temp 98.2 F 12/30/20 07:43 Pulse 104 H 12/30/20 07:43 Resp 20 12/30/20 07:43 BP 98/46 L 12/30/20 07:43 Pulse Ox 95 12/30/20 07:43 Body Mass Index 12.7 General: AO X 3, no acute distress Resp: CTA bilateral CVS: S1,S2,RRR GI: +BS, NT, no distention Skin: No rash Neuro: motor grossly intact Psych: appropriate affect DS: Data Data Completed and Pending Completed studies during hospitalization [Text1]: Procedures Excision of Transverse Colon, Via Natural or Artificial Opening Endoscopic, Diagnostic (10/21/20) Extirpation of Matter from Rectum, Via Natural or Artificial Opening (10/21/20) Inspection of Upper Intestinal Tract, Via Natural or Artificial Opening Endoscopic (10/21/20) Transfusion of Nonautologous Red Blood Cells into Peripheral Vein, Percutaneous Approach (11/28/20) Labs on day of discharge: Preliminary micro results at discharge 12/27/20 01:57 Blood Culture - Preliminary Blood - Venous No growth after 48 hours. 12/27/20 01:57 Blood Culture - Preliminary Blood - Venous No growth after 48 hours. Discharge Plan Discharge Anticipated Discharge Date/Time: 12/30/20 09:35 Patient Disposition: Home Health Service Discharge Diagnosis: UTI, hypoxia Referrals: [facility] [Outside] Physician,Unknown [Primary Care Provider] - 1 Week (Please make a follow up appointment with your primary care provider within 1 week. If you do not have one please call your insurance and choose one then call the office and make a new patient appointment.) Discharge Medications: New prednisone 10 mg Tablet 30 mg PO DAILY Qty: 4 RF: 0 amoxicillin-pot clavulanate [Augmentin] 500-125 mg tablet 1 tab PO Q12H Qty: 10 RF: 0 Continued buspirone 5 mg Tablet 5 mg PO TID RF: 0 meclizine 12.5 mg Tablet 12.5 mg PO TID PRN (Reason: Dizziness) RF: 0 oxycodone-acetaminophen 10-325 mg Tablet 1 tab PO Q6H PRN (Reason: Mild Pain (Scale Score 1-4)) RF: 0 albuterol sulfate 90 mcg/actuation Hfa Aerosol Inhaler 1 inh INHALATION Q4H PRN (Reason: Dyspnea) RF: 0 metoprolol tartrate 25 mg Tablet 12.5 mg PO BID RF: 0 ferrous sulfate 325 mg (65 mg iron) tablet 325 mg PO BID Qty: 60 RF: 0 prednisone 10 mg tablet 1 tab PO DAILY RF: 0 ondansetron HCl 4 mg tablet PO RF: 0 furosemide 20 mg tablet 1 tab PO DAILY RF: 0 lorazepam 0.5 mg tablet 0.5 mg PO Q8H PRN (Reason: anxiety) RF: 0 zolpidem 5 mg tablet 5 mg PO BEDTIME PRN (Reason: insomnia) RF: 0 Eliquis 2.5 mg Tablet 2.5 mg PO BID RF: 0 Combivent Respimat 20-100 mcg/actuation Mist 1 puff INHALATION QID RF: 0 Trelegy Ellipta 100-62.5-25 mcg Blister With Device 1 inh INHALATION DAILY RF: 0 Discharge Orders: Discharge Order (Routine); Ordered 12/30/20 Ordered By: Manuelito Mcdaniel Diet: advance to usual diet Activity on Discharge: As tolerated Stand Alone Forms: Patient Portal Discharge page Visit Report Forms: Patient Portal Discharge page Care Plan Goals: prevent rehospitalization Health Concerns: copd and chronic smoking Plan of Treatment: stop smoking, use inhalers and steroid Assessment: UTI and hypoxia Discharge Date/Time: 12/30/20 15:00
[2020-12-30] MEDS: Amoxicillin/Potassium Clav 500 MG TABLET PO (10:34)
--- NOTE | 2020-12-30 11:10 | MHC.CM.PN ---
[facility] notified of dc bls needed to transport homem contacted son who will be home after 12:00 imm updated
== END 2020-12-30 15:00 | disposition home health service (06) | DRG 190 ==
LOC: HO.ED 03:27 → HO.IMC 06:16
PROVIDERS: Family Medicine; Admitting Provider Internal Medicine; Emergency Provider Student in an Organized Health Care Education/Training Program; Visit Provider Internal Medicine
DX: J44.1 Chronic obstructive pulmonary disease with (acute) exacerbation (principal); J96.22 Acute and chronic respiratory failure with hypercapnia; J96.21 Acute and chronic respiratory failure with hypoxia; E43 Unspecified severe protein-calorie malnutrition; N39.0 Urinary tract infection, site not specified; Z68.1 Body mass index [BMI] 19.9 or less, adult; F17.210 Nicotine dependence, cigarettes, uncomplicated; I48.91 Unspecified atrial fibrillation; I95.9 Hypotension, unspecified; Z20.822 Contact with and (suspected) exposure to COVID-19; Z99.81 Dependence on supplemental oxygen; I50.9 Heart failure, unspecified; Z71.6 Tobacco abuse counseling; Z79.01 Long term (current) use of anticoagulants; Z79.52 Long term (current) use of systemic steroids; Z79.899 Other long term (current) drug therapy; Z66 Do not resuscitate
CPT/HCPCS: 0241U; 36415; 71045; 80048; 80053; 81001; 81003; 82803; 83605; 83880; 85025; 85027; 87040; 87086; 87088; 87186; 93005; 94640; 96365; 96375; 99285; J0696; J1940; J2543; J2920; J2930